=== PATIENT | female | born 1965 | race Caucasian/White ===

== ENCOUNTER 2018-10-03 15:57 | Inpatient (IN) | payer MEDICARE, MEDICAID ==
[~2018-10-03] VITALS: Ht 177.8 cm; Wt 107.5 kg
--- NOTE | 2018-10-03 16:27 | NUR ---
PT BIBPA FROM SNF FOR BLE CELLULITISL PT AAOX4, PT ON MONITOR, VSS, NAD NOTED ,PENDING ER PROVIDER KIP
[2018-10-03 18:10] LABS: ALANINE AMINOTRANSFERASE 20 U/L (12-78); ALBUMIN 2.6 g/dL (3.4-5.0); ALKALINE PHOSPHATASE 191 U/L (46-116); ASPARTATE AMINOTRANSFERASE 14 U/L (15-37); BILIRUBIN,DIRECT 0.1 mg/dL (0.0-0.2); BILIRUBIN,TOTAL 0.3 mg/dL (0.2-1.0); CALCIUM, SERUM 9.1 mg/dL (8.5-10.1); CARBON DIOXIDE 28 mmol/L (21-32); CHLORIDE 103 mmol/L (98-107); CREATININE 2.4 mg/dL (0.6-1.3); GLUCOSE 51 mg/dL (74-106); POTASSIUM 4.2 mmol/L (3.5-5.1); SODIUM SERUM 137 mmol/L (136-145); TOTAL PROTEIN, SERUM 7.7 g/dL (6.4-8.2); UREA NITROGEN, BLOOD 66 mg/dL (7-18)
[2018-10-03] MEDS ORDERED: PIPERACILLIN /TAZOBACTAM 2.25 G in IV D5W 50 ML IV ONE (18:30)
[2018-10-03] MEDS ORDERED: VANCOMYCIN 1 GM in IV D5W 250 ML IV ONE (18:30)
[2018-10-03 18:53] LABS: BASOPHILS # (AUTO) 0.1 /CMM (0.0-0.2); BASOPHILS % (AUTO) 0.8 % (0.0-2.0); EOSINOPHILS % (AUTO) 3.6 % (0.0-6.0); HEMATOCRIT 36 % (33-45); HEMOGLOBIN 11.4 g/dL (11.5-14.8); LYMPHOCYTES # (AUTO) 1.5 /CMM (0.8-4.8); LYMPHOCYTES % (AUTO) 20.3 % (20.0-44.0); MEAN CORPUSCULAR HGB CONC 32 g/dl (31.0-36.0); MEAN CORPUSCULAR VOLUME 78 fL (82-100); NEUTROPHILS # (AUTO) 4.6 /CMM (1.8-8.9); NEUTROPHILS % (AUTO) 62.3 % (43.0-81.0); PLATELET COUNT (AUTO) 237 /CMM (150-450); RED BLOOD CELL COUNT(AUTO) 4.68 MIL/uL (4.0-5.2); WHITE BLOOD COUNT (AUTO) 7.4 K/uL (4.3-11.0)
[2018-10-03] MEDS ORDERED: IV NS 0.9% 1,000 ML IV PRN (19:32)
[2018-10-03] MEDS ORDERED: MAG HYDROX/AL HYDROX/SIMETH 30 ML UDC PO PRN (20:00)
[2018-10-03] MEDS ORDERED: DEXTROSE 50%-WATER 50 ML DISP.SYRIN IV PRN (20:00)
[2018-10-03] MEDS ORDERED: ZOLPIDEM TARTRATE 5 MG TABLET PO PRN (20:00)
[2018-10-03] MEDS ORDERED: MAGNESIUM HYDROXIDE 30 ML UDC PO PRN (20:00)
[2018-10-03] MEDS ORDERED: ACETAMINOPHEN 325 MG TABLET PO PRN (20:00)
[2018-10-03 20:40] LABS: APPEARANCE,URINE Clear (CLEAR); BILIRUBIN,URINE Negative (NEGATIVE); BLOOD, URINE Trace-intact Ery/uL (NEGATIVE); COLOR,URINE Yellow (YELLOW); KETONES,URINE Negative (NEGATIVE); LEUKOCYTE ESTERASE ,URINE Negative (NEGATIVE); NITRITE, URINE Negative (NEGATIVE); PROTEIN,URINE 100 mg/dl (NEGATIVE); UGLUCOSE Negative (NEGATIVE); UROBILINOGEN,URINE 0.2 EU/dL (0.2)
[2018-10-03 20:44] LABS: BACTERIA,URINE Rare /HPF (None Seen); RBC,URINE 21-50 /HPF (0-2); SQUAMOUS EPITHELIAL CELL,UR Few /HPF (None Seen); WBC,URINE NONE SEEN /HPF (0-3)
[2018-10-03] MEDS ORDERED: FEE PK DOSING 1 MIN EA MC ONE (20:59)
[2018-10-03] MEDS ORDERED: IV D5/ 0.9% NACL 1,000 ML IV PRN (21:00)
[2018-10-03] MEDS ORDERED: CLON1TAB PO (21:03)
[2018-10-03] MEDS ORDERED: GUAI100S9 PO (21:03)
[2018-10-03] MEDS ORDERED: AMOX-430 PO (21:03)
[2018-10-03] MEDS ORDERED: FERR325T23 PO (21:03)
[2018-10-03] MEDS ORDERED: DULO60CA45 PO (21:03)
[2018-10-03] MEDS ORDERED: PANT40TA4 PO (21:03)
[2018-10-03] MEDS ORDERED: PROP40TA7 PO (21:03)
[2018-10-03] MEDS ORDERED: HYDR-4077 PO (21:03)
[2018-10-03] MEDS ORDERED: GABA300C PO (21:03)
[2018-10-03] MEDS ORDERED: DIPH50CA4 PO (21:03)
[2018-10-03] MEDS ORDERED: ACET-73 PO (21:03)
[2018-10-03] MEDS ORDERED: INSU100V27 SQ ×2 (21:03)
[2018-10-03] MEDS ORDERED: DOCU100C36 PO (21:03)
[2018-10-03] MEDS ORDERED: IPRA3AMP23 IH (21:03)
[2018-10-03] MEDS ORDERED: ACET325T53 PO (21:03)
[2018-10-03] MEDS ORDERED: EPOE1VIA7 SQ (21:03)
[2018-10-03] MEDS ORDERED: VIT1TABL44 PO (21:03)
[2018-10-03] MEDS ORDERED: METH10TA2 PO (21:03)
[2018-10-03] MEDS ORDERED: HYDR-4354 PO (21:03)
[2018-10-03] MEDS ORDERED: CLON0.1T PO (21:03)
[2018-10-03] MEDS ORDERED: FURO80TA85 PO (21:03)
[2018-10-03] MEDS ORDERED: ASPI-1169 PO (21:03)
[2018-10-03] MEDS ORDERED: PREG200C PO (21:03)
[2018-10-03] MEDS ORDERED: INSU100V7 SQ (21:03)
--- NOTE | 2018-10-03 21:10 | NUR ---
REPORT GIVEN TO DANUTA GARCIA FOR EARLE
--- NOTE | 2018-10-03 21:50 | NUR ---
DANUTA MS ADMISSION NOTES RECEIVED PATIENT FROM ER [facility]IA [facility]. DX. BILATERAL LOWER EXT. CELLULITIS; ACUTE KIDNEY INJURY. PATIENT IS ALERT AND ORIENTED X3, VERBALLY RESPONSIVE, ABLE TO MAKE NEEDS KNOWN. BREATHING EVEN AND UNLABORED. NO SOB NOTED. TOLERATING ROOM AIR. WITH COMPLAINTS OF PAIN ON BILATERAL LOWER EXT 10/10. WILL GIVE PRN PAIN MEDICATION. SKIN DRY AND WARM TO TOUCH. AFEBRILE. IV ON LEFT FOREARM G#18 INTACT AND PATENT. EXPLAINED THE PROCESS OF ADMISSION. SKIN ASSESSMENT RENDERED - NOTED WITH MULTIPLE WOUNDS AND REDNESS. PICTURES TAKEN AND PLACED IN CHART. ORIENTED TO THE USE OF UNIT AMENITIES. BELONGINGS ACCOUNTED FOR. PATIENT IS AMBULATORY WITH ASSIST. SAFETY MEASURES IN PLACE. CALL LIGHT WITHIN REACH. WILL CONTINUE TO MONITOR.
--- NOTE | 2018-10-03 22:00 | NUR ---
RN MS NOTES SUGGESTED PATIENT TO BE ON BED REST AND USE A BED TO AVOID STRAIN ON LOWER EXTREMITIES. PATIENT REFUSED BED ADAMS. OFFERED A BEDSIDE COMMODE SO THAT PATIENT DOES NOT HAVE TO WALK LONG DISTANCE BUT REFUSED THAT ALSO. WILL CONTINUE TO MONITOR.
[2018-10-03] MEDS: HYDROCODONE/APAP 10/325MG 1 EA TABLET PO PRN (22:04)
[2018-10-03 22:15] VITALS: BP 132/88
[2018-10-03] MEDS: BLOOD SUGAR DIAGNOSTIC 1 EACH STRIP IN SCH (22:36)
[2018-10-03] MEDS: INSULIN REGULAR, HUMAN 100 UNIT/ML 3 ML VIAL SQ PRN (22:38)
[2018-10-04] MEDS ORDERED: PIPERACILLIN /TAZOBACTAM 2.25 G VIAL IV ONE (04:09)
[2018-10-04] MEDS ORDERED: PIPERACILLIN /TAZOBACTAM 2.25 G in IV D5W 50 ML IV SCH (05:00)
[2018-10-04] MEDS: HYDROCODONE/APAP 10/325MG 1 EA TABLET PO PRN ×2 (05:06→10:04)
[2018-10-04] MEDS: BLOOD SUGAR DIAGNOSTIC 1 EACH STRIP IN SCH ×4 (06:30→22:00)
[2018-10-04] MEDS: INSULIN REGULAR, HUMAN 100 UNIT/ML 3 ML VIAL SQ PRN ×4 (06:31→22:16)
--- NOTE | 2018-10-04 06:48 | NUR ---
RN MS CLOSING NOTES PATIENT RESTING IN BED. NO ACUTE CHANGES THROUGHOUT SHIFT. BREATHING EVEN AND UNLABORED. NO SOB NOTED. TOLERATING ROOM AIR. CURRENTLY WITH NO COMPLAINTS OF PAIN OR DISCOMFORT. SKIN DRY AND WARM TO TOUCH. AFEBRILE. IV ON LEFT FOREARM G#18 INTACT AND PATENT. IVF HELD DUE TO BLOOD SUGAR OF 225. SAFETY MEASURES IN PLACE. CALL LIGHT WITHIN REACH. WILL ENDORSE TO ONCOMING NURSE FOR EARLE.
[2018-10-04 07:25] LABS: BASOPHILS % (AUTO) 0.4 % (0.0-2.0); EOSINOPHILS % (AUTO) 2.3 % (0.0-6.0); HEMATOCRIT 34 % (33-45); HEMOGLOBIN 10.7 g/dL (11.5-14.8); LYMPHOCYTES # (AUTO) 1.4 /CMM (0.8-4.8); LYMPHOCYTES % (AUTO) 24.9 % (20.0-44.0); MEAN CORPUSCULAR HGB CONC 31 g/dl (31.0-36.0); MEAN CORPUSCULAR VOLUME 79 fL (82-100); MONOCYTES # (AUTO) 0.7 /CMM (0.1-1.30); NEUTROPHILS # (AUTO) 3.4 /CMM (1.8-8.9); NEUTROPHILS % (AUTO) 60.4 % (43.0-81.0); PLATELET COUNT (AUTO) 181 /CMM (150-450); RED BLOOD CELL COUNT(AUTO) 4.32 MIL/uL (4.0-5.2); WHITE BLOOD COUNT (AUTO) 5.6 K/uL (4.3-11.0)
[2018-10-04 07:40] LABS: THYROID STIMULATING HORMONE 3.296 uIU/mL (0.358-3.74)
--- NOTE | 2018-10-04 07:45 | NUR ---
MS/RN - Assessment Patient in bed awake, A/O x 4, denies pain, no evidence of resp. distress, stable on room air. Saline lock on the LFA is patent, intact, with no complications. Skin assessment done, noted with bilateral lower ext open wounds with dressing in place. Wound nurse triggered. Patient currently on Zosyn and Vancomycin for Cellulitis. Patient independent with bed mobility and ambulatory with assist. Patient with no further episodes of hypoglycemia overnight. Patient is non-compliant with diet. Diabetes education provided. All needs attended. Fall precautions maintained. Plan of care discussed with patient and in agreement.
[2018-10-04 07:46] LABS: CALCIUM, SERUM 8.3 mg/dL (8.5-10.1); CREATININE 2.3 mg/dL (0.6-1.3); PHOSPHORUS 4.1 mg/dL (2.5-4.9); POTASSIUM 4.9 mmol/L (3.5-5.1)
[2018-10-04 08:00] VITALS: BP 158/68
[2018-10-04] MEDS: PIPERACILLIN /TAZOBACTAM 2.25 G in IV D5W 50 ML IV SCH ×2 (12:30→17:15)
[2018-10-04] MEDS: GABAPENTIN 300 MG CAPSULE PO SCH ×2 (13:10→17:05)
[2018-10-04] MEDS: METHADONE HCL 10 MG TABLET PO SCH ×2 (13:10→17:16)
[2018-10-04 13:59] LABS: APPEARANCE,URINE SL CLOUDY (CLEAR); BILIRUBIN,URINE NEGATIVE (NEGATIVE); BLOOD, URINE 1+ Ery/uL (NEGATIVE); COLOR,URINE YELLOW (YELLOW); KETONES,URINE NEGATIVE (NEGATIVE); LEUKOCYTE ESTERASE ,URINE NEGATIVE (NEGATIVE); NITRITE, URINE NEGATIVE (NEGATIVE); PROTEIN,URINE 2+ mg/dl (NEGATIVE); UGLUCOSE NEGATIVE (NEGATIVE); UROBILINOGEN,URINE 0.2 EU/dL (0.2)
[2018-10-04 14:09] LABS: CREATININE, URINE 55.5 MG/DL (30.0-125.0); URINE TOTAL PROTEIN 137.6 mg/dL (0-11.9)
[2018-10-04 14:21] LABS: BACTERIA,URINE Few /HPF (None Seen); SQUAMOUS EPITHELIAL CELL,UR Many /HPF (None Seen)
[2018-10-04 14:22] LABS: WBC,URINE 0-2 /HPF (0-3)
[2018-10-04] MEDS ORDERED: VANCOMYCIN 1 GM in IV D5W 250 ML IV SCH ×5 (15:00→21:00)
[2018-10-04 15:32] LABS: EOSINOPHIL,URINE None Seen
[2018-10-04 16:00] VITALS: BP 145/72
[2018-10-04 16:45] VITALS: BP 120/75
[2018-10-04] MEDS: LACTOBACILLUS RHAMNOSUS GG 1 EACH CAP.SPRINK PO SCH (17:06)
--- NOTE | 2018-10-04 18:28 | NUR ---
MS/RN - Closing notes No new events seen. Patient s/p BLE wound debridement today by Dr. Anthony, wound care done as ordered. Health information records obtained from [facility] per Dr. Looney's request, please see chart. Blood glucose controlled, insulin given per sliding scale coverage. All needs attended. Will continue with current medical management.
--- NOTE | 2018-10-04 19:30 | NUR ---
MS BRIDGE CLUB MANAGER INITIAL NOTES RECEIVED REPORT FROM AM NURSE CHAZ AND SEEN PT IN BED ON SEMI FOWLERS POSITION WITH SIDE RAILS X2 UP . PT COMPLAINING OF PAIN OF HER IV SITE AND FOUND OUT ITS SWOLLEN AND INFILTRATED , REMOVED THE IV SITE AND NEW IV LINE INSERTED ON HER RIGHT FOREARM GAUGE 22 SECURED AND OFFLOAD LEFT ARM ON PILLOWS AND APPLIED COMPRESS . KEPT HER WARM AND COMFORTABLE AT ALL TIMES. ENCOURAGE HER TO USED THE CALL LIGHT SYSTEM IF SHE NEEDS SOME HELPED. BLOOD PRESSURE 188/93 AT THIS TIME . PT STATED SHE USUALLY TAKING BP MEDS BUT NOT YET CONTINUE ORDERED. SPOKE TO THE PT THAT I WILL CALL RESPIRATORY SUPERVISOR MD TO LET THEM KNOW. WILL CONTINUE MONITORING.
[2018-10-04 20:00] VITALS: BP_SYST 183; BP_SYST 188; BP_DIAS 93
--- NOTE | 2018-10-04 20:30 | NUR ---
MANAGER SALES SUPPORT NOTES NOTIFIED GLASS EDGER MD AND GOT ORDERED NOTED AND CARRIED OUT. WAITING FOR PHARMACY FOR VERIFICATION.
[2018-10-04] MEDS: HYDROCODONE/APAP 5/325MG 1 EACH TABLET PO PRN (20:40)
--- NOTE | 2018-10-04 20:40 | NUR ---
MS MAINSPRING FABRICATION SUPERVISOR NOTES HYDRALAZINE 10 MG PO GIVEN FOR HER HIGH BP THEN NORCO TABLET WELL FOR HER LEG LOWER PAIN ORDERED. PT SATED "THANK YOU ". WILL RE- ASSESS LATER.
[2018-10-04] MEDS: hydrALAZINE HCL 10 MG TABLET PO PRN (20:41)
[2018-10-04] MEDS: CEFEPIME 1 GM in IV D5W 50 ML IV SCH (20:55)
[2018-10-04] MEDS: CLINDAMYCIN 900 MG in IV NS 0.9% 50 ML IV SCH (22:00)
[2018-10-05] VITALS: BP 158/84
--- NOTE | 2018-10-05 | NUR ---
MS PRINTER SLOTTER HELPER NOTES PT RESTING COMFORTABLY IN BED WITHOUT ANY ACUTE DISTRESS NOTED AT THIS TIME. BLOOD PRESSURE WITHIN NORMAL LIMIT. KEPT HER WARM AND COMFORTABLE AT ALL TIMES. WILL CONTINUE MONITORING. PLACE CALL LIGHT AT REACH.
[2018-10-05] MEDS: METHADONE HCL 10 MG TABLET PO SCH ×4 (01:09→18:05)
[2018-10-05] MEDS: HYDROCODONE/APAP 5/325MG 1 EACH TABLET PO PRN ×2 (05:14→14:37)
[2018-10-05] MEDS: hydrALAZINE HCL 10 MG TABLET PO PRN (05:17)
[2018-10-05] MEDS: IV NS 0.9% 1,000 ML BAG IV PRN (05:20)
[2018-10-05] MEDS: CLINDAMYCIN 900 MG in IV NS 0.9% 50 ML IV SCH ×3 (05:31→22:38)
[2018-10-05] MEDS: INSULIN REGULAR, HUMAN 100 UNIT/ML 3 ML VIAL SQ PRN ×4 (06:11→22:06)
[2018-10-05] MEDS: BLOOD SUGAR DIAGNOSTIC 1 EACH STRIP IN SCH ×4 (06:12→22:03)
--- NOTE | 2018-10-05 06:19 | NUR ---
MS RADIATION / CHEMISTRY TECHNICIAN NOTES BLOOD SUGAR 305 , NO SIGNS OF HYPER GLYCEMIA NOTED, 8 UNITS OF INSULIN GIVEN ORDERED. NOTICED PT HAD BAG OF CHOCOLATE AT THE BEDSIDE. EDUCATE THE PATIENT REGARDING HER DIET AND THE SIDE EFFECT OF EATING CHOCOLATE BUT PT STATED "IT'S OK YOU GIVEN ME INSULIN SHOT SO IT WILL WENT DOWN. WILL CONTINUE MONITORING.
--- NOTE | 2018-10-05 07:15 | NUR ---
MS/RN - Assessment Patient in bed awake, watching TV, A/O x 4, denies pain, stable on room air. IVF NS at 100 ml/hr infusing well on the RFA with no complications. Will do wound care to bilateral lower ext open wounds. Patient independent with bed mobility and ambulatory with assist. Patient is non-compliant with diet, re-educated regarding diabetes management. All needs attended. Fall precautions maintained. Will continue with current medical management.
--- NOTE | 2018-10-05 07:17 | NUR ---
MS ANNUAL GREENHOUSE MANAGER CLOSING NOTES . PT AWAKE AND ALERT SITING ON HER BED WITH IVF NS AT 100 ML/HR INFUSING ON HER RIGHT FOREARM .NO SIGN OF INFILTRATED NOTED. SLEPT WELL . ALL DUE MEDS GIVEN AND ALL NEEDS MET. KEPT HER WARM AND COMFORTABLE AT ALL TIMES. PLACE CALL LIGHT AT REACH. WILL ENDORSE TO AM NURSE FOR CONTINUITY OF CARE.
[2018-10-05 07:26] LABS: BASOPHILS % (AUTO) 0.5 % (0.0-2.0); EOSINOPHILS % (AUTO) 3.1 % (0.0-6.0); HEMATOCRIT 34 % (33-45); HEMOGLOBIN 10.6 g/dL (11.5-14.8); LYMPHOCYTES # (AUTO) 1.3 /CMM (0.8-4.8); LYMPHOCYTES % (AUTO) 24.7 % (20.0-44.0); MEAN CORPUSCULAR HGB CONC 32 g/dl (31.0-36.0); MEAN CORPUSCULAR VOLUME 78 fL (82-100); MONOCYTES # (AUTO) 0.6 /CMM (0.1-1.30); MONOCYTES % (AUTO) 10.7 % (2.0-12.0); NEUTROPHILS # (AUTO) 3.3 /CMM (1.8-8.9); PLATELET COUNT (AUTO) 186 /CMM (150-450); RED BLOOD CELL COUNT(AUTO) 4.32 MIL/uL (4.0-5.2); WHITE BLOOD COUNT (AUTO) 5.4 K/uL (4.3-11.0)
[2018-10-05 07:30] VITALS: BP 156/79
[2018-10-05 07:34] LABS: ALBUMIN 2.3 g/dL (3.4-5.0); BILIRUBIN,TOTAL 0.3 mg/dL (0.2-1.0); CALCIUM, SERUM 8.4 mg/dL (8.5-10.1); CREATININE 1.9 mg/dL (0.6-1.3); MAGNESIUM 1.8 mg/dL (1.8-2.4); PHOSPHORUS 3.9 mg/dL (2.5-4.9); POTASSIUM 4.4 mmol/L (3.5-5.1); TOTAL PROTEIN, SERUM 6.9 g/dL (6.4-8.2)
[2018-10-05] MEDS: LACTOBACILLUS RHAMNOSUS GG 1 EACH CAP.SPRINK PO SCH ×2 (08:12→16:51)
[2018-10-05] MEDS: GABAPENTIN 300 MG CAPSULE PO SCH ×3 (08:12→16:51)
[2018-10-05] MEDS ORDERED: GUAIFENESIN 300 MG/15 ML UDC PO PRN (10:00)
[2018-10-05] MEDS ORDERED: clonazePAM 1 MG TABLET PO PRN (10:00)
[2018-10-05] MEDS ORDERED: diphenhydrAMINE HCL 50 MG CAPSULE PO PRN (10:00)
[2018-10-05] MEDS ORDERED: CLONIDINE HCL 0.1 MG TABLET PO PRN (10:00)
[2018-10-05] MEDS: INSULIN LISPRO/ASPART 100 UNIT/ML CARTRIDGE SQ SCH ×3 (10:27→17:55)
--- NOTE | 2018-10-05 10:28 | NUR ---
MS/RN - Notes (10:30 insulin dose) Patient was not given 10:30 dose (2 units regular insulin) due to pt ate breakfast at 07:30 am, sliding scale coverage was given that time.
[2018-10-05] MEDS ORDERED: ALBUTEROL FS 2.5 MG/0.5 ML VIAL.NEB NEB PRN (10:30)
[2018-10-05] MEDS: PREGABALIN 100 MG CAPSULE PO SCH ×4 (10:30→16:33)
[2018-10-05] MEDS ORDERED: IPRATROPIUM NEB FS 0.5 MG/2.5 ML AMPUL.NEB NEB PRN (10:30)
[2018-10-05] MEDS: FERROUS SULFATE (325 MG) 325 MG/TAB TABLET PO SCH ×2 (11:00→16:52)
[2018-10-05] MEDS: PANTOPRAZOLE 40 MG TABLET.DR PO SCH (11:00)
[2018-10-05] MEDS: VIT B CMPLX 3/FA/VIT C/BIOTIN 1 TAB TABLET PO SCH (11:00)
[2018-10-05] MEDS: DOCUSATE SODIUM 100 MG CAPSULE PO SCH ×2 (11:00→16:51)
[2018-10-05] MEDS: ASPIRIN 81 MG TAB.CHEW PO SCH ×2 (11:01→16:51)
[2018-10-05] MEDS: hydrALAZINE HCL 50 MG TABLET PO SCH ×3 (11:01→16:51)
[2018-10-05] MEDS: PROPRANOLOL HCL 40 MG TABLET PO SCH ×2 (11:02→16:52)
[2018-10-05] MEDS: FUROSEMIDE 80 MG TABLET PO SCH (11:02)
[2018-10-05 16:00] VITALS: BP 147/76
--- NOTE | 2018-10-05 18:15 | NUR ---
MS/RN - Closing notes No significant change in condition seen, remain afebrile, pain well controlled. Education regarding smoking cessation given. Wound treatment done as ordered. All needs attended. Will continue with current medical management.
--- NOTE | 2018-10-05 19:25 | NUR ---
RN Notes Received patient in bed, alert and oriented x4, on room air and tolerated well. Pain on both lower leg at tolerable level at this time/10. Both lower leg dressing loose, dressing fixed and reinforced. IV access on rifgt fore arm patent and intact. Safety measures and fall precaution observed. All needs attended. Will continue to monitor.
[2018-10-05 20:25] VITALS: BP 154/95
[2018-10-05] MEDS: CEFEPIME 1 GM in IV D5W 50 ML IV SCH (20:32)
[2018-10-05] MEDS: HYDROCODONE/APAP 10/325MG 1 EA TABLET PO PRN (20:38)
--- NOTE | 2018-10-05 20:38 | NUR ---
RN Notes Patient complains of pain on her left and right lower leg, 8/10. [place] 10/325 mg tab given po and tolerated well. Will continue to monitor pt.
[2018-10-05 22:00] VITALS: BP 154/95
[2018-10-05] MEDS: INSULIN GLARGINE, 100 UNIT/ML CARTRIDGE SQ SCH (22:05)
--- NOTE | 2018-10-05 22:16 | NUR ---
RN Notes Patient verbalizing difficulty to sleep, Ambien 5 mg tab given PO. Will continue to monitor.
[2018-10-06] MEDS: METHADONE HCL 10 MG TABLET PO SCH ×4 (01:01→19:11)
[2018-10-06] MEDS: CLINDAMYCIN 900 MG in IV NS 0.9% 50 ML IV SCH ×3 (05:03→21:32)
[2018-10-06] MEDS: HYDROCODONE/APAP 10/325MG 1 EA TABLET PO PRN ×3 (05:50→21:51)
--- NOTE | 2018-10-06 05:52 | NUR ---
RN Notes Patient stable overnight, afebrile. On room air and tolerated well. Kept pain at tolerable level. Denies nausea and vomiting. Kept right lower leg elevated. Fall precaution observed. All needs attended. Will endorse to morning RN for continuity of care.
[2018-10-06] MEDS: BLOOD SUGAR DIAGNOSTIC 1 EACH STRIP IN SCH ×4 (06:51→21:32)
[2018-10-06] MEDS: INSULIN REGULAR, HUMAN 100 UNIT/ML 3 ML VIAL SQ PRN ×4 (06:53→21:49)
--- NOTE | 2018-10-06 07:15 | NUR ---
PT RESTING COMFORTABLY IN BED WITHOUT ANY ACUTE DISTRESS NOTED AT THIS TIME.WILL CONTINUE MONITORING.SAFETY MEASURES OBSERVED. CALL LIGHT WITHIN REACH.
[2018-10-06 07:16] LABS: BASOPHILS % (AUTO) 0.5 % (0.0-2.0); EOSINOPHILS % (AUTO) 3.7 % (0.0-6.0); HEMATOCRIT 35 % (33-45); HEMOGLOBIN 11.1 g/dL (11.5-14.8); LYMPHOCYTES # (AUTO) 1.2 /CMM (0.8-4.8); LYMPHOCYTES % (AUTO) 21.8 % (20.0-44.0); MEAN CORPUSCULAR HGB CONC 32 g/dl (31.0-36.0); MEAN CORPUSCULAR VOLUME 78 fL (82-100); MONOCYTES # (AUTO) 0.6 /CMM (0.1-1.30); MONOCYTES % (AUTO) 11.5 % (2.0-12.0); NEUTROPHILS # (AUTO) 3.5 /CMM (1.8-8.9); NEUTROPHILS % (AUTO) 62.5 % (43.0-81.0); PLATELET COUNT (AUTO) 213 /CMM (150-450); RED BLOOD CELL COUNT(AUTO) 4.55 MIL/uL (4.0-5.2); WHITE BLOOD COUNT (AUTO) 5.6 K/uL (4.3-11.0)
[2018-10-06 07:36] LABS: CALCIUM, SERUM 8.5 mg/dL (8.5-10.1); CREATININE 1.8 mg/dL (0.6-1.3); MAGNESIUM 1.8 mg/dL (1.8-2.4); PHOSPHORUS 5.1 mg/dL (2.5-4.9); POTASSIUM 4.9 mmol/L (3.5-5.1)
[2018-10-06 08:00] VITALS: BP 140/81
[2018-10-06] MEDS: INSULIN LISPRO/ASPART 100 UNIT/ML CARTRIDGE SQ SCH ×3 (08:00→18:00)
[2018-10-06] MEDS ORDERED: POLYVINYL ALCOHOL 15 ML BOTTLE EACHEYE PRN (08:30)
[2018-10-06] MEDS: DULOXETINE HCL 30 MG CAPSULE.DR PO SCH (08:47)
[2018-10-06] MEDS: PANTOPRAZOLE 40 MG TABLET.DR PO SCH (08:48)
[2018-10-06] MEDS: FUROSEMIDE 80 MG TABLET PO SCH (08:48)
[2018-10-06] MEDS: ASPIRIN 81 MG TAB.CHEW PO SCH ×2 (08:48→17:23)
[2018-10-06] MEDS: VIT B CMPLX 3/FA/VIT C/BIOTIN 1 TAB TABLET PO SCH (08:49)
[2018-10-06] MEDS: hydrALAZINE HCL 50 MG TABLET PO SCH ×3 (08:49→17:24)
[2018-10-06] MEDS: GABAPENTIN 300 MG CAPSULE PO SCH ×3 (08:49→17:23)
[2018-10-06] MEDS: DOCUSATE SODIUM 100 MG CAPSULE PO SCH ×2 (08:49→17:23)
[2018-10-06] MEDS: PROPRANOLOL HCL 40 MG TABLET PO SCH ×2 (08:50→17:00)
[2018-10-06] MEDS: LACTOBACILLUS RHAMNOSUS GG 1 EACH CAP.SPRINK PO SCH ×2 (08:50→17:23)
[2018-10-06] MEDS: FERROUS SULFATE (325 MG) 325 MG/TAB TABLET PO SCH ×2 (08:51→17:23)
[2018-10-06] MEDS: PREGABALIN 100 MG CAPSULE PO SCH ×3 (08:53→17:00)
[2018-10-06 11:12] LABS: *SPE A/G RATIO 0.7 (0.7-1.7); *SPE ALBUMIN 2.5 g/dL (2.9-4.4); *SPE ALPHA-1-GLOBULIN 0.3 g/dL (0.0-0.4); *SPE ALPHA-2-GLOBULIN 0.8 g/dL (0.4-1.0); *SPE GLOBULIN, TOTAL 3.6 g/dL (2.2-3.9); *SPE M-SPIKE Not Observed g/dL (Not Observed); *SPEGAMMA GLOBULIN 1.6 g/dL (0.4-1.8)
[2018-10-06 12:12] LABS: PTH, INTACT 66 pg/mL (15-65)
[2018-10-06 16:00] VITALS: BP 156/82
--- NOTE | 2018-10-06 16:00 | NUR ---
PATIENT IS COMPLAINING OF PAIN AND ITCHING IN BOTH EYES. Sandra MARCELO INFORMED.
[2018-10-06] MEDS: TOBRAMYCIN OPHTH 5ML 5 ML BOTTLE EACHEYE SCH ×2 (19:11→22:41)
--- NOTE | 2018-10-06 19:20 | NUR ---
PT RESTING IN BED, NO DISTRESS NOTED, ON ROOM AIR WITH O2 SATURATION 97%. LAST METHADONE DOSE GIVEN AT 1900, EYE DROPS TOBRAMYCIN ADMINISTRATED, WOUND CARE DONE. ALL NEEDS ATTENDED. SAFETY PRECAUTIONS IN PLACE AND CALL LIGHT WITHIN REACH. WILL ENDORSE TO NEXT SHIFT FOR EARLE.
--- NOTE | 2018-10-06 19:58 | NUR ---
MS RN NOTES RECEIVED PATIENT AWAKE IN BED AND WATCHING TV. NO DISTRESS NOTED. CALL LIGHT WITHIN REACH. NO C/O PAIN OR DISCOMFORT. PERIPHERAL LINE SALINE LOCKED PER PATIENT REQUEST. IV LINE INTACT AND PATENT. PLAN OF CARE, SUCH MEDICATION AND WOUND TREATMENT REGIMEN, REDISCUSSED WITH PATIENT AND VERBALIZED GOOD UNDERSTANDING. BED IN LOW LOCK SETTING. ALL BELONGINGS KEPT NEAR BEDSIDE. WILL CONTINUE TO MONITOR.
[2018-10-06 20:00] VITALS: BP 147/79
[2018-10-06] MEDS: CEFEPIME 1 GM in IV D5W 50 ML IV SCH (20:14)
[2018-10-06] MEDS: INSULIN GLARGINE, 100 UNIT/ML CARTRIDGE SQ SCH (21:46)
[2018-10-07] MEDS: METHADONE HCL 10 MG TABLET PO SCH ×5 (00:54→18:18)
[2018-10-07] MEDS: TEMAZEPAM 15 MG CAPSULE PO PRN ×2 (02:11→21:34)
[2018-10-07] MEDS: TOBRAMYCIN OPHTH 5ML 5 ML BOTTLE EACHEYE SCH ×5 (02:11→18:18)
[2018-10-07] MEDS: CLINDAMYCIN 900 MG in IV NS 0.9% 50 ML IV SCH ×2 (05:41→12:32)
[2018-10-07] MEDS: BLOOD SUGAR DIAGNOSTIC 1 EACH STRIP IN SCH ×4 (06:41→22:50)
--- NOTE | 2018-10-07 06:49 | NUR ---
MS RN NOTES PATIENT ASLEEP IN BED WITH NO DISTRESS NOTED. CALL LIGHT WITHIN REACH. ALL DUE MEDS GIVEN ORDERED WITH NO ASE NOTED. PERIPHERAL LINE INTACT AND PATENT. NO C/O PAIN OR DISCOMFORT. BED IN LOW LOCK SETTING. ROOM FREE OF CLUTTER AND BELONGINGS KEPT NEAR BEDSIDE. WILL CONTINUE TO MONITOR.
--- NOTE | 2018-10-07 07:27 | NUR ---
MS RN OPENING NOTE RECEIVED PT IN BED SLEEPING AND EASILY AROUSABLE. PT IS A/O X4, DENIES CHEST PAIN, SOB, N/V. BREATHING IS EVEN AND UNLABORED ON ROOM AIR. PT HAS A RIGHT FA #22G IV WITH ORDERS FOR NS @ 75ML/HR HOWEVER PT IS REFUSING IV FLUIDS AT THIS TIME. RISKS AND BENEFITS EXPLAINED, PT STILL REFUSED. IV SITE IS PATENT, CLEAN DRY AND INTACT WITHOUT SWELLING OR REDNESS. RIGHT AND LEFT LEG DRESSING ARE CLEAN, DRY AND INTACT. ASSISTED PT TO ELEVATE LEGS ON PILLOWS. ALL NEEDS ATTENDED TO. BED IS LOCKED AND IN LOWEST POSITION, SIDE RAILS UP X2, CALL LIGHT AND POSSESSIONS WITHIN REACH.
[2018-10-07] MEDS: PANTOPRAZOLE 40 MG TABLET.DR PO SCH (07:30)
[2018-10-07 07:35] LABS: BASOPHILS % (AUTO) 0.7 % (0.0-2.0); EOSINOPHILS % (AUTO) 4.1 % (0.0-6.0); HEMATOCRIT 34 % (33-45); HEMOGLOBIN 10.8 g/dL (11.5-14.8); LYMPHOCYTES # (AUTO) 1.7 /CMM (0.8-4.8); LYMPHOCYTES % (AUTO) 27.3 % (20.0-44.0); MEAN CORPUSCULAR HGB CONC 32 g/dl (31.0-36.0); MEAN CORPUSCULAR VOLUME 77 fL (82-100); MONOCYTES # (AUTO) 0.8 /CMM (0.1-1.30); MONOCYTES % (AUTO) 13.6 % (2.0-12.0); NEUTROPHILS # (AUTO) 3.3 /CMM (1.8-8.9); NEUTROPHILS % (AUTO) 54.3 % (43.0-81.0); PLATELET COUNT (AUTO) 235 /CMM (150-450); RED BLOOD CELL COUNT(AUTO) 4.43 MIL/uL (4.0-5.2); WHITE BLOOD COUNT (AUTO) 6.1 K/uL (4.3-11.0)
[2018-10-07 07:56] LABS: CALCIUM, SERUM 8.4 mg/dL (8.5-10.1); CREATININE 1.8 mg/dL (0.6-1.3); PHOSPHORUS 5.3 mg/dL (2.5-4.9); POTASSIUM 4.5 mmol/L (3.5-5.1)
[2018-10-07 08:00] VITALS: BP_SYST 113; BP_SYST 127; BP_SYST 137; BP_DIAS 59; BP_DIAS 73
[2018-10-07] MEDS: INSULIN LISPRO/ASPART 100 UNIT/ML CARTRIDGE SQ SCH ×3 (08:00→17:36)
[2018-10-07 08:02] LABS: MAGNESIUM 1.8 mg/dL (1.8-2.4)
[2018-10-07] MEDS: GABAPENTIN 300 MG CAPSULE PO SCH ×3 (08:58→17:26)
[2018-10-07] MEDS: DOCUSATE SODIUM 100 MG CAPSULE PO SCH ×2 (08:58→17:00)
[2018-10-07] MEDS: FUROSEMIDE 80 MG TABLET PO SCH (08:59)
[2018-10-07] MEDS: FERROUS SULFATE (325 MG) 325 MG/TAB TABLET PO SCH ×2 (08:59→17:26)
[2018-10-07] MEDS: PROPRANOLOL HCL 40 MG TABLET PO SCH ×2 (08:59→17:26)
[2018-10-07] MEDS: LACTOBACILLUS RHAMNOSUS GG 1 EACH CAP.SPRINK PO SCH ×2 (08:59→17:25)
[2018-10-07] MEDS: PREGABALIN 100 MG CAPSULE PO SCH ×3 (09:00→17:00)
[2018-10-07] MEDS: hydrALAZINE HCL 50 MG TABLET PO SCH ×3 (09:01→17:26)
[2018-10-07] MEDS: ASPIRIN 81 MG TAB.CHEW PO SCH ×2 (09:01→17:25)
[2018-10-07] MEDS: DULOXETINE HCL 30 MG CAPSULE.DR PO SCH (09:01)
[2018-10-07] MEDS: HYDROCODONE/APAP 10/325MG 1 EA TABLET PO PRN ×3 (09:01→21:01)
[2018-10-07] MEDS: VIT B CMPLX 3/FA/VIT C/BIOTIN 1 TAB TABLET PO SCH (09:01)
--- NOTE | 2018-10-07 09:15 | NUR ---
MS RN PT OFF UNIT PT OFF UNIT FOR SMOKE BREAK VIA WHEELCHAIR. VERIFIED SMOKING CONSENT SIGNED AND PLACED IN CHART. ACCOMPANIED BY NURSE ELEVATOR CONDUCTOR.
--- NOTE | 2018-10-07 09:30 | NUR ---
MS RN PT BACK ON UNIT PT BACK FROM SMOKE BREAK WITH NURSE UNDERWEAR WELTER. ASSISTED BACK TO BED, CALL LIGHT AND POSSESSIONS WITHIN REACH.
[2018-10-07] MEDS: INSULIN REGULAR, HUMAN 100 UNIT/ML 3 ML VIAL SQ PRN ×3 (12:52→21:03)
--- NOTE | 2018-10-07 14:30 | NUR ---
MS RN PT OFF UNIT PT OFF UNIT FOR SMOKE BREAK VIA WHEELCHAIR. ACCOMPANIED BY NURSE FURRIER DESIGNER.
--- NOTE | 2018-10-07 14:45 | NUR ---
MS RN PT BACK ON UNIT PT BACK ON UNIT FROM SMOKE BREAK. ASSISTED BACK TO BED AND AGREEABLE TO WOUND CARE AT THIS TIME.
[2018-10-07] MEDS: ONDANSETRON HCL/PF 4 MG/2 ML VIAL IVP PRN ×2 (15:26→21:34)
[2018-10-07] MEDS ORDERED: PSEUDOEPHEDRINE HCL 30 MG TABLET PO PRN (15:30)
[2018-10-07 16:00] VITALS: BP 120/75
--- NOTE | 2018-10-07 18:25 | NUR ---
MS RN CLOSING NOTE PT IN BED ALERT AND ORIENTED X4. PT DENIES CHEST PAIN, SOB, N/V. BREATHING IS EVEN AND UNLABORED ON ROOM AIR. PT RATES PAIN IN THE LOWER EXTREMITIES 5/10 AT THIS TIME. PT ADMINISTERED METHADONE 20MG @ 1818 ORDERED FOR PAIN CONTROL. PT HAS A RIGHT FA #22G IV WITH ORDERS FOR NS @ 100ML/HR HOWEVER PT IS REFUSING IV FLUIDS AT THIS TIME. RISKS AND BENEFITS EXPLAINED, PT STILL REFUSED. IV SITE IS PATENT, CLEAN DRY AND INTACT WITHOUT SWELLING OR REDNESS. WOUND CARE PROVIDED ORDERED. PT ASSISTED WITH ADLS AND TO TURN AND REPOSITION Q2H FOR DURATION OF THE SHIFT. PT WENT OUT FOR SMOKE BREAK WITH NURSE HOOKER MACHINE TENDER X 2. ALL NEEDS ATTENDED TO. BED IS LOCKED AND IN LOWEST POSITION, SIDE RAILS UP X2, CALL LIGHT AND POSSESSIONS WITHIN REACH. WILL ENDORSE TO WALL MIRROR DEPARTMENT SUPERVISOR NURSE FOR CONTINUITY OF CARE.
[2018-10-07 20:00] VITALS: BP 140/77
--- NOTE | 2018-10-07 20:00 | NUR ---
MS RN NOTES RECEIVED PATIENT AWAKE IN BED WITH NO DISTRESS NOTED. CALL LIGHT WITHIN REACH. NO C/O PAIN OR DISCOMFORT. PERIPHERAL LINE INTACT AND PATENT. BED IN LOW LOCK SETTING. ALL BELONGINGS KEPT NEAR BEDSIDE. WILL CONTINUE TO MONITOR.
[2018-10-07] MEDS: CEFEPIME 1 GM in IV D5W 50 ML IV SCH (20:01)
[2018-10-07] MEDS: INSULIN GLARGINE, 100 UNIT/ML CARTRIDGE SQ SCH (21:03)
[2018-10-07] MEDS ORDERED: CEFTRIAXONE 1GM BAG (ER ONLY) 1 GM/50 ML PIGGYBACK IV SCH (21:30)
[2018-10-07] MEDS ORDERED: CEFTRIAXONE 1 G VIAL ONE ×2 (21:44→21:46)
[2018-10-07] MEDS ORDERED: CEFTRIAXONE 2 G in IV D5W 100 ML IV SCH (22:00)
[2018-10-07] MEDS ORDERED: DAPTOMYCIN 500 MG in IV NS 0.9% 50 ML IV SCH (23:00)
[2018-10-08] MEDS: TOBRAMYCIN OPHTH 5ML 5 ML BOTTLE EACHEYE SCH ×5 (00:14→15:00)
[2018-10-08] MEDS: METHADONE HCL 10 MG TABLET PO SCH ×3 (00:14→12:14)
[2018-10-08] MEDS: IV NS 0.9% 1,000 ML BAG IV PRN ×2 (02:16→09:54)
[2018-10-08] MEDS: HYDROCODONE/APAP 10/325MG 1 EA TABLET PO PRN ×3 (02:17→15:07)
--- NOTE | 2018-10-08 06:47 | NUR ---
MS RN NOTES PATIENT AWAKE IN BED AND WATCHING TV. NO DISTRESS NOTED. CALL LIGHT WITHIN REACH. ALL DUE MEDS GIVEN ORDERED WITH NO ASE NOTED. NO FURTHER C/O PAIN OR DISCOMFORT. PERIPHERAL LINE INTACT AND PATENT. BED IN LOW LOCK SETTING. ALL BELONGINGS KEPT NEAR BEDSIDE. WILL ENDORSE TO ONCOMING SHIFT.
[2018-10-08] MEDS: BLOOD SUGAR DIAGNOSTIC 1 EACH STRIP IN SCH ×2 (07:27→11:51)
[2018-10-08 07:49] LABS: BASOPHILS % (AUTO) 0.5 % (0.0-2.0); EOSINOPHILS % (AUTO) 3.5 % (0.0-6.0); HEMATOCRIT 37 % (33-45); LYMPHOCYTES # (AUTO) 1.5 /CMM (0.8-4.8); LYMPHOCYTES % (AUTO) 24.9 % (20.0-44.0); MEAN CORPUSCULAR HGB CONC 32 g/dl (31.0-36.0); MEAN CORPUSCULAR VOLUME 77 fL (82-100); MONOCYTES # (AUTO) 0.6 /CMM (0.1-1.30); MONOCYTES % (AUTO) 10.4 % (2.0-12.0); NEUTROPHILS # (AUTO) 3.7 /CMM (1.8-8.9); NEUTROPHILS % (AUTO) 60.7 % (43.0-81.0); PLATELET COUNT (AUTO) 258 /CMM (150-450); RED BLOOD CELL COUNT(AUTO) 4.82 MIL/uL (4.0-5.2); WHITE BLOOD COUNT (AUTO) 6.2 K/uL (4.3-11.0)
[2018-10-08 08:00] VITALS: BP 136/68
[2018-10-08] MEDS: INSULIN LISPRO/ASPART 100 UNIT/ML CARTRIDGE SQ SCH ×2 (08:00→12:14)
[2018-10-08 08:06] LABS: CALCIUM, SERUM 8.6 mg/dL (8.5-10.1); CREATININE 1.7 mg/dL (0.6-1.3); PHOSPHORUS 5.5 mg/dL (2.5-4.9); POTASSIUM 4.5 mmol/L (3.5-5.1)
--- NOTE | 2018-10-08 08:15 | NUR ---
MS RN NOTE SPOKE WITH JOHN PAUL IN PHARMACY REGARDING CUBICIN IV. PER JOHN PAUL SHE WILL REVIEW MEDICATION AND SEND UP SHORTLY.
[2018-10-08] MEDS ORDERED: DAPTOMYCIN 500 MG in IV NS 0.9% 50 ML IV SCH (09:00)
[2018-10-08] MEDS: DOCUSATE SODIUM 100 MG CAPSULE PO SCH (09:00)
[2018-10-08] MEDS: PREGABALIN 100 MG CAPSULE PO SCH ×2 (09:00→12:14)
[2018-10-08] MEDS: LACTOBACILLUS RHAMNOSUS GG 1 EACH CAP.SPRINK PO SCH (09:16)
[2018-10-08] MEDS: GABAPENTIN 300 MG CAPSULE PO SCH ×2 (09:16→12:14)
[2018-10-08] MEDS: VIT B CMPLX 3/FA/VIT C/BIOTIN 1 TAB TABLET PO SCH (09:16)
[2018-10-08] MEDS: DULOXETINE HCL 30 MG CAPSULE.DR PO SCH (09:16)
[2018-10-08] MEDS: PANTOPRAZOLE 40 MG TABLET.DR PO SCH (09:16)
[2018-10-08] MEDS: PROPRANOLOL HCL 40 MG TABLET PO SCH (09:16)
[2018-10-08] MEDS: FUROSEMIDE 80 MG TABLET PO SCH (09:16)
[2018-10-08] MEDS: ASPIRIN 81 MG TAB.CHEW PO SCH (09:16)
[2018-10-08] MEDS: hydrALAZINE HCL 50 MG TABLET PO SCH ×2 (09:17→12:14)
[2018-10-08] MEDS: FERROUS SULFATE (325 MG) 325 MG/TAB TABLET PO SCH (09:17)
--- NOTE | 2018-10-08 09:20 | NUR ---
MS TIPTON PT OFF UNIT PT OFF UNIT FOR SMOKE BREAK VIA WHEELCHAIR. ACCOMPANIED BY CRUZITO
--- NOTE | 2018-10-08 09:38 | NUR ---
MS RN PT BACK ON UNIT PT BACK ON UNIT FROM SMOKE BREAK. ASSISTED BACK TO BED. CALL LIGHT AND POSSESSIONS WITHIN REACH.
[2018-10-08 12:14] VITALS: BP 156/77
[2018-10-08] MEDS: INSULIN REGULAR, HUMAN 100 UNIT/ML 3 ML VIAL SQ PRN (12:21)
[2018-10-08] MEDS ORDERED: GABA300C PO (12:37)
[2018-10-08] MEDS ORDERED: DAPT500V2 IV (12:37)
[2018-10-08] MEDS ORDERED: Polyvinyl Alcohol EACHEYE (12:37)
[2018-10-08] MEDS ORDERED: HYDR-3972 PO (15:18)
--- NOTE | 2018-10-08 16:22 | NUR ---
MS RN PT DISCHARGED PT DISCHARGED TO [facility] VIA AMBULANCE IN MEDICALLY STABLE CONDITION. PT IS A/0X4 DENIES CHEST PAIN, SOB, N/V, BREATHING IS EVEN AND UNLABORED ROOM AIR. PT MEDICATED WITH NORCO 10-325MG PO 1507 FOR PAIN IN THE BLE. REPORT GIVEN TO DANUTA RUANO FOR CONTINUITY OF CARE. INFORMED BINDU OF PT DAPTOMYCIN 500MG IV X 10 DAY ORDERED AND TO INCREASE GABAPENTIN FROM 300MG TO 600MG. DISCUSSED WOUND CARE ORDERS. INFORMED BINDU OF PT CONCERN REGARDING GETTING HER PAIN MEDICATION, SPECIFICALLY HER METHADONE 20MG ON TIME THIS EVENING. BINDU VERBALIZED UNDERSTANDING. PT ONLY ALLOWED FOR WOUND DOCUMENTATION OF LOWER EXTREMITIES AND REFUSED WOUND DOCUMENTATION OF GROIN AND BREAST AND ABD FOLDS AND SACRUM ON ADMISSION. THE NURSE EXPLAINED THE RISKS AND BENEFITS, HOWEVER THE PT BECAME TEARY AND STATED SHE WAS ANXIOUS AND EMBARRASSED AND REFUSED AGAIN. PT IS GOING TO [facility] WITH A RIGHT FA #22G IV THAT IS PATENT, CLEAN, DRY AND INTACT AND WITHOUT SWELLING OR REDNESS AT THIS TIME. DISCHARGE PAPERWORK AND EDUCATION PROVIDED PER PROTOCOL. ADLS AND BED BATH PROVIDED BY NURSE GENERAL HARDWARE SALESPERSON THIS AM AND OFFERED AGAIN PRIOR TO TRANSFER TO WHICH THE PT DECLINED. PT ASSISTED TO TURN AND REPOSITIONED Q2H FOR THE DURATION OF THE SHIFT. SPOKE WITH SHANEKA MARCELO NP REGARDING PT CONCERN OF D/C NORCO UPON ADMISSION AND CONCERNS OF INADEQUATE PAIN CONTROL AT SNF. SHANEKA UPDATED D/C AND ORDERS RECEIVE FOR NORCO 5-325MG Q4H NEEDED FOR PAIN. UPDATED DISCHARGE PAPERWORK AND INFORMED PT WHO VERBALIZED UNDERSTANDING AND AGREEMENT WITH THE PLAN OF CARE. WOUND CARE PROVIDED ORDERED PRIOR TO D/C. REPORT GIVEN TO AMBULANCE STAFF FOR TRANSFER PF CARE.
== END 2018-10-08 16:20 | DRG 264 ==
LOC: ER 15:58 → MED 20:37
PROVIDERS: ADMIT Nurse Practitioner Acute Care; ATTEND Nurse Practitioner Acute Care
PROC: 0JBR0ZZ Excision of Left Foot Subcutaneous Tissue and Fascia, Open Approach (ICD-10-PCS; principal; 2018-10-04)
DX: E11.51 Type 2 diabetes mellitus with diabetic peripheral angiopathy without gangrene (principal); N17.0 Acute kidney failure with tubular necrosis; L03.115 Cellulitis of right lower limb; E44.0 Moderate protein-calorie malnutrition; L03.116 Cellulitis of left lower limb; F11.20 Opioid dependence, uncomplicated; I12.9 Hypertensive chronic kidney disease with stage 1 through stage 4 chronic kidney disease, or unspecified chronic kidney disease; E11.649 Type 2 diabetes mellitus with hypoglycemia without coma; N18.9 Chronic kidney disease, unspecified; E11.22 Type 2 diabetes mellitus with diabetic chronic kidney disease; E66.9 Obesity, unspecified; Z68.39 Body mass index [BMI] 39.0-39.9, adult; E11.621 Type 2 diabetes mellitus with foot ulcer; L97.523 Non-pressure chronic ulcer of other part of left foot with necrosis of muscle; E78.5 Hyperlipidemia, unspecified; F32.9 Major depressive disorder, single episode, unspecified; G89.4 Chronic pain syndrome; Z88.2 Allergy status to sulfonamides; Z88.8 Allergy status to other drugs, medicaments and biological substances; I87.2 Venous insufficiency (chronic) (peripheral); I87.8 Other specified disorders of veins; F17.200 Nicotine dependence, unspecified, uncomplicated; Z79.82 Long term (current) use of aspirin; Z79.4 Long term (current) use of insulin; Z79.899 Other long term (current) drug therapy; K59.03 Drug induced constipation; Z96.651 Presence of right artificial knee joint; Z86.718 Personal history of other venous thrombosis and embolism; M19.90 Unspecified osteoarthritis, unspecified site
CPT/HCPCS: 36415; 70450-TC; 71045-TC; 73562; 80048-TC; 80053-TC; 80061-TC; 80076-TC; 80202-TC; 81000-TC; 82550-TC; 82570-TC; 82962-TC; 83605-TC; 83735-TC; 83970; 84100-TC; 84155; 84155-TC; 84165; 84300-TC; 84443-TC; 84484-TC; 85025-TC; 85652-TC; 85730-TC; 87040-TC; 87070-TC; 87081-TC; 87086-TC; 87186-TC; 93971-TC; 97110-TC; 97116-TC; 97530-TC; A4216; A6253; A6402; A6403; G0378; J0692; J0696; J0878; J1815; J2405; J2543; J3370; J3490; J7030; J7042; J7060; J7070

== ENCOUNTER 2022-11-19 16:39 | Inpatient (IN) | payer MEDICARE, OTHER ==
[~2022-11-19] VITALS: Ht 177.8 cm; Wt 104.3 kg
[~2022-11-19 16:39] MED LIST: ACET-73 PO; ASPI-1169 PO; CLON0.1T PO; CLON1TAB PO; DAPT500V2 IV; DIPH50CA4 PO; DOCU100C36 PO; DULO60CA45 PO; EPOE1VIA7 SQ; FERR325T23 PO; FURO80TA85 PO; GABA300C PO; GUAI100S9 PO; HYDR-3972 PO; HYDR-4077 PO; INSU100V27 SQ; INSU100V7 SQ; IPRA3AMP23 IH; METH10TA2 PO; PANT40TA49 PO; PREG200C PO; PROP40TA7 PO; Polyvinyl Alcohol EACHEYE; VIT1TABL44 PO
[2022-11-19] MEDS ORDERED: IV NS 0.9% 1,000 ML BAG IV ONE (18:00)
--- NOTE | 2022-11-19 18:00 | NUR ---
BIBA FROM SNF FOR PAIN ON URINATION. A/O X 3, ABLE TO MAKE NEEDS KNOWN. TOLERATING WELL ON ROOM AIR.
--- NOTE | 2022-11-19 18:48 | NUR ---
URINE SAMPLE OBTAINED
--- NOTE | 2022-11-19 18:49 | NUR ---
BLOOD SAMPLES OBTAINED
[2022-11-19] MEDS ORDERED: PHEN-704 PO (18:51)
[2022-11-19] MEDS ORDERED: MULT-447 PO (18:51)
[2022-11-19] MEDS ORDERED: ATOR40TA PO (18:51)
[2022-11-19] MEDS ORDERED: MELA3TAB41 PO (18:51)
[2022-11-19] MEDS ORDERED: AMIN30LI2 PO (18:51)
[2022-11-19] MEDS ORDERED: CYCL30DR EACHEYE (18:51)
[2022-11-19] MEDS ORDERED: NALO4SPR (18:51)
[2022-11-19] MEDS ORDERED: AMLO-212 PO (18:51)
[2022-11-19] MEDS ORDERED: OXCA300T15 PO (18:51)
[2022-11-19] MEDS ORDERED: OXYC10TA49 PO (18:51)
[2022-11-19] MEDS ORDERED: ONDA4TAB5 PO (18:51)
[2022-11-19] MEDS ORDERED: PSYL3.4P6 PO (18:51)
[2022-11-19] MEDS ORDERED: LORA-259 PO (18:51)
[2022-11-19] MEDS ORDERED: DICL100G26 TP (18:51)
[2022-11-19] MEDS ORDERED: TIZA4TAB5 PO (18:51)
[2022-11-19] MEDS ORDERED: ASPI-1420 PO (18:51)
[2022-11-19] MEDS ORDERED: ACET-868 PO (18:51)
[2022-11-19] MEDS ORDERED: CARV6.252 PO (18:51)
[2022-11-19] MEDS ORDERED: ASCO-495 PO (18:51)
[2022-11-19] MEDS ORDERED: TYL2T PO (18:51)
[2022-11-19] MEDS ORDERED: ERGO500040 PO (18:51)
[2022-11-19] MEDS ORDERED: GABA-532 PO (18:51)
[2022-11-19 19:12] LABS: ALBUMIN 3.1 g/dL (3.4-5.0); BILIRUBIN,DIRECT 0.1 mg/dL (0.0-0.2); BILIRUBIN,TOTAL 0.3 mg/dL (0.2-1.0); CALCIUM, SERUM 9.3 mg/dL (8.5-10.1); CREATININE 1.5 mg/dL (0.6-1.3); POTASSIUM 4.8 mmol/L (3.5-5.1); TOTAL PROTEIN, SERUM 7.7 g/dL (6.4-8.2)
[2022-11-19 19:47] LABS: BASOPHILS % (AUTO) 0.4 % (0.0-2.0); EOSINOPHILS % (AUTO) 4.2 % (0.0-6.0); HEMATOCRIT 33 % (33-45); HEMOGLOBIN 10.8 g/dL (11.5-14.8); LYMPHOCYTES # (AUTO) 0.8 K/uL (0.8-4.8); LYMPHOCYTES % (AUTO) 7.5 % (20.0-44.0); MEAN CORPUSCULAR HGB CONC 32 g/dl (31.0-36.0); MEAN CORPUSCULAR VOLUME 84 fL (82-100); MONOCYTES # (AUTO) 0.8 K/uL (0.1-1.30); MONOCYTES % (AUTO) 6.8 % (2.0-12.0); NEUTROPHILS # (AUTO) 8.9 K/uL (1.8-8.9); NEUTROPHILS % (AUTO) 81.1 % (43.0-81.0); PLATELET COUNT (AUTO) 253 K/uL (150-450); RED BLOOD CELL COUNT(AUTO) 3.97 MIL/uL (4.0-5.2)
[2022-11-19 19:49] LABS: BILIRUBIN,URINE NEGATIVE (NEGATIVE); COLOR,URINE YELLOW (YELLOW); LEUKOCYTE ESTERASE ,URINE NEGATIVE (NEGATIVE); NITRITE, URINE POSITIVE (NEGATIVE); PROTEIN,URINE 3+ mg/dl (NEGATIVE); UGLUCOSE NEGATIVE (NEGATIVE)
[2022-11-19] MEDS ORDERED: KETOROLAC TROMETHAMINE INJ 30 MG/ML VIAL IV ONE (20:00)
[2022-11-19] MEDS ORDERED: CEFTRIAXONE 1GM BAG (ER ONLY) 1 GM/50 ML PIGGYBACK IV ONE (20:00)
[2022-11-19] MEDS ORDERED: CEFTRIAXONE 1GM BAG (ER ONLY) 50 ML IV ONE (20:06)
[2022-11-19] MEDS ORDERED: KETOROLAC TROMETHAMINE INJ 30 MG/ML VIAL ONE (20:06)
[2022-11-19 20:10] LABS: BACTERIA,URINE Few /HPF (None Seen); RBC,URINE 21-50 /HPF (0-2); WBC,URINE 0-2 /HPF (0-3)
[2022-11-19 20:11] LABS: MUCUS,URINE Moderate /LPF (None Seen)
[2022-11-19] MEDS ORDERED: diphenhydrAMINE HCL 50 MG/ML VIAL IV ONE (20:30)
[2022-11-19] MEDS ORDERED: diphenhydrAMINE HCL 50 MG/ML VIAL ONE (20:34)
[2022-11-19] MEDS ORDERED: NALOXONE HCL 4 MG SPRAY NS PRN (22:00)
--- NOTE | 2022-11-19 22:03 | NUR ---
VERBAL ORDER OF NORCO 5-325MG FROM [place]
[2022-11-19] MEDS ORDERED: HYDROCODONE/APAP 5/325MG TABLET ONE (22:06)
[2022-11-19] MEDS ORDERED: MAG HYDROX/AL HYDROX/SIMETH 30 ML UDC PO PRN (22:30)
[2022-11-19] MEDS ORDERED: MAGNESIUM HYDROXIDE 30 ML UDC PO PRN (22:30)
[2022-11-19] MEDS ORDERED: HYDROCODONE/APAP 5/325MG TABLET PO ONE (22:30)
[2022-11-19] MEDS ORDERED: Z GUARD REMEDY 4 OZ OINT TP PRN (22:30)
[2022-11-19] MEDS ORDERED: ONDANSETRON HCL/PF 4 MG/2 ML VIAL IVP PRN (22:30)
[2022-11-19] MEDS ORDERED: DEXTROSE 50%-WATER 50 ML DISP.SYRIN IV PRN (22:30)
[2022-11-19] MEDS ORDERED: ZOLPIDEM TARTRATE 5 MG TABLET PO PRN (22:30)
--- NOTE | 2022-11-19 22:35 | NUR ---
REPORT GIVEN TO NABIL TIPTON FOR EARLE. AWAITING TRANSPORT
[2022-11-19 23:20] VITALS: BP 160/88
--- NOTE | 2022-11-19 23:20 | NUR ---
MS RN ADMITTING NOTES PT ARRIVED TO UNIT VIA GURNEY ASSISTED BY ER STAFF, ABLE TO SCOOT TO ROOM BED. A/O X4, ABLE TO MAKE NEEDS KNOWN, ANXIOUS, SPASTIC. V/S: 98.3 F, 78 HR, 20 RR, 160/88 BP, 96% O2, 113 BLOOD SUGAR, 230 LB. ON RA WITH NO RESPIRATORY DISTRESS NOTED. DENIES SOB OR CHEST PAIN. C/O PAIN IN GENITAL AREA. EXPLAINED TO PT THAT NORCO WAS JUST GIVEN IN ER AND ANOTHER PAIN MED CANT BE GIVEN AT THIS TIME. PT VISIBLY UPSET STATING "I WISH I HADNT TAKEN IT EARLIER". IV ACCESS LAC #20G, PATENT, INTACT, FLUSHING WELL, STARTED ON NS @ 75 ML/HR ORDERED. PT VOIDED DURING ADMISSION PROCESS. SKIN ASSESSMENT PERFORMED, ISSUES NOTED: SCRATCHES/SCABS ON FOREHEAD, R HAND, L KNEE, L FOOT, R FOOT, R POSTERIOR LEG; SACRAL REDNESS; R UPPER LEG TISSUE LOSS COVERED WITH DRESSING. BELONGINGS DOCUMENTED AND PLACED IN CHART. PT ORIENTED TO UNIT AND HOW TO USE CALL LIGHT. GIVEN WATER AND APPROPRIATE FOOD PER DIET. MADE COMFORTABLE. SAFETY PRECAUTIONS PUT IN PLACE: BED LOCKED AND IN LOW POSITION, SIDE RAILS UP X2, BED ALARM ON, CALL LIGHT AND TRAY TABLE WITHIN REACH. WILL CONTINUE TO MONITOR AND ASSIST.
[2022-11-19] MEDS ORDERED: MELATONIN 3 MG TABLET PO PRN (23:30)
[2022-11-19] MEDS ORDERED: ERGOCALCIFEROL (VITAMIN D 2) 50,000 UNIT CAPSULE PO SCH (23:30)
[2022-11-19] MEDS ORDERED: ONDANSETRON 4 MG TAB.RAPDIS PO PRN (23:30)
[2022-11-19] MEDS ORDERED: PSYLLIUM SEED 1 PKT PACKET PO PRN (23:30)
[2022-11-19] MEDS: LORAZEPAM 0.5 MG TABLET PO PRN (23:57)
[2022-11-20] MEDS: TIZANIDINE HCL 4 MG TABLET PO PRN ×3 (00:35→21:40)
[2022-11-20] MEDS: ATORVASTATIN 40 MG TABLET PO SCH ×2 (00:35→21:08)
[2022-11-20 01:30] VITALS: BP 110/65
[2022-11-20] MEDS: IV NS 0.9% 1,000 ML IV PRN (02:36)
[2022-11-20] MEDS: oxyCODONE IR immediate release 5 MG PO PRN ×4 (03:59→23:08)
[2022-11-20 05:53] LABS: BASOPHILS % (AUTO) 0.4 % (0.0-2.0); EOSINOPHILS % (AUTO) 4.1 % (0.0-6.0); HEMATOCRIT 30 % (33-45); HEMOGLOBIN 9.6 g/dL (11.5-14.8); LYMPHOCYTES % (AUTO) 13.3 % (20.0-44.0); MEAN CORPUSCULAR HGB CONC 33 g/dl (31.0-36.0); MEAN CORPUSCULAR VOLUME 84 fL (82-100); MONOCYTES # (AUTO) 0.6 K/uL (0.1-1.30); MONOCYTES % (AUTO) 7.7 % (2.0-12.0); NEUTROPHILS # (AUTO) 5.8 K/uL (1.8-8.9); NEUTROPHILS % (AUTO) 74.5 % (43.0-81.0); PLATELET COUNT (AUTO) 184 K/uL (150-450); RED BLOOD CELL COUNT(AUTO) 3.52 MIL/uL (4.0-5.2); WHITE BLOOD COUNT (AUTO) 7.8 K/uL (4.3-11.0)
[2022-11-20 06:19] LABS: CALCIUM, SERUM 8.5 mg/dL (8.5-10.1); CREATININE 1.4 mg/dL (0.6-1.3); MAGNESIUM 2.1 mg/dL (1.8-2.4); PHOSPHORUS 4.2 mg/dL (2.5-4.9); POTASSIUM 4.2 mmol/L (3.5-5.1)
--- NOTE | 2022-11-20 06:40 | NUR ---
RN NOTE PT REFUSING TO BE CHANGED AND DRESSING TO BE REPLACED AT THIS TIME. WILL ENDORSE. Addendum: 11/20/22 at 0651 by NABIL GREEN RN PT STATES SHE JUST WANTS TO SLEEP FOR NOW.
[2022-11-20] MEDS: BLOOD SUGAR DIAGNOSTIC 1 EACH STRIP IN SCH ×4 (06:47→21:44)
[2022-11-20] MEDS: INSULIN REGULAR, HUMAN 100 UNIT/ML 3 ML VIAL SQ PRN ×4 (06:47→21:42)
--- NOTE | 2022-11-20 07:25 | NUR ---
MS RN CLOSING NOTES PT IN BED SLEEPING AT THIS TIME. A/O X4, ABLE TO MAKE NEEDS KNOWN, ANXIOUS, SPASTIC. STABLE ON RA WITH NO RESPIRATORY DISTRESS NOTED. DENIES SOB OR CHEST PAIN. C/O PAIN IN R LEGS, MUSCLE SPASMS, ANXIETY. IV ACCESS LAC #20G, PATENT, INTACT, FLUSHING WELL, RUNNING ON NS @ 75 ML/HR ORDERED. ALL CARE PROVIDED AND MEDS TOLERATED WELL. SAFETY PRECAUTIONS MAINTAINED: BED LOCKED AND IN LOW POSITION, SIDE RAILS UP X2, BED ALARM ON, CALL LIGHT AND TRAY TABLE WITHIN REACH. WILL ENDORSE EARLE TO DAY SHIFT NURSE.
--- NOTE | 2022-11-20 07:25 | NUR ---
MS RN OPENING NOTES RECEIVED PT IN BED, AWAKE. A/O X 4, ABLE TO MAKE NEEDS KNOWN. NO C/O PAIN/DISCOMFORT AT THIS TIME. ON ROOM AIR, TOLERATING WELL. IV ACCESS ON LAC #20G WITH ONGOING NS @ 75 ML/HR, INFUSING WELL. SAFETY PRECAUTIONS MAINTAINED: BED LOCKED AND IN LOWEST POSITION, SIDE RAILS UP X2, BED ALARM ON, CALL LIGHT AND TRAY TABLE WITHIN REACH. WILL CONTINUE TO MONITOR.
[2022-11-20 08:00] VITALS: BP 136/75
[2022-11-20] MEDS: PHENAZOPYRIDINE HCL 200 MG TABLET PO SCH ×3 (08:27→16:47)
[2022-11-20] MEDS: METHADONE HCL 10 MG TABLET PO SCH ×2 (08:27→20:09)
[2022-11-20] MEDS: FERROUS SULFATE (325 MG) 325 MG/TAB TABLET PO SCH ×2 (08:28→08:35)
[2022-11-20] MEDS: CARVEDILOL 6.25 MG TABLET PO SCH (08:28)
[2022-11-20] MEDS: MULTIVITAMINS,THERAGRAN 1 UDTAB TABLET PO SCH ×2 (08:28→08:35)
[2022-11-20] MEDS: ASCORBIC ACID 500 MG TABLET PO SCH (08:28)
[2022-11-20] MEDS: DOCUSATE SODIUM 100 MG CAPSULE PO SCH ×2 (08:28→16:47)
[2022-11-20] MEDS: ASPIRIN EC 81 MG TABLET.DR PO SCH (08:28)
[2022-11-20] MEDS: GABAPENTIN 300 MG CAPSULE PO SCH ×3 (08:28→16:47)
[2022-11-20] MEDS: AMLODIPINE BESYLATE 5 MG TABLET PO SCH (08:29)
[2022-11-20] MEDS: DULOXETINE HCL 30 MG CAPSULE.DR PO SCH (08:29)
[2022-11-20] MEDS: OXCARBAZEPINE 150 MG TABLET PO SCH ×2 (08:29→20:10)
[2022-11-20] MEDS: PROSOURCE / PROSTAT (PYXIS) 30 ML UDC PO SCH (08:30)
[2022-11-20] MEDS ORDERED: Medication Not On Formulary EA (Cyclosporine (Restasis) 1 DROP) EACHEYE SCH (09:00)
[2022-11-20] MEDS: LORAZEPAM 0.5 MG TABLET PO PRN (09:22)
--- NOTE | 2022-11-20 09:25 | NUR ---
RN NOTES PATIENT IS CRYING AND VERBALIZED SHE WANTS HER ATIVAN, ATIVAN 0.5MG PO PRN GIVEN AT 0922. WILL CONTINUE TO MONITOR.
--- NOTE | 2022-11-20 10:48 | NUR ---
RN NOTES PT VERBALIZED SHE HAS GENERALIZED BODY PAIN WITH SCALE OF 10/10, OXY IR 10MG PO PRN GIVEN AT 1045, WILL CONTINUE TO MONITOR.
[2022-11-20 16:08] VITALS: BP 131/73
[2022-11-20] MEDS ORDERED: IV NS 0.9% 500 ML IV ONE (18:30)
--- NOTE | 2022-11-20 19:12 | NUR ---
MS DANUTA OPENING NOTES PT RESTING IN BED. A/O X 4, ABLE TO MAKE NEEDS KNOWN. NO C/O PAIN/DISCOMFORT AT THIS TIME. ON ROOM AIR, TOLERATING WELL. IV ACCESS ON LAC #20G WITH ONGOING NS @ 75 ML/HR, INFUSING WELL. NEEDS ATTENDED. SAFETY PRECAUTIONS MAINTAINED: BED LOCKED AND IN LOWEST POSITION, SIDE RAILS UP X2, BED ALARM ON, CALL LIGHT AND TRAY TABLE WITHIN REACH. WILL ENDORSE EARLE TO HOME THEATER EXPERT. Addendum: 11/20/22 at 1920 by Olive Roman RN ERROR PLS DISREGARD
--- NOTE | 2022-11-20 19:20 | NUR ---
MS RN CLOSING NOTES PT RESTING IN BED. A/O X 4, ABLE TO MAKE NEEDS KNOWN. NO C/O PAIN/DISCOMFORT AT THIS TIME. ON ROOM AIR, TOLERATING WELL. IV ACCESS ON LAC #20G WITH ONGOING NS @ 75 ML/HR, INFUSING WELL. NEEDS ATTENDED. SAFETY PRECAUTIONS MAINTAINED: BED LOCKED AND IN LOWEST POSITION, SIDE RAILS UP X2, BED ALARM ON, CALL LIGHT AND TRAY TABLE WITHIN REACH. WILL ENDORSE EARLE TO COIN MACHINE OPERATOR.
--- NOTE | 2022-11-20 19:22 | NUR ---
MS RN OPENING NOTES; RECEIVED PT IN BED AWAKED A/O X 4, ABLE TO MAKE NEEDS KNOWN.ON ROOM AIR TOLERATING WELL SAT 98% NO SOB/DISTRESS NOTED,IV ACCESS ON LAC #20G WITH ONGOING NS @ 75 ML/HR, INFUSING WELL.SAFETY PRECAUTIONS MAINTAINED: BED LOCKED AND IN LOWEST POSITION, SIDE RAILS UP X2, BED ALARM ON, CALL LIGHT AND TRAY TABLE WITHIN REACH. WILL CONTINUE TO MONITOR.
[2022-11-20] MEDS: CEFTRIAXONE 1 G in IV D5W 50 ML IV SCH (19:51)
[2022-11-20 20:00] VITALS: BP 145/70
[2022-11-20] MEDS: ENOXAPARIN SODIUM 30 MG/0.3 ML DISP.SYRIN SQ SCH (21:12)
--- NOTE | 2022-11-20 23:11 | NUR ---
RN NOTES; PATIENT COMPLAINED OF GEN,BODY PAIN 9/,PRN OXYCODONE 10MG WAS GIVEN,NO A/R NOTED.
[2022-11-21] MEDS: ACETAMINOPHEN 325 MG TABLET PO PRN ×2 (02:37→22:38)
[2022-11-21] MEDS: LORAZEPAM 0.5 MG TABLET PO PRN (02:37)
[2022-11-21] MEDS: oxyCODONE IR immediate release 5 MG PO PRN (05:52)
--- NOTE | 2022-11-21 05:54 | NUR ---
RN NOTES; PATIENT COMPLAINED OF GEN,BODY PAIN 9/,PRN OXYCODONE 10MG WAS GIVEN,NO A/R NOTED.
--- NOTE | 2022-11-21 06:19 | NUR ---
MS RN CLOSING NOTES; PATIENT IN BED AWAKED A/O X 4, ABLE TO MAKE NEEDS KNOWN.ON ROOM AIR TOLERATING WELL SAT 97% NO SOB/DISTRESS NOTED,IV ACCESS ON LAC #20G WITH ONGOING NS @ 75 ML/HR, INFUSING WELL.DUE MEDS GIVEN ORDER,ALL NEEDS ATTENDED,PT WAS ASKING PAIN MEDS ROUTINELY,SAFETY PRECAUTIONS MAINTAINED: BED LOCKED AND IN LOWEST POSITION, SIDE RAILS UP X2, BED ALARM ON, CALL LIGHT AND TRAY TABLE WITHIN REACH. WILL ENDORSED TO NEXT SHIFT.
[2022-11-21] MEDS: INSULIN REGULAR, HUMAN 100 UNIT/ML 3 ML VIAL SQ PRN ×4 (06:33→21:07)
[2022-11-21 06:35] LABS: BASOPHILS % (AUTO) 0.3 % (0.0-2.0); EOSINOPHILS % (AUTO) 3.8 % (0.0-6.0); HEMATOCRIT 33 % (33-45); HEMOGLOBIN 10.5 g/dL (11.5-14.8); LYMPHOCYTES # (AUTO) 1.1 K/uL (0.8-4.8); LYMPHOCYTES % (AUTO) 12.2 % (20.0-44.0); MEAN CORPUSCULAR HGB CONC 32 g/dl (31.0-36.0); MEAN CORPUSCULAR VOLUME 85 fL (82-100); MONOCYTES # (AUTO) 0.7 K/uL (0.1-1.30); MONOCYTES % (AUTO) 7.7 % (2.0-12.0); NEUTROPHILS # (AUTO) 6.7 K/uL (1.8-8.9); PLATELET COUNT (AUTO) 196 K/uL (150-450); RED BLOOD CELL COUNT(AUTO) 3.85 MIL/uL (4.0-5.2); WHITE BLOOD COUNT (AUTO) 8.9 K/uL (4.3-11.0)
[2022-11-21] MEDS: IV NS 0.9% 1,000 ML IV PRN (06:36)
[2022-11-21] MEDS: BLOOD SUGAR DIAGNOSTIC 1 EACH STRIP IN SCH ×4 (06:43→21:10)
[2022-11-21 07:14] LABS: CALCIUM, SERUM 8.8 mg/dL (8.5-10.1); CREATININE 1.3 mg/dL (0.6-1.3); POTASSIUM 4.4 mmol/L (3.5-5.1)
--- NOTE | 2022-11-21 07:30 | NUR ---
MS RN OPENING NOTES RECEIVED PT IN BED, AWAKE. A/O X 4, ABLE TO MAKE NEEDS KNOWN. ON ROOM AIR, TOLERATING WELL. IV ACCESS ON LAC #20G WITH ONGOING NS @ 75 ML/HR, INFUSING WELL. NEEDS ATTENDED. SAFETY PRECAUTIONS MAINTAINED: BED LOCKED AND IN LOWEST POSITION, SIDE RAILS UP X2, BED ALARM ON, CALL LIGHT AND TRAY TABLE WITHIN REACH. WILL CONTINUE TO MONITOR.
[2022-11-21] MEDS: METHADONE HCL 10 MG TABLET PO SCH ×2 (08:38→20:40)
[2022-11-21] MEDS: DOCUSATE SODIUM 100 MG CAPSULE PO SCH ×3 (08:40→17:04)
[2022-11-21] MEDS: DULOXETINE HCL 30 MG CAPSULE.DR PO SCH (08:40)
[2022-11-21] MEDS: GABAPENTIN 300 MG CAPSULE PO SCH ×3 (08:42→17:04)
[2022-11-21] MEDS: PHENAZOPYRIDINE HCL 200 MG TABLET PO SCH ×3 (08:42→17:04)
[2022-11-21] MEDS: ASPIRIN EC 81 MG TABLET.DR PO SCH (08:43)
[2022-11-21] MEDS: OXCARBAZEPINE 150 MG TABLET PO SCH ×2 (08:43→20:29)
[2022-11-21] MEDS: CARVEDILOL 6.25 MG TABLET PO SCH (08:49)
[2022-11-21] MEDS: AMLODIPINE BESYLATE 5 MG TABLET PO SCH (08:50)
[2022-11-21] MEDS: PROSOURCE / PROSTAT (PYXIS) 30 ML UDC PO SCH (08:57)
[2022-11-21] MEDS: FERROUS SULFATE (325 MG) 325 MG/TAB TABLET PO SCH (08:57)
[2022-11-21] MEDS: MULTIVITAMINS,THERAGRAN 1 UDTAB TABLET PO SCH (08:57)
[2022-11-21] MEDS: ASCORBIC ACID 500 MG TABLET PO SCH (08:58)
[2022-11-21 09:32] VITALS: BP 163/84
[2022-11-21] MEDS: HYDROMORPHONE 1 MG/1 ML DISP.SYRIN IV PRN ×3 (10:16→20:29)
--- NOTE | 2022-11-21 10:18 | NUR ---
RN NOTES PATIENT VERBALIZED THAT HER BOTH LEGS ARE PAINFUL WITH THE SCALE OF 9-10/10 AND WANTS DILAUDID, DILAUDID 1MG/ML IV PRN GIVEN AT 1016. WILL CONTINUE TO MONITOR.
[2022-11-21] MEDS: TIZANIDINE HCL 4 MG TABLET PO PRN (13:37)
--- NOTE | 2022-11-21 13:40 | NUR ---
RN NOTES PATIENT VERBALIZED THAT SHE WANTS HER MUSCLE RELAXANT FOR HER LEGS, TIZANIDINE HCL 4MG PO PRN GIVEN AT 1337, WILL CONTINUE TO MONITOR.
--- NOTE | 2022-11-21 15:05 | NUR ---
RN NOTES PATIENT VERBALIZED THAT SHE IS IN PAIN WITH SCALE OF 9-10/10 AND WANTS DILAUDID, DILAUDID 1MG/ML IV PRN GIVEN AT 1503 AND ENCOURAGED DEEP BREATHING EXERCISE, WILL CONTINUE TO MONITOR.
[2022-11-21 16:27] VITALS: BP 111/68
--- NOTE | 2022-11-21 18:52 | NUR ---
MS RN CLOSING NOTES PT RESTING IN BED, AWAKE. A/O X 4, ABLE TO MAKE NEEDS KNOWN. ON ROOM AIR, TOLERATING WELL. IV ACCESS ON LAC #20G WITH ONGOING NS @ 75 ML/HR, INFUSING WELL. NEEDS ATTENDED. SAFETY PRECAUTIONS MAINTAINED: BED LOCKED AND IN LOWEST POSITION, SIDE RAILS UP X2, BED ALARM ON, CALL LIGHT AND TRAY TABLE WITHIN REACH. WILL ENDORSE EARLE TO ANALYSIS ENGINEER.
--- NOTE | 2022-11-21 19:11 | NUR ---
MS RN OPENING NOTES; RECEIVED PT IN BED AWAKED A/O X 4, ABLE TO MAKE NEEDS KNOWN.ON ROOM AIR TOLERATING WELL SAT 97% NO SOB/DISTRESS NOTED,IV ACCESS ON LAC #20G WITH ONGOING NS @ 75 ML/HR, INFUSING WELL.SAFETY PRECAUTIONS MAINTAINED: BED LOCKED AND IN LOWEST POSITION, SIDE RAILS UP X2, BED ALARM ON, CALL LIGHT AND TRAY TABLE WITHIN REACH. WILL CONTINUE TO MONITOR.
[2022-11-21 20:00] VITALS: BP 159/83
[2022-11-21] MEDS: CEFTRIAXONE 1 G in IV D5W 50 ML IV SCH (20:15)
--- NOTE | 2022-11-21 20:41 | NUR ---
RN NOTES; PATIENT COMPLAINED OF GEN BODY PAIN 05/24.PRN DILAUDID 1MG/ML WAS GIVEN,PT REFUSED SCHEDULE MEDS METHADONE 10MG.
[2022-11-21] MEDS: ATORVASTATIN 40 MG TABLET PO SCH (21:02)
[2022-11-21] MEDS: ENOXAPARIN SODIUM 30 MG/0.3 ML DISP.SYRIN SQ SCH (21:03)
[2022-11-22] MEDS: HYDROMORPHONE 1 MG/1 ML DISP.SYRIN IV PRN ×6 (00:51→22:01)
--- NOTE | 2022-11-22 00:53 | NUR ---
RN NOTES; PATIENT COMPLAINED OF GEN BODY PAIN 10/10,PRN DILAUDID 1MG/ML WAS GIVEN,NO A/R NOTED.
--- NOTE | 2022-11-22 05:40 | NUR ---
RN NOTES; PATIENT COMPLAINED OF GEN BODY PAIN 10/10,PRN DILAUDID 1MG/ML WAS GIVEN,NO A/R NOTED.
--- NOTE | 2022-11-22 06:11 | NUR ---
MS RN CLOSING NOTES; PATIENT IN BED AWAKED A/O X 4, ABLE TO MAKE NEEDS KNOWN.ON ROOM AIR TOLERATING WELL SAT 98.2% NO SOB/DISTRESS NOTED,IV ACCESS ON LAC #20G WITH ONGOING NS @ 75 ML/HR, INFUSING WELL.DUE MEDS GIVEN ORDER,ALL NEEDS ATTENDED,PT WAS ASKING PAIN MEDS ROUTINELY,SAFETY PRECAUTIONS MAINTAINED: BED LOCKED AND IN LOWEST POSITION, SIDE RAILS UP X2, BED ALARM ON, CALL LIGHT AND TRAY TABLE WITHIN REACH. WILL ENDORSED TO NEXT SHIFT.
[2022-11-22] MEDS: INSULIN REGULAR, HUMAN 100 UNIT/ML 3 ML VIAL SQ PRN ×4 (06:36→21:56)
[2022-11-22] MEDS: BLOOD SUGAR DIAGNOSTIC 1 EACH STRIP IN SCH ×4 (06:36→21:55)
[2022-11-22 07:00] VITALS: BP 166/83
--- NOTE | 2022-11-22 07:45 | NUR ---
MS RN OPENING NOTES; RECEIVED PATIENT IN BED ASLEEP, EASILY ROUSED, A/O X 4, ABLE TO MAKE NEEDS KNOWN.ON ROOM WITH NO S/S OF SOB/DISTRESS NOTED. PT C/O OF GENERAL PAIN 10/22 AT THIS TIME, WILL MEDICATE ORDERED. IV ACCESS ON LAC #20G WITH ONGOING NS @ 75 ML/HR, INFUSING WELL. TABLE AND CALL LIGHTY WITHIN EASY REACH, WILL CONT WITH PLAN OF CARE DURING SHIFT.
[2022-11-22] MEDS: ACETAMINOPHEN 325 MG TABLET PO PRN (07:48)
--- NOTE | 2022-11-22 07:55 | NUR ---
RN NOTES: PT GIVEN TYLENOL PER PT REQUEST FOR GENERALIZED PAIN 10/22
[2022-11-22] MEDS: AMLODIPINE BESYLATE 5 MG TABLET PO SCH (08:39)
[2022-11-22] MEDS: PHENAZOPYRIDINE HCL 200 MG TABLET PO SCH ×3 (08:39→16:38)
[2022-11-22] MEDS: OXCARBAZEPINE 150 MG TABLET PO SCH ×2 (08:48→20:07)
[2022-11-22] MEDS: ASPIRIN EC 81 MG TABLET.DR PO SCH (08:48)
[2022-11-22] MEDS: DOCUSATE SODIUM 100 MG CAPSULE PO SCH ×3 (08:48→16:37)
[2022-11-22] MEDS: MULTIVITAMINS,THERAGRAN 1 UDTAB TABLET PO SCH (08:49)
[2022-11-22] MEDS: FERROUS SULFATE (325 MG) 325 MG/TAB TABLET PO SCH (08:49)
[2022-11-22] MEDS: CARVEDILOL 6.25 MG TABLET PO SCH (08:49)
[2022-11-22] MEDS: DULOXETINE HCL 30 MG CAPSULE.DR PO SCH (08:49)
[2022-11-22] MEDS: ASCORBIC ACID 500 MG TABLET PO SCH (08:50)
[2022-11-22] MEDS: GABAPENTIN 300 MG CAPSULE PO SCH ×3 (08:51→16:38)
[2022-11-22] MEDS: METHADONE HCL 10 MG TABLET PO SCH ×2 (08:51→20:08)
[2022-11-22] MEDS: PROSOURCE / PROSTAT (PYXIS) 30 ML UDC PO SCH (09:00)
--- NOTE | 2022-11-22 09:05 | NUR ---
RN NOTES; PT REFUSED PROSTAT AND DOCUSATE, RN EXPLAINED RATIONALE OF PRESCRIBED MEDS, PT STATES " I DON'T NEED THAT" AND STILL REFUSED. RN RETURNED/DISCARDED MEDS PER UNIT PROTOCOL
--- NOTE | 2022-11-22 09:35 | NUR ---
RN NOTES: PT REFUSED BLOOD CX LAB, RN AND LAB STAFF EXPLAINED IMPORTANCE OF LABS, PT ACKNOWLEDGED BUT STILL REFUSED, MADE MD AWARE.
--- NOTE | 2022-11-22 10:45 | NUR ---
WOUND CARE CONSULT: PT PRESENTS WITH SACRAL SCARRING, AREAS OF SCARRING AND DISCOLORATION TO LOWER EXTREMITIES AND OPEN WOUNDS BELOW RT KNEE WITH PURULENT DRAINAGE, ALL PRESENT ON ADMISSION. DR MONTGOMERY CALLED FOR SURGICAL CONSULT. DISCUSSED SKIN PROTECTION WITH NURSING STAFF. MD IN AGREEMENT WITH PLAN OF CARE.
[2022-11-22 16:00] VITALS: BP 136/75
[2022-11-22] MEDS: LORAZEPAM 0.5 MG TABLET PO PRN (16:56)
--- NOTE | 2022-11-22 17:02 | NUR ---
RN NOTES: PT ASKED FOR ATIVAN, WILL MEDICATE ORDERED.
[2022-11-22] MEDS ORDERED: POLYVINYL ALCOHOL 15 ML BOTTLE EACHEYE PRN (17:30)
[2022-11-22] MEDS: IV NS 0.9% 1,000 ML IV PRN (18:08)
--- NOTE | 2022-11-22 18:23 | NUR ---
PHYSICAL SECURITY MANAGER CLOSING NOTE PATIENT IN BED AWAKE A/O X 4, ABLE TO MAKE NEEDS KNOWN.ON ROOM AIR NO S/S OF RESPIRATORY DISTRESS NOTED. IV ACCESS ON LAC #20G IVF INFUSING NS AT 75ML/HR. DUE MEDS GIVEN ORDER,ALL NEEDS ATTENDED, PAIN MANAGEMENT TEACHING IN PROGRESS, PATIENT VERBALIZED UNDERSTANDING, WOUND CARE DONE BY MARKET EDITOR. KEPT PATIENT CLEAN, DRY AND COMFORTABLE. SAFETY PRECAUTIONS MAINTAINED: BED LOCKED AND IN LOWEST POSITION, SIDE RAILS UP X2, BED ALARM ON, CALL LIGHT AND TRAY TABLE WITHIN REACH. WILL ENDORSE TO NEXT SHIFT.
--- NOTE | 2022-11-22 19:30 | NUR ---
MS RN OPENING NOTE RECEIVED PT AWAKE IN BED. A/O X4 AND ABLE TO MAKE NEEDS KNOWN. PT STABLE ON ROOM AIR. NO SOB OR S/S OF RESPIRATORY DISTRESS. BREATHING EVEN AND UNLABORED. IV ACCESS LAC 20G, INTACT AND PATENT, RUNNING NS @ 75 ML/HR. SAFETY PRECAUTIONS IN PLACE. BED IN LOWEST LOCKED POSITION, HOB ELEVATED, SIDE RAILS UP X3, AND CALL LIGHT AND TABLE WITHIN REACH. ALL NEEDS MET AT THIS TIME.
[2022-11-22 20:00] VITALS: BP 145/89
[2022-11-22] MEDS: CEFTRIAXONE 1 G in IV D5W 50 ML IV SCH (20:07)
[2022-11-22] MEDS: ENOXAPARIN SODIUM 30 MG/0.3 ML DISP.SYRIN SQ SCH (20:09)
[2022-11-22] MEDS: ATORVASTATIN 40 MG TABLET PO SCH (22:01)
--- NOTE | 2022-11-22 22:01 | NUR ---
RN NOTE PT COMPLAINED OF PAIN 9/10 OF R LEG/FOOT. ADMINISTERED DILAUDID 1 MG FOR SEVERE PAIN ORDERED. ICE PACK PROVIDED REQUESTED. MADE COMFORTABLE IN BED. WARM BLANKET PROVIDED. ALL NEEDS MET AT THIS TIME.
--- NOTE | 2022-11-22 23:22 | NUR ---
RN NOTE PT STATED SHE HAS NOT GOTTEN A GOD N[employer] SLEEP SINCE ADMISSION AND WOULD LIKE SOMETHING FOR SLEEP. ADMINISTERED AMBIEN 5 MG FOR INSOMNIA ORDERED. MADE COMFORTABLE IN BED. ALL NEEDS MET AT THIS TIME.
[2022-11-23] MEDS: BLOOD SUGAR DIAGNOSTIC 1 EACH STRIP IN SCH ×2 (06:31→12:36)
[2022-11-23] MEDS: INSULIN REGULAR, HUMAN 100 UNIT/ML 3 ML VIAL SQ PRN ×2 (06:34→12:47)
--- NOTE | 2022-11-23 06:41 | NUR ---
MS RN CLOSING NOTE PT RESTING IN BED, VERBALLY RESPONSIVE. A/O X4 AND ABLE TO MAKE NEEDS KNOWN. PT STABLE ON ROOM AIR. NO SOB OR S/S OF RESPIRATORY DISTRESS. BREATHING EVEN AND UNLABORED. IV ACCESS LAC 20G, INTACT AND PATENT, RUNNING NS @ 75 ML/HR. WITH [place], DRAINED 700 CC THIS SHIFT. KEPT CLEAN AND DRY. NO COMPLAINTS OF PAIN OR DISCOMFORT AT THIS TIME. SAFETY PRECAUTIONS IN PLACE AT ALL TIMES. BED IN LOWEST LOCKED POSITION, HOB ELEVATED, SIDE RAILS UP X3, AND CALL LIGHT AND TABLE WITHIN REACH. ALL NEEDS MET AT THIS TIME AND WILL ENDORSE TO ONCOMING NURSE FOR EARLE.
[2022-11-23 07:00] VITALS: BP 150/83
--- NOTE | 2022-11-23 07:40 | NUR ---
MS RN OPENING NOTE PT RESTING IN BED, VERBALLY RESPONSIVE. A/O X4 AND ABLE TO MAKE NEEDS KNOWN. PT STABLE ON ROOM AIR. NO SOB OR S/S OF RESPIRATORY DISTRESS. BREATHING EVEN AND UNLABORED. IV ACCESS LAC 20G, INTACT AND PATENT, RUNNING NS @ 75 ML/HR. SAFETY PRECAUTIONS IN PLACE AT ALL TIMES. BED IN LOWEST LOCKED POSITION, HOB ELEVATED, SIDE RAILS UP X3, AND CALL LIGHT AND TABLE WITHIN REACH. WILL CONTINUE TO MONITOR.
[2022-11-23] MEDS: ASCORBIC ACID 500 MG TABLET PO SCH (09:34)
[2022-11-23] MEDS: PHENAZOPYRIDINE HCL 200 MG TABLET PO SCH ×2 (09:34→12:37)
[2022-11-23] MEDS: FERROUS SULFATE (325 MG) 325 MG/TAB TABLET PO SCH (09:34)
[2022-11-23] MEDS: GABAPENTIN 300 MG CAPSULE PO SCH ×2 (09:34→12:37)
[2022-11-23] MEDS: DOCUSATE SODIUM 100 MG CAPSULE PO SCH (09:34)
[2022-11-23] MEDS: OXCARBAZEPINE 150 MG TABLET PO SCH (09:34)
[2022-11-23] MEDS: DULOXETINE HCL 30 MG CAPSULE.DR PO SCH (09:34)
[2022-11-23] MEDS: MULTIVITAMINS,THERAGRAN 1 UDTAB TABLET PO SCH (09:35)
[2022-11-23] MEDS: CARVEDILOL 6.25 MG TABLET PO SCH (09:35)
[2022-11-23] MEDS: METHADONE HCL 10 MG TABLET PO SCH (09:35)
[2022-11-23 09:36] VITALS: BP 150/83
[2022-11-23] MEDS: AMLODIPINE BESYLATE 5 MG TABLET PO SCH (09:36)
[2022-11-23] MEDS: PROSOURCE / PROSTAT (PYXIS) 30 ML UDC PO SCH (09:36)
[2022-11-23] MEDS: ASPIRIN EC 81 MG TABLET.DR PO SCH (09:40)
[2022-11-23] MEDS ORDERED: CEFT1FRO2 IV (09:52)
[2022-11-23 10:45] LABS: CALCIUM, SERUM 8.8 mg/dL (8.5-10.1); CREATININE 1.1 mg/dL (0.6-1.3); POTASSIUM 4.3 mmol/L (3.5-5.1)
[2022-11-23 11:13] LABS: BASOPHILS % (AUTO) 0.5 % (0.0-2.0); EOSINOPHILS % (AUTO) 3.7 % (0.0-6.0); HEMATOCRIT 36 % (33-45); HEMOGLOBIN 11.4 g/dL (11.5-14.8); LYMPHOCYTES # (AUTO) 0.8 K/uL (0.8-4.8); LYMPHOCYTES % (AUTO) 8.9 % (20.0-44.0); MEAN CORPUSCULAR HGB CONC 32 g/dl (31.0-36.0); MEAN CORPUSCULAR VOLUME 85 fL (82-100); MONOCYTES # (AUTO) 0.7 K/uL (0.1-1.30); MONOCYTES % (AUTO) 7.8 % (2.0-12.0); NEUTROPHILS # (AUTO) 7.2 K/uL (1.8-8.9); NEUTROPHILS % (AUTO) 79.1 % (43.0-81.0); PLATELET COUNT (AUTO) 197 K/uL (150-450); WHITE BLOOD COUNT (AUTO) 9.1 K/uL (4.3-11.0)
[2022-11-23] MEDS: HYDROMORPHONE 1 MG/1 ML DISP.SYRIN IV PRN (12:37)
--- NOTE | 2022-11-23 14:30 | NUR ---
DISCHARGED NOTE DISCHARGED PATIENT TO [facility] IN STABLE CONDITION. A/OX4. NO RESPIRATORY OR CARDIAC DISTRESS NOTED. PATIENT DENIES PAIN OR DISCOMFORT AT TIME OF DC. ALL BELONGINGS ACCOUNTED TO PATIENT. DISCHARGED INSTRUCTION RELAYED TO STAFF OF THE [facility]. IV ACCESS REMOVED, NO BLEEDING OR SWELLING NOTED. PATIENT LEFT THE UNIT VIA GURNEY ACCOMPANIED BY AMBULANCE STAFF. DISCHARGED.
== END 2022-11-23 15:00 | DRG 689 ==
LOC: ER 16:52 → TELE 22:52 → MED 23:14
PROVIDERS: ADMIT Nurse Practitioner Acute Care; ATTEND Internal Medicine
DX: N39.0 Urinary tract infection, site not specified (principal); N17.0 Acute kidney failure with tubular necrosis; E44.1 Mild protein-calorie malnutrition; D68.59 Other primary thrombophilia; I13.0 Hypertensive heart and chronic kidney disease with heart failure and stage 1 through stage 4 chronic kidney disease, or unspecified chronic kidney disease; B96.4 Proteus (mirabilis) (morganii) as the cause of diseases classified elsewhere; J44.9 Chronic obstructive pulmonary disease, unspecified; G89.4 Chronic pain syndrome; E11.42 Type 2 diabetes mellitus with diabetic polyneuropathy; E11.22 Type 2 diabetes mellitus with diabetic chronic kidney disease; E78.5 Hyperlipidemia, unspecified; E88.09 Other disorders of plasma-protein metabolism, not elsewhere classified; F17.210 Nicotine dependence, cigarettes, uncomplicated; E86.1 Hypovolemia; G20 Parkinson's disease; I50.9 Heart failure, unspecified; N18.9 Chronic kidney disease, unspecified; R32 Unspecified urinary incontinence; Z20.822 Contact with and (suspected) exposure to COVID-19; Z79.4 Long term (current) use of insulin; Z79.899 Other long term (current) drug therapy; Z88.2 Allergy status to sulfonamides; E66.9 Obesity, unspecified; E11.65 Type 2 diabetes mellitus with hyperglycemia; Z88.8 Allergy status to other drugs, medicaments and biological substances; Z91.018 Allergy to other foods; T81.89XA Other complications of procedures, not elsewhere classified, initial encounter; Y83.8 Other surgical procedures as the cause of abnormal reaction of the patient, or of later complication, without mention of misadventure at the time of the procedure; Y92.89 Other specified places as the place of occurrence of the external cause
CPT/HCPCS: 36415; 76770-TC; 80048-TC; 80076-TC; 81001; 82962-TC; 83690-TC; 83735-TC; 84100-TC; 85025-TC; 87081-TC; 87086-TC; A4223; C9803; G0378; J0696; J1170; J1200; J1650; J1815; J1885; J7030; J7060

== ENCOUNTER 2023-01-10 16:41 | Emergency (ER) | payer MEDICARE, OTHER ==
[~2023-01-10] VITALS: Ht 177.8 cm; Wt 95.7 kg
[~2023-01-10 16:41] MED LIST changes: -ACET-73 PO; +ACET-868 PO; +AMIN30LI2 PO; +AMLO-212 PO; +ASCO-495 PO; -ASPI-1169 PO; +ASPI-1420 PO; +ATOR40TA PO; +CARV6.252 PO; +CEFT1FRO2 IV; -CLON0.1T PO; -CLON1TAB PO; +CYCL30DR EACHEYE; -DAPT500V2 IV; +DICL100G26 TP; -DIPH50CA4 PO; -EPOE1VIA7 SQ; +ERGO500040 PO; -FURO80TA85 PO; +GABA-532 PO; -GABA300C PO; -GUAI100S9 PO; -HYDR-3972 PO; -HYDR-4077 PO; -IPRA3AMP23 IH; +LORA-259 PO; +MELA3TAB41 PO; +MULT-447 PO; +NALO4SPR; +ONDA4TAB5 PO; +OXCA300T15 PO; +OXYC10TA49 PO; -PANT40TA49 PO; -PREG200C PO; -PROP40TA7 PO; +PSYL3.4P6 PO; -Polyvinyl Alcohol EACHEYE; +TIZA4TAB5 PO; +TYL2T PO; -VIT1TABL44 PO
--- NOTE | 2023-01-10 17:10 | NUR ---
C/O LEFT ANKLE PAIN S/P "TWISTED IT WHILE GETTING UP". from facility hx of DM NOTED A LACERATION ON THE 2ND TOE LT.
--- NOTE | 2023-01-10 17:11 | NUR ---
bld sugar 125
[2023-01-10] MEDS ORDERED: MORPHINE SULFATE INJ 2 MG/ML DISP.SYRIN IV ONE ×2 (17:30→19:30)
[2023-01-10 17:47] LABS: BASOPHILS % (AUTO) 0.5 % (0.0-2.0); EOSINOPHILS % (AUTO) 2.6 % (0.0-6.0); HEMATOCRIT 33 % (33-45); HEMOGLOBIN 10.6 g/dL (11.5-14.8); LYMPHOCYTES % (AUTO) 12.2 % (20.0-44.0); MEAN CORPUSCULAR HGB CONC 32 g/dl (31.0-36.0); MEAN CORPUSCULAR VOLUME 83 fL (82-100); MONOCYTES # (AUTO) 0.6 K/uL (0.1-1.30); NEUTROPHILS # (AUTO) 6.2 K/uL (1.8-8.9); NEUTROPHILS % (AUTO) 76.7 % (43.0-81.0); PLATELET COUNT (AUTO) 235 K/uL (150-450); RED BLOOD CELL COUNT(AUTO) 4.01 MIL/uL (4.0-5.2); WHITE BLOOD COUNT (AUTO) 8.1 K/uL (4.3-11.0)
[2023-01-10] MEDS ORDERED: MORPHINE SULFATE INJ 2 MG/ML DISP.SYRIN ONE (17:55)
[2023-01-10 18:00] LABS: CALCIUM, SERUM 9.3 mg/dL (8.5-10.1); CREATININE 1.6 mg/dL (0.6-1.3); POTASSIUM 4.9 mmol/L (3.5-5.1)
--- NOTE | 2023-01-10 18:22 | NUR ---
iv access done lt wrist 22g.
--- NOTE | 2023-01-10 18:51 | NUR ---
PAGED DR. TATE FOR ORTHO CONSULT. WAITING FOR RESPONSE.
--- NOTE | 2023-01-10 19:09 | NUR ---
DR MALDONADO ON THE PHONE WITH DR TATE, ORTHO
[2023-01-10] MEDS ORDERED: HYDR-3980 PO (19:18)
[2023-01-10] MEDS ORDERED: HYDR-4209 PO (19:21)
--- NOTE | 2023-01-10 19:32 | NUR ---
ATTEMPTED TO CALL [facility] AT TO GIVEN REPORT. NO ANSWER
--- NOTE | 2023-01-10 19:35 | NUR ---
[facility] ETA: 20-30 MIN
[2023-01-10] MEDS ORDERED: MORPHINE SULFATE INJ 4 MG/ML DISP.SYRIN ONE (20:10)
--- NOTE | 2023-01-10 20:16 | NUR ---
PT TRANSPORTED TO FACILITY VIA BLS / [facility]. PT IN NAD, RECEIVED PAIN MEDICATION PRIOR TO TRANSPORT.
--- NOTE | 2023-01-10 20:24 | NUR ---
PT WAS PICKED UP BY [facility] AND TRANSFERRED TO [facility] IN STABLE CONDITION.
--- NOTE | 2023-01-10 20:26 | NUR ---
IV removed. Catheter intact and site benign. Pressure and 4x4 applied to site. No bleeding noted.
[2023-01-10 20:32] VITALS: BP 155/83
== END 2023-01-10 20:26 ==
LOC: ER 17:04
DX: S82.842A Displaced bimalleolar fracture of left lower leg, initial encounter for closed fracture (principal); I12.9 Hypertensive chronic kidney disease with stage 1 through stage 4 chronic kidney disease, or unspecified chronic kidney disease; E11.22 Type 2 diabetes mellitus with diabetic chronic kidney disease; N18.9 Chronic kidney disease, unspecified; Z79.899 Other long term (current) drug therapy; Z79.82 Long term (current) use of aspirin; Z88.1 Allergy status to other antibiotic agents; Z88.8 Allergy status to other drugs, medicaments and biological substances; X58.XXXA Exposure to other specified factors, initial encounter; Y93.89 Activity, other specified; Y92.89 Other specified places as the place of occurrence of the external cause; Y99.8 Other external cause status
CPT/HCPCS: 99284; 96374; 29515; 73610; 73630; 73590; 85025; 80048; 36415; 85730; 82962; 96376; J2270 ×2

== ENCOUNTER 2024-02-24 15:02 | Inpatient (IN) | payer MEDICARE, OTHER ==
[~2024-02-24] VITALS: Ht 177.8 cm; Wt 127.0 kg
[~2024-02-24 15:02] MED LIST changes: +HYDR-4209 PO
[2024-02-24] MEDS: IV NS 0.9% 1,000 ML BAG IV ONE (16:45)
[2024-02-24] MEDS ORDERED: VANCOMYCIN 1 GM /D5W 250 ML PB IV ONE ×2 (16:51→22:08)
[2024-02-24 16:53] LABS: BASOPHILS % (AUTO) 0.5 % (0.0-2.0); EOSINOPHILS # (AUTO) 0.3 K/uL (0.0-0.7); EOSINOPHILS % (AUTO) 3.5 % (0.0-6.0); HEMATOCRIT 35 % (33-45); LYMPHOCYTES # (AUTO) 0.9 K/uL (0.8-4.8); LYMPHOCYTES % (AUTO) 8.9 % (20.0-44.0); MEAN CORPUSCULAR HEMOGLOBIN 28 PG (26.0-33.0); MEAN CORPUSCULAR HGB CONC 31 g/dl (31.0-36.0); MEAN CORPUSCULAR VOLUME 90 fL (82-100); MONOCYTES # (AUTO) 0.7 K/uL (0.1-1.30); MONOCYTES % (AUTO) 6.6 % (2.0-12.0); NEUTROPHILS # (AUTO) 8.1 K/uL (1.8-8.9); NEUTROPHILS % (AUTO) 80.5 % (43.0-81.0); PLATELET COUNT (AUTO) 277 K/uL (150-450); RED BLOOD CELL COUNT(AUTO) 3.93 MIL/uL (4.0-5.2); RED CELL DISTRIBUTION WIDTH 16.2 % (11.5-15.0)
[2024-02-24 17:06] LABS: INR 0.96 (0.91-1.10); PARTIAL THROMBOPLASTIN TIME 25.6 SEC (24.3-34.3); PROTHROMBIN TIME 9.9 SECS (9.2-11.1)
[2024-02-24 17:14] LABS: LACTIC ACID 1.3 mmol/L (0.4-2.0)
[2024-02-24] MEDS: VANCOMYCIN 1 GM in IV D5W 250 ML IV ONE (17:20)
[2024-02-24 17:25] LABS: ALANINE AMINOTRANSFERASE 23 U/L (12-78); ALBUMIN 2.6 g/dL (3.4-5.0); ALKALINE PHOSPHATASE 213 U/L (46-116); ASPARTATE AMINOTRANSFERASE 15 U/L (15-37); BILIRUBIN,DIRECT 0.1 mg/dL (0.0-0.2); BILIRUBIN,TOTAL 0.3 mg/dL (0.2-1.0); CARBON DIOXIDE 26 mmol/L (21-32); CHLORIDE 99 mmol/L (98-107); CREATININE 1.7 mg/dL (0.6-1.3); GLUCOSE 367 mg/dL (74-106); POTASSIUM 5.3 mmol/L (3.5-5.1); SODIUM SERUM 132 mmol/L (136-145); TOTAL PROTEIN, SERUM 7.8 g/dL (6.4-8.2); UREA NITROGEN, BLOOD 45 mg/dL (7-18)
[2024-02-24] MEDS ORDERED: DULO30CA52 PO (17:51)
[2024-02-24] MEDS ORDERED: FLUT1BLS6 IH (17:51)
[2024-02-24] MEDS ORDERED: CRAN425C6 PO (17:51)
[2024-02-24] MEDS ORDERED: NA P133E RC (17:51)
[2024-02-24] MEDS ORDERED: SEMA0.25 SQ (17:51)
[2024-02-24] MEDS ORDERED: FLUV100T3 PO (17:51)
[2024-02-24] MEDS ORDERED: MONT10TA22 PO (17:51)
[2024-02-24] MEDS ORDERED: MAGN400O6 PO (17:51)
[2024-02-24] MEDS ORDERED: ASCO500T21 PO (17:51)
[2024-02-24] MEDS ORDERED: OMEG-162 PO (17:51)
[2024-02-24] MEDS ORDERED: TRUEPLUS GLUCOSE PO (17:51)
[2024-02-24] MEDS ORDERED: BISA10SU11 RC (17:51)
[2024-02-24] MEDS ORDERED: LORA10TA7 PO (17:51)
[2024-02-24] MEDS ORDERED: BUPR2TAB3 SL (17:51)
[2024-02-24] MEDS ORDERED: CHOL200059 PO (17:51)
[2024-02-24] MEDS ORDERED: SENN8.6T19 PO (17:51)
[2024-02-24] MEDS ORDERED: BALS60OI TP (17:51)
[2024-02-24] MEDS ORDERED: GABA-536 PO (17:51)
[2024-02-24] MEDS ORDERED: POLY119P3 PO (17:51)
[2024-02-24] MEDS ORDERED: ACET-2030 PO (17:51)
[2024-02-24] MEDS ORDERED: PRED5DRO16 LEFTEYE (17:51)
[2024-02-24] MEDS ORDERED: FELO5TAB45 PO (17:51)
[2024-02-24] MEDS ORDERED: INSULIN REGULAR, HUMAN 100 UNIT/ML 10 ML VIAL ONE (18:09)
[2024-02-24] MEDS ORDERED: SODIUM POLYSTYRENE SULFONATE 15 G/60 ML BOTTLE ONE (18:09)
[2024-02-24] MEDS: SODIUM POLYSTYRENE SULFONATE 15 G/60 ML BOTTLE PO ONE (18:19)
[2024-02-24] MEDS: INSULIN REGULAR, HUMAN 100 UNIT/ML 10 ML VIAL IV ONE (18:20)
[2024-02-24] MEDS ORDERED: DEXTROSE 50%-WATER 50 ML DISP.SYRIN IV PRN (20:30)
[2024-02-24] MEDS ORDERED: Z GUARD REMEDY 4 OZ OINT TP PRN (20:30)
[2024-02-24] MEDS ORDERED: NA PHOS,M-B/NA PHOS,DI-BA 1 EA ENEMA RC PRN (20:30)
[2024-02-24] MEDS ORDERED: BISACODYL SUPP (10 MG) 10 MG/SUPP.RECT SUPP.RECT RC PRN (20:30)
[2024-02-24] MEDS ORDERED: ZOLPIDEM TARTRATE 5 MG TABLET PO PRN (20:30)
[2024-02-24] MEDS ORDERED: MAG HYDROX/AL HYDROX/SIMETH 30 ML UDC PO PRN (20:30)
[2024-02-24] MEDS ORDERED: VANCOMYCIN HCL 1.25 GM in IV D5W 250 ML IV SCH (21:00)
[2024-02-24] MEDS: MONTELUKAST SODIUM (10MG) 10 MG TABLET PO SCH (22:31)
[2024-02-24] MEDS: ATORVASTATIN 40 MG TABLET PO SCH (22:31)
[2024-02-24] MEDS: ONDANSETRON HCL/PF 4 MG/2 ML VIAL IVP PRN (22:31)
[2024-02-24] MEDS: BLOOD SUGAR DIAGNOSTIC 1 EACH STRIP IN SCH (22:31)
[2024-02-24] MEDS: ENOXAPARIN SODIUM 40 MG/0.4 ML DISP.SYRIN SQ SCH (22:33)
[2024-02-24] MEDS: INSULIN GLARGINE, 100 UNIT/ML CARTRIDGE SQ SCH (22:59)
[2024-02-24] MEDS: IV NS 0.9% 1,000 ML IV PRN (23:14)
[2024-02-24] MEDS: HYDROCODONE/APAP 5/325MG TABLET PO PRN (23:53)
[2024-02-25] MEDS: INSULIN REGULAR, HUMAN 100 UNIT/ML 3 ML VIAL SQ PRN (06:35)
[2024-02-25 06:54] LABS: BASOPHILS % (AUTO) 0.3 % (0.0-2.0); EOSINOPHILS # (AUTO) 0.2 K/uL (0.0-0.7); EOSINOPHILS % (AUTO) 2.9 % (0.0-6.0); HEMATOCRIT 29 % (33-45); HEMOGLOBIN 9.6 g/dL (11.5-14.8); LYMPHOCYTES % (AUTO) 11.7 % (20.0-44.0); MEAN CORPUSCULAR HEMOGLOBIN 29 PG (26.0-33.0); MEAN CORPUSCULAR HGB CONC 33 g/dl (31.0-36.0); MEAN CORPUSCULAR VOLUME 88 fL (82-100); MONOCYTES # (AUTO) 0.7 K/uL (0.1-1.30); MONOCYTES % (AUTO) 8.6 % (2.0-12.0); NEUTROPHILS # (AUTO) 6.3 K/uL (1.8-8.9); NEUTROPHILS % (AUTO) 76.5 % (43.0-81.0); PLATELET COUNT (AUTO) 229 K/uL (150-450); RED BLOOD CELL COUNT(AUTO) 3.31 MIL/uL (4.0-5.2); RED CELL DISTRIBUTION WIDTH 15.3 % (11.5-15.0); WHITE BLOOD COUNT (AUTO) 8.2 K/uL (4.3-11.0)
[2024-02-25 07:24] LABS: CALCIUM, SERUM 8.3 mg/dL (8.5-10.1); CREATININE 1.3 mg/dL (0.6-1.3); PHOSPHORUS 4.3 mg/dL (2.5-4.9); POTASSIUM 4.9 mmol/L (3.5-5.1)
[2024-02-25 08:00] VITALS: BP 151/90; TEMP 98.8; O2SAT 99
[2024-02-25] MEDS: CHOLECALCIFEROL 1,000 UNIT TABLET (VIT D3) PO SCH (08:07)
[2024-02-25] MEDS: FERROUS SULFATE (325 MG) 325 MG/TAB TABLET PO SCH (08:07)
[2024-02-25] MEDS: ASCORBIC ACID 500 MG TABLET PO SCH (08:08)
[2024-02-25] MEDS: LORATADINE 10 MG TABLET PO SCH (08:08)
[2024-02-25] MEDS: PANTOPRAZOLE 40 MG TABLET.DR PO SCH (08:08)
[2024-02-25] MEDS: DOCUSATE SODIUM 100 MG CAPSULE PO SCH (08:08)
[2024-02-25] MEDS: GABAPENTIN 400 MG CAPSULE PO SCH (08:08)
[2024-02-25] MEDS: SENNOSIDES 8.6 MG TABLET PO SCH (08:08)
[2024-02-25] MEDS: OXCARBAZEPINE 150 MG TABLET PO SCH (08:08)
[2024-02-25] MEDS: ASPIRIN EC 81 MG TABLET.DR PO SCH (08:08)
[2024-02-25] MEDS: DULOXETINE HCL 30 MG CAPSULE.DR PO SCH (08:08)
[2024-02-25] MEDS: CARVEDILOL 6.25 MG TABLET PO SCH (08:11)
[2024-02-25] MEDS: FLUVOXAMINE MALEATE 50 MG TABLET PO SCH (08:13)
[2024-02-25] MEDS: prednisoLONE ACET 1% OPHT DROP 5 ML BOTTLE LEFTEYE SCH (08:13)
[2024-02-25] MEDS: FLUTICASONE/VILANTEROL 1 EACH BLST.W.DEV IH SCH (08:13)
[2024-02-25 08:23] LABS: THYROID STIMULATING HORMONE 4.95 uIU/mL (0.358-3.74)
[2024-02-25 16:00] VITALS: BP 153/79; TEMP 98.2; O2SAT 98
[2024-02-25 20:00] VITALS: BP 130/102; TEMP 98.4; O2SAT 98
[2024-02-25] MEDS: VANCOMYCIN HCL 1.25 GM in IV D5W 250 ML IV SCH (21:39)
[2024-02-26 07:27] LABS: CALCIUM, SERUM 8.1 mg/dL (8.5-10.1); CREATININE 1.3 mg/dL (0.6-1.3); POTASSIUM 4.6 mmol/L (3.5-5.1)
[2024-02-26 08:20] VITALS: BP 173/87; TEMP 98.2; O2SAT 95
[2024-02-26 08:36] VITALS: BP 154/97; TEMP 98.9; O2SAT 97
[2024-02-26 16:26] VITALS: BP 143/84; TEMP 98.3; O2SAT 97
[2024-02-26] MEDS: ARGININE/GLUTAMINE/CALCIUM BMB 1 EACH POWD.PACK PO SCH (17:29)
[2024-02-26] MEDS: ACETAMINOPHEN 325 MG TABLET PO PRN (23:58)
[2024-02-27] MEDS: MAGNESIUM HYDROXIDE 30 ML UDC PO PRN (05:06)
[2024-02-27 07:20] LABS: BASOPHILS % (AUTO) 0.4 % (0.0-2.0); EOSINOPHILS # (AUTO) 0.2 K/uL (0.0-0.7); EOSINOPHILS % (AUTO) 2.5 % (0.0-6.0); HEMATOCRIT 31 % (33-45); HEMOGLOBIN 10.4 g/dL (11.5-14.8); LYMPHOCYTES # (AUTO) 0.7 K/uL (0.8-4.8); LYMPHOCYTES % (AUTO) 7.9 % (20.0-44.0); MEAN CORPUSCULAR HEMOGLOBIN 29 PG (26.0-33.0); MEAN CORPUSCULAR HGB CONC 33 g/dl (31.0-36.0); MEAN CORPUSCULAR VOLUME 87 fL (82-100); MONOCYTES # (AUTO) 0.7 K/uL (0.1-1.30); MONOCYTES % (AUTO) 7.6 % (2.0-12.0); NEUTROPHILS # (AUTO) 7.4 K/uL (1.8-8.9); NEUTROPHILS % (AUTO) 81.6 % (43.0-81.0); PLATELET COUNT (AUTO) 230 K/uL (150-450); RED CELL DISTRIBUTION WIDTH 15.3 % (11.5-15.0); WHITE BLOOD COUNT (AUTO) 9.1 K/uL (4.3-11.0)
[2024-02-27 07:26] LABS: ALBUMIN 2.3 g/dL (3.4-5.0); BILIRUBIN,TOTAL 0.4 mg/dL (0.2-1.0); CALCIUM, SERUM 8.9 mg/dL (8.5-10.1); CREATININE 1.2 mg/dL (0.6-1.3); PHOSPHORUS 3.1 mg/dL (2.5-4.9); POTASSIUM 4.5 mmol/L (3.5-5.1); TOTAL PROTEIN, SERUM 7.1 g/dL (6.4-8.2)
[2024-02-27 08:28] VITALS: BP 180/84; TEMP 98.4; O2SAT 100
[2024-02-27 10:00] VITALS: BP 180/84; TEMP 98.4; O2SAT 100
[2024-02-27] MEDS ORDERED: clonazePAM 1 MG TABLET PO PRN (11:30)
[2024-02-27] MEDS: ONDANSETRON HCL/PF 4 MG/2 ML VIAL IV ONE (11:51)
[2024-02-27] MEDS ORDERED: POLYVINYL ALCOHOL 15 ML BOTTLE EACHEYE PRN (12:00)
[2024-02-27] MEDS ORDERED: BUPRENORPHINE HCL 2 MG TAB.SUBL SL SCH (13:00)
[2024-02-27 16:04] VITALS: BP 138/65; TEMP 98; O2SAT 96
[2024-02-27 16:08] VITALS: BP 138/65; TEMP 98; O2SAT 96
[2024-02-27] MEDS: BUPRENORPHINE HCL 2 MG TAB.SUBL SL SCH (18:26)
[2024-02-27 20:00] VITALS: BP 149/74; TEMP 98.2; O2SAT 95
[2024-02-28 07:42] VITALS: O2SAT 97
[2024-02-28 07:49] LABS: CALCIUM, SERUM 8.2 mg/dL (8.5-10.1); CREATININE 1.2 mg/dL (0.6-1.3); POTASSIUM 4.6 mmol/L (3.5-5.1)
[2024-02-28 08:00] VITALS: BP 150/102; TEMP 98.2; O2SAT 97
[2024-02-28] MEDS: THERAHONEY GEL 1.5 OZ TUBE TP SCH (09:59)
[2024-02-28] MEDS ORDERED: LACTULOSE 10 G/15 ML UDC (PYXIS) PO PRN (14:30)
[2024-02-28] MEDS: SORBITOL SOLUTION 70% 30 ML SOLUTION PO SCH (15:10)
[2024-02-28 16:00] VITALS: BP 157/76; TEMP 98.2; O2SAT 94
[2024-02-28] MEDS: BUPRENORPHINE HCL 2 MG TAB.SUBL SL SCH (18:00)
[2024-02-28 20:00] VITALS: BP 137/81; TEMP 98.2; O2SAT 99
[2024-02-29 07:00] VITALS: BP 176/81; TEMP 97.5; O2SAT 100
[2024-02-29 07:10] LABS: CALCIUM, SERUM 8.6 mg/dL (8.5-10.1); CREATININE 1.3 mg/dL (0.6-1.3); POTASSIUM 4.9 mmol/L (3.5-5.1)
[2024-02-29] MEDS ORDERED: COLL30OI TP (10:39)
[2024-02-29] MEDS ORDERED: SORB30SO2 PO (10:39)
[2024-02-29 12:02] VITALS: BP 158/77
[2024-02-29] MEDS: hydrALAZINE HCL 10 MG TABLET PO ONE (12:07)
[2024-02-29] MEDS: LOSARTAN POTASSIUM 50 MG TABLET PO SCH (12:08)
[2024-02-29] MEDS ORDERED: BUPRENORPHINE HCL 2 MG TAB.SUBL SL ONE (12:59)
[2024-02-29 15:11] VITALS: BP 160/74; O2SAT 100
[2024-02-29 16:00] VITALS: BP 182/74; TEMP 98.4; O2SAT 98
[2024-02-29] MEDS: hydrALAZINE HCL IV 20 MG VIAL IV ONE (17:03)
[2024-02-29 18:32] VITALS: BP 145/69; O2SAT 97
== END 2024-02-29 18:43 | DRG 571 ==
LOC: ER 15:04 → MED 18:10
PROVIDERS: ATTEND Nurse Practitioner Acute Care
PROC: 0JB90ZZ Excision of Buttock Subcutaneous Tissue and Fascia, Open Approach (ICD-10-PCS; principal; 2024-02-29)
PROC: 0QBJ0ZZ Excision of Right Fibula, Open Approach (ICD-10-PCS; 2024-02-29)
DX: L89.323 Pressure ulcer of left buttock, stage 3 (principal); D68.59 Other primary thrombophilia; E44.1 Mild protein-calorie malnutrition; Z68.41 Body mass index [BMI] 40.0-44.9, adult; N17.9 Acute kidney failure, unspecified; N18.30 Chronic kidney disease, stage 3 unspecified; J44.9 Chronic obstructive pulmonary disease, unspecified; I12.9 Hypertensive chronic kidney disease with stage 1 through stage 4 chronic kidney disease, or unspecified chronic kidney disease; S81.801A Unspecified open wound, right lower leg, initial encounter; E11.22 Type 2 diabetes mellitus with diabetic chronic kidney disease; L89.313 Pressure ulcer of right buttock, stage 3; E11.42 Type 2 diabetes mellitus with diabetic polyneuropathy; G20.A1 Parkinson's disease without dyskinesia, without mention of fluctuations; Z91.199 Patient's noncompliance with other medical treatment and regimen due to unspecified reason; E78.5 Hyperlipidemia, unspecified; Z88.2 Allergy status to sulfonamides; Z88.8 Allergy status to other drugs, medicaments and biological substances; Z91.018 Allergy to other foods; Z79.51 Long term (current) use of inhaled steroids; Z79.85 Long-term (current) use of injectable non-insulin antidiabetic drugs; Z79.899 Other long term (current) drug therapy; Z79.82 Long term (current) use of aspirin; Z79.4 Long term (current) use of insulin; E66.01 Morbid (severe) obesity due to excess calories; E87.5 Hyperkalemia; E88.09 Other disorders of plasma-protein metabolism, not elsewhere classified; G89.4 Chronic pain syndrome; F17.200 Nicotine dependence, unspecified, uncomplicated; K59.00 Constipation, unspecified; S81.812A Laceration without foreign body, left lower leg, initial encounter; X58.XXXA Exposure to other specified factors, initial encounter; Y92.9 Unspecified place or not applicable; V89.2XXS Person injured in unspecified motor-vehicle accident, traffic, sequela; Z74.01 Bed confinement status; Z86.14 Personal history of Methicillin resistant Staphylococcus aureus infection; F41.9 Anxiety disorder, unspecified; F32.A Depression, unspecified; Z87.19 Personal history of other diseases of the digestive system; Z74.09 Other reduced mobility; F19.21 Other psychoactive substance dependence, in remission
CPT/HCPCS: 36415; 71045-TC; 80048-TC; 80053-TC; 80061-TC; 80076-TC; 80202-TC; 82962-TC; 83605-TC; 83735-TC; 84100-TC; 84443-TC; 84484-TC; 85025-TC; 85730-TC; 87040-TC; 87081-TC; 94799-TC; 97112-TC; 97530-TC; A4223; A6253; A6403; A6407; G0378; J0360; J1650; J1815; J2405; J3370; J7030; J7060

== ENCOUNTER 2024-05-15 23:01 | Emergency (ER) | payer MEDICARE, OTHER ==
[~2024-05-15] VITALS: Ht 167.6 cm; Wt 90.7 kg
[~2024-05-15 23:01] MED LIST changes: +ACET-2030 PO; -AMLO-212 PO; -ASCO-495 PO; +ASCO500T21 PO; +BALS60OI TP; +BISA10SU11 RC; +BUPR2TAB3 SL; -CEFT1FRO2 IV; +CHOL200059 PO; +COLL30OI TP; +CRAN425C6 PO; -DICL100G26 TP; +DULO30CA52 PO; -DULO60CA45 PO; -ERGO500040 PO; +FELO5TAB45 PO; +FLUT1BLS6 IH; +FLUV100T3 PO; -GABA-532 PO; +GABA-536 PO; -HYDR-4209 PO; -LORA-259 PO; +LORA10TA7 PO; +MAGN400O6 PO; -METH10TA2 PO; +MONT10TA22 PO; +NA P133E RC; +OMEG-162 PO; -OXYC10TA49 PO; +POLY119P3 PO; +PRED5DRO16 LEFTEYE; -PSYL3.4P6 PO; +SEMA0.25 SQ; +SENN8.6T19 PO; +SORB30SO2 PO; -TIZA4TAB5 PO; +TRUEPLUS GLUCOSE PO; -TYL2T PO
[2024-05-16] MEDS: LIDOCAINE HCL/PF 1% 30 ML VIAL TP ONE
[2024-05-16] MEDS: TDAP [DIPH/PERTUSSIS/TET] 0.5 ML VIAL IM ONE
[2024-05-16] MEDS ORDERED: TDAP [DIPH/PERTUSSIS/TET] 0.5 ML VIAL IM ONE (00:54)
[2024-05-16] MEDS ORDERED: LIDOCAINE HCL/MPF 1% 30 ML VIAL IJ ONE (00:54)
[2024-05-16 05:23] VITALS: BP 128/71; TEMP 98; O2SAT 99
== END 2024-05-16 05:23 | disposition home or self-care (01) ==
LOC: ER 23:15
DX: S91.115A Laceration without foreign body of left lesser toe(s) without damage to nail, initial encounter (principal); E11.22 Type 2 diabetes mellitus with diabetic chronic kidney disease; F17.200 Nicotine dependence, unspecified, uncomplicated; I12.9 Hypertensive chronic kidney disease with stage 1 through stage 4 chronic kidney disease, or unspecified chronic kidney disease; E11.40 Type 2 diabetes mellitus with diabetic neuropathy, unspecified; G40.909 Epilepsy, unspecified, not intractable, without status epilepticus; G20.A1 Parkinson's disease without dyskinesia, without mention of fluctuations; G89.29 Other chronic pain; F32.A Depression, unspecified; J44.9 Chronic obstructive pulmonary disease, unspecified; Z88.2 Allergy status to sulfonamides; Z79.82 Long term (current) use of aspirin; W06.XXXA Fall from bed, initial encounter
CPT/HCPCS: 12001; 73660; 90471; 90715; 99283; J3490

== ENCOUNTER 2024-06-16 20:39 | Inpatient (IN) | payer MEDICARE, OTHER ==
[~2024-06-16] VITALS: Ht 177.8 cm; Wt 99.8 kg
[2024-06-16] MEDS ORDERED: METOCLOPRAMIDE HCL 10 MG/2 ML VIAL ONE (21:43)
[2024-06-16] MEDS: IV NS 0.9% 1,000 ML BAG IV ONE (21:58)
[2024-06-16] MEDS: ONDANSETRON HCL/PF 4 MG/2 ML VIAL IV ONE (21:58)
[2024-06-16] MEDS ORDERED: ONDANSETRON HCL/PF 4 MG/2 ML VIAL ONE ×2 (21:59)
[2024-06-16] MEDS ORDERED: METOCLOPRAMIDE HCL 10 MG/2 ML VIAL IV ONE (22:00)
[2024-06-16 22:01] LABS: BASOPHILS # (AUTO) 0.1 K/uL (0.0-0.2); BASOPHILS % (AUTO) 1.1 % (0.0-2.0); EOSINOPHILS # (AUTO) 0.3 K/uL (0.0-0.7); EOSINOPHILS % (AUTO) 3.3 % (0.0-6.0); HEMATOCRIT 41 % (33-45); HEMOGLOBIN 13.3 g/dL (11.5-14.8); LYMPHOCYTES % (AUTO) 12.5 % (20.0-44.0); MEAN CORPUSCULAR HEMOGLOBIN 27 PG (26.0-33.0); MEAN CORPUSCULAR HGB CONC 32 g/dl (31.0-36.0); MEAN CORPUSCULAR VOLUME 84 fL (82-100); MONOCYTES # (AUTO) 0.7 K/uL (0.1-1.30); MONOCYTES % (AUTO) 8.1 % (2.0-12.0); PLATELET COUNT (AUTO) 281 K/uL (150-450); RED CELL DISTRIBUTION WIDTH 17.7 % (11.5-15.0)
[2024-06-16 22:15] LABS: BILIRUBIN,DIRECT 0.1 mg/dL (0.0-0.2); BILIRUBIN,TOTAL 0.4 mg/dL (0.2-1.0); CALCIUM, SERUM 9.6 mg/dL (8.5-10.1); CREATININE 2.3 mg/dL (0.6-1.3); POTASSIUM 4.3 mmol/L (3.5-5.1); TOTAL PROTEIN, SERUM 8.6 g/dL (6.4-8.2)
[2024-06-16] MEDS: IV NS 0.9% 500 ML BAG IV ONE (23:59)
[2024-06-17 01:03] LABS: APPEARANCE,URINE CLOUDY (CLEAR); BILIRUBIN,URINE NEGATIVE (NEGATIVE); BLOOD, URINE 1+ Ery/uL (NEGATIVE); COLOR,URINE YELLOW (YELLOW); KETONES,URINE NEGATIVE (NEGATIVE); LEUKOCYTE ESTERASE ,URINE 2+ (NEGATIVE); NITRITE, URINE NEGATIVE (NEGATIVE); PROTEIN,URINE 3+ mg/dl (NEGATIVE); UGLUCOSE 2+ mg/dL (NEGATIVE); UROBILINOGEN,URINE 0.2 EU/dL (0.2)
[2024-06-17 01:19] LABS: ADD URINE CULTURE YES; BACTERIA,URINE 1+ /HPF (None Seen); MUCUS,URINE Many /LPF (None Seen); WBC,URINE TOO NUMEROUS TO COUN /HPF (0-3)
[2024-06-17 01:22] LABS: CALCIUM, SERUM 8.6 mg/dL (8.5-10.1); CREATININE 2.3 mg/dL (0.6-1.3); POTASSIUM 3.2 mmol/L (3.5-5.1)
[2024-06-17] MEDS: CEFTRIAXONE 1GM BAG (ER ONLY) 1 GM/50 ML PIGGYBACK IV ONE (01:41)
[2024-06-17] MEDS ORDERED: NA PHOS,M-B/NA PHOS,DI-BA 1 EA ENEMA RC PRN (02:00)
[2024-06-17] MEDS ORDERED: ACETAMINOPHEN 325 MG TABLET PO PRN (02:00)
[2024-06-17] MEDS ORDERED: MAG HYDROX/AL HYDROX/SIMETH 30 ML UDC PO PRN (02:00)
[2024-06-17] MEDS ORDERED: METOCLOPRAMIDE HCL 10 MG/2 ML VIAL IV PRN (02:00)
[2024-06-17] MEDS ORDERED: BISACODYL SUPP (10 MG) 10 MG/SUPP.RECT SUPP.RECT RC PRN (02:00)
[2024-06-17] MEDS ORDERED: DEXTROSE 50%-WATER 50 ML DISP.SYRIN IV PRN (02:00)
[2024-06-17] MEDS ORDERED: Z GUARD REMEDY 4 OZ OINT TP PRN (02:00)
[2024-06-17 03:10] VITALS: BP 153/83; TEMP 97.9; O2SAT 95
[2024-06-17] MEDS: BUPRENORPHINE HCL 2 MG TAB.SUBL SL SCH ×2 (04:14→22:37)
[2024-06-17] MEDS: ONDANSETRON HCL/PF 4 MG/2 ML VIAL IVP PRN (06:00)
[2024-06-17] MEDS: BLOOD SUGAR DIAGNOSTIC 1 EACH STRIP IN SCH (07:00)
[2024-06-17] MEDS: INSULIN REGULAR, HUMAN 100 UNIT/ML 3 ML VIAL SQ PRN (07:01)
[2024-06-17 07:27] LABS: CALCIUM, SERUM 9.4 mg/dL (8.5-10.1); CREATININE 2.3 mg/dL (0.6-1.3); MAGNESIUM 2.3 mg/dL (1.8-2.4); PHOSPHORUS 4.8 mg/dL (2.5-4.9); POTASSIUM 3.3 mmol/L (3.5-5.1)
[2024-06-17 08:00] VITALS: BP 152/85; TEMP 97.5; O2SAT 98
[2024-06-17] MEDS ORDERED: BUDE10.2 IH (08:05)
[2024-06-17] MEDS ORDERED: ALBU8.5H8 IH (08:05)
[2024-06-17] MEDS ORDERED: [UNRECOGNIZED DRUG - OTHER] PO (08:05)
[2024-06-17] MEDS ORDERED: LEVE750T10 PO (08:05)
[2024-06-17] MEDS ORDERED: L. A1TAB10 PO (08:05)
[2024-06-17] MEDS ORDERED: PANT40TA2 PO (08:05)
[2024-06-17] MEDS ORDERED: BROM1.7D9 EACHEYE (08:05)
[2024-06-17] MEDS ORDERED: NORT25CA PO (08:05)
[2024-06-17] MEDS ORDERED: CHOL100043 PO (08:05)
[2024-06-17] MEDS ORDERED: ALLO100T PO (08:05)
[2024-06-17] MEDS ORDERED: SENN8.6T19 PO (08:05)
[2024-06-17] MEDS ORDERED: TIOT18CA3 IH (08:05)
[2024-06-17] MEDS ORDERED: BISA-79 PO (08:05)
[2024-06-17] MEDS ORDERED: BUPR2TAB3 SL (08:05)
[2024-06-17] MEDS ORDERED: EMPA25TA PO (08:05)
[2024-06-17] MEDS ORDERED: FURO-144 PO (08:05)
[2024-06-17] MEDS: ASPIRIN EC 81 MG TABLET.DR PO SCH (08:19)
[2024-06-17] MEDS: ASCORBIC ACID 500 MG TABLET PO SCH (08:19)
[2024-06-17] MEDS: LORATADINE 10 MG TABLET PO SCH (08:19)
[2024-06-17] MEDS: GABAPENTIN 400 MG CAPSULE PO SCH (08:19)
[2024-06-17] MEDS: PANTOPRAZOLE 40 MG VIAL IV SCH (08:19)
[2024-06-17] MEDS: OXCARBAZEPINE 150 MG TABLET PO SCH (08:20)
[2024-06-17] MEDS: CHOLECALCIFEROL 1,000 UNIT TABLET (VIT D3) PO SCH (08:21)
[2024-06-17] MEDS: MULTIVIT W/MINERALS 1 TAB TABLET PO SCH (08:21)
[2024-06-17] MEDS: DULOXETINE HCL 30 MG CAPSULE.DR PO SCH (08:21)
[2024-06-17] MEDS: FLUVOXAMINE MALEATE 50 MG TABLET PO SCH (08:22)
[2024-06-17] MEDS: DOCUSATE SODIUM 100 MG CAPSULE PO SCH (08:23)
[2024-06-17] MEDS: FERROUS SULFATE (325 MG) 325 MG/TAB TABLET PO SCH (08:23)
[2024-06-17] MEDS: SENNOSIDES 8.6 MG TABLET PO SCH (08:23)
[2024-06-17] MEDS: POLYETHYLENE GLYCOL 3350 17 GM POWD.PACK PO SCH (08:23)
[2024-06-17] MEDS: PROSOURCE / PROSTAT (PYXIS) 30 ML UDC PO SCH (08:23)
[2024-06-17] MEDS: CARVEDILOL 6.25 MG TABLET PO SCH (08:25)
[2024-06-17] MEDS ORDERED: FISH OIL PO SCH (09:00)
[2024-06-17] MEDS ORDERED: OMEGA PO SCH (09:00)
[2024-06-17] MEDS ORDERED: Medication Not On Formulary EA (Fluticasone/Umeclidin/Vilanter (Trelegy Ellipta 100-62.5 IH SCH (09:00)
[2024-06-17] MEDS ORDERED: FELODIPINE 2.5 MG TAB.SR.24H PO SCH ×2 (09:00)
[2024-06-17] MEDS ORDERED: [UNRECOGNIZED DRUG - OTHER] PO SCH (09:00)
[2024-06-17] MEDS ORDERED: EPA PO SCH (09:00)
[2024-06-17] MEDS ORDERED: DHA PO SCH (09:00)
[2024-06-17] MEDS ORDERED: Medication Not On Formulary EA (Cranberry Extract (Cranberry) 425 MG) PO SCH (09:00)
[2024-06-17] MEDS: IV NS 0.9% 1,000 ML IV ONE (10:08)
[2024-06-17] MEDS: POTASSIUM CHLORIDE 10 MEQ TABLET.SA PO ONE (10:08)
[2024-06-17] MEDS: THERAHONEY GEL 1.5 OZ TUBE TP SCH (11:26)
[2024-06-17] MEDS ORDERED: Medication Not On Formulary EA (Bromfenac Sodium 1 DROP) EACHEYE SCH (12:30)
[2024-06-17] MEDS ORDERED: CHOLECALCIFEROL 1,000 UNIT TABLET (VIT D3) PO SCH (12:30)
[2024-06-17] MEDS ORDERED: BISACODYL (5 MG) 5 MG TABLET.DR PO PRN (12:30)
[2024-06-17] MEDS: LEVETIRACETAM (250 MG) 250 MG TABLET PO SCH (12:47)
[2024-06-17] MEDS: ACIDOPHILUS/BULGARICUS 1 EACH TAB.CHEW PO SCH (12:47)
[2024-06-17] MEDS: ALLOPURINOL 100 MG TABLET PO SCH (12:49)
[2024-06-17] MEDS ORDERED: GABAPENTIN 400 MG CAPSULE PO SCH (13:00)
[2024-06-17] MEDS ORDERED: ALBUTEROL FS 2.5 MG/0.5 ML VIAL.NEB IH PRN (13:00)
[2024-06-17] MEDS: AMLODIPINE BESYLATE 5 MG TABLET PO SCH (13:30)
[2024-06-17] MEDS: DICLOFENAC 0.1% OPTH DROPS 5 ML BOTTLE OP SCH (14:27)
[2024-06-17 16:00] VITALS: BP 120/62; TEMP 98.8; O2SAT 95
[2024-06-17 20:00] VITALS: BP 135/76; TEMP 98.1; O2SAT 98
[2024-06-17] MEDS: CEFTRIAXONE 1 G in IV D5W 50 ML IV SCH (20:44)
[2024-06-17] MEDS: ATORVASTATIN 40 MG TABLET PO SCH (21:28)
[2024-06-17] MEDS: MONTELUKAST SODIUM (10MG) 10 MG TABLET PO SCH (21:29)
[2024-06-17] MEDS: NORTRIPTYLINE HCL 25 MG CAPSULE PO SCH (21:29)
[2024-06-17] MEDS: INSULIN GLARGINE, 100 UNIT/ML CARTRIDGE SQ SCH (21:35)
[2024-06-17] MEDS ORDERED: SENNOSIDES 8.6 MG TABLET PO PRN (22:00)
[2024-06-17 23:00] VITALS: O2SAT 98
[2024-06-17] MEDS: IPRATROPIUM NEB FS 0.5 MG/2.5 ML AMPUL.NEB IH SCH (23:00)
[2024-06-17 23:10] VITALS: O2SAT 97
[2024-06-18] VITALS (13 sets, daily range): BP systolic 120–164; BP diastolic 66–88; TEMP 97.9–98.4; O2SAT 94–100
[2024-06-18 06:36] LABS: BASOPHILS % (AUTO) 0.8 % (0.0-2.0); EOSINOPHILS # (AUTO) 0.3 K/uL (0.0-0.7); HEMATOCRIT 36 % (33-45); HEMOGLOBIN 11.7 g/dL (11.5-14.8); LYMPHOCYTES # (AUTO) 0.7 K/uL (0.8-4.8); LYMPHOCYTES % (AUTO) 11.8 % (20.0-44.0); MEAN CORPUSCULAR HEMOGLOBIN 28 PG (26.0-33.0); MEAN CORPUSCULAR HGB CONC 32 g/dl (31.0-36.0); MEAN CORPUSCULAR VOLUME 85 fL (82-100); MONOCYTES # (AUTO) 0.7 K/uL (0.1-1.30); MONOCYTES % (AUTO) 11.1 % (2.0-12.0); NEUTROPHILS # (AUTO) 4.2 K/uL (1.8-8.9); NEUTROPHILS % (AUTO) 71.3 % (43.0-81.0); PLATELET COUNT (AUTO) 201 K/uL (150-450); RED BLOOD CELL COUNT(AUTO) 4.22 MIL/uL (4.0-5.2); RED CELL DISTRIBUTION WIDTH 17.7 % (11.5-15.0); WHITE BLOOD COUNT (AUTO) 5.9 K/uL (4.3-11.0)
[2024-06-18 07:02] LABS: ALBUMIN 2.6 g/dL (3.4-5.0); BILIRUBIN,TOTAL 0.2 mg/dL (0.2-1.0); CALCIUM, SERUM 8.7 mg/dL (8.5-10.1); MAGNESIUM 2.2 mg/dL (1.8-2.4); PHOSPHORUS 4.5 mg/dL (2.5-4.9); POTASSIUM 3.8 mmol/L (3.5-5.1); TOTAL PROTEIN, SERUM 7.3 g/dL (6.4-8.2)
[2024-06-18] MEDS: PANTOPRAZOLE 40 MG TABLET.DR PO SCH (08:56)
[2024-06-18] MEDS: GABAPENTIN 400 MG CAPSULE PO SCH (08:56)
[2024-06-18] MEDS: CHOLECALCIFEROL 1,000 UNIT TABLET (VIT D3) PO SCH (08:57)
[2024-06-18] MEDS ORDERED: BUPRENORPHINE HCL 2 MG TAB.SUBL SL SCH (09:00)
[2024-06-18] MEDS: ACETAMINOPHEN 325 MG TABLET PO PRN (13:04)
[2024-06-18] MEDS: POLYVINYL ALCOHOL 15 ML BOTTLE EACHEYE SCH (20:07)
[2024-06-19] VITALS (11 sets, daily range): BP systolic 127–150; BP diastolic 72–89; TEMP 98.2–99.3; O2SAT 88–100
[2024-06-19 08:06] LABS: PTH, INTACT 49 pg/mL (15-65)
[2024-06-19 10:05] LABS: BASOPHILS % (AUTO) 0.5 % (0.0-2.0); EOSINOPHILS # (AUTO) 0.4 K/uL (0.0-0.7); EOSINOPHILS % (AUTO) 5.4 % (0.0-6.0); HEMATOCRIT 36 % (33-45); HEMOGLOBIN 11.6 g/dL (11.5-14.8); LYMPHOCYTES # (AUTO) 0.6 K/uL (0.8-4.8); LYMPHOCYTES % (AUTO) 8.1 % (20.0-44.0); MEAN CORPUSCULAR HEMOGLOBIN 27 PG (26.0-33.0); MEAN CORPUSCULAR HGB CONC 32 g/dl (31.0-36.0); MEAN CORPUSCULAR VOLUME 86 fL (82-100); MONOCYTES # (AUTO) 0.5 K/uL (0.1-1.30); MONOCYTES % (AUTO) 7.3 % (2.0-12.0); NEUTROPHILS # (AUTO) 5.7 K/uL (1.8-8.9); NEUTROPHILS % (AUTO) 78.7 % (43.0-81.0); PLATELET COUNT (AUTO) 205 K/uL (150-450); RED BLOOD CELL COUNT(AUTO) 4.22 MIL/uL (4.0-5.2); RED CELL DISTRIBUTION WIDTH 17.3 % (11.5-15.0); WHITE BLOOD COUNT (AUTO) 7.2 K/uL (4.3-11.0)
[2024-06-19 10:30] LABS: CALCIUM, SERUM 9.3 mg/dL (8.5-10.1); CREATININE 1.7 mg/dL (0.6-1.3); MAGNESIUM 2.2 mg/dL (1.8-2.4); PHOSPHORUS 4.1 mg/dL (2.5-4.9); POTASSIUM 4.2 mmol/L (3.5-5.1)
[2024-06-19] MEDS: IPRATROPIUM NEB FS 0.5 MG/2.5 ML AMPUL.NEB NEB SCH (16:35)
[2024-06-19] MEDS: ALBUTEROL FS 2.5 MG/0.5 ML VIAL.NEB NEB SCH (16:35)
[2024-06-20] VITALS (11 sets, daily range): BP systolic 137–169; BP diastolic 66–92; TEMP 97.7–98.2; O2SAT 94–100
[2024-06-20] MEDS: methylPREDNISolone SOD SUCC 125 MG/2ML VIAL IV ONE (04:46)
[2024-06-20 07:03] LABS: BASOPHILS % (AUTO) 0.4 % (0.0-2.0); EOSINOPHILS # (AUTO) 0.3 K/uL (0.0-0.7); EOSINOPHILS % (AUTO) 4.8 % (0.0-6.0); HEMATOCRIT 33 % (33-45); HEMOGLOBIN 10.5 g/dL (11.5-14.8); LYMPHOCYTES # (AUTO) 0.6 K/uL (0.8-4.8); LYMPHOCYTES % (AUTO) 8.9 % (20.0-44.0); MEAN CORPUSCULAR HEMOGLOBIN 27 PG (26.0-33.0); MEAN CORPUSCULAR HGB CONC 32 g/dl (31.0-36.0); MEAN CORPUSCULAR VOLUME 86 fL (82-100); MONOCYTES # (AUTO) 0.4 K/uL (0.1-1.30); MONOCYTES % (AUTO) 5.4 % (2.0-12.0); NEUTROPHILS # (AUTO) 5.4 K/uL (1.8-8.9); NEUTROPHILS % (AUTO) 80.5 % (43.0-81.0); PLATELET COUNT (AUTO) 192 K/uL (150-450); RED BLOOD CELL COUNT(AUTO) 3.84 MIL/uL (4.0-5.2); RED CELL DISTRIBUTION WIDTH 17.3 % (11.5-15.0); WHITE BLOOD COUNT (AUTO) 6.7 K/uL (4.3-11.0)
[2024-06-20 07:21] LABS: CALCIUM, SERUM 9.1 mg/dL (8.5-10.1); CREATININE 1.7 mg/dL (0.6-1.3); POTASSIUM 4.1 mmol/L (3.5-5.1)
[2024-06-20] MEDS ORDERED: BUPIVACAINE 0.5 % PF 150 MG/30 ML VIAL ONE (09:38)
[2024-06-20] MEDS ORDERED: BACITRACIN ZINC OINT PACKET 1 EA PACKET TP ONE (09:38)
[2024-06-20] MEDS ORDERED: LIDOCAINE 1%-EPI 1:100,000 20 ML VIAL ONE (09:39)
[2024-06-20] MEDS ORDERED: VANCOMYCIN 1 GM VIAL ONE (09:39)
[2024-06-20] MEDS ORDERED: LIDOCAINE 1% INJ 50 ML MDV IJ ONE (09:39)
[2024-06-20] MEDS ORDERED: INSULIN REGULAR, HUMAN 100 UNIT/ML 10 ML VIAL ONE (10:01)
[2024-06-20] MEDS ORDERED: FENTANYL PF 100MCG/2ML AMPUL ONE (10:03)
[2024-06-20] MEDS: ACETYLCYSTEINE 10% SOLN 400 MG/4 ML VIAL NEB SCH (11:00)
[2024-06-20] MEDS: ARGININE/GLUTAMINE/CALCIUM BMB 1 EACH POWD.PACK PO SCH (16:49)
[2024-06-21] VITALS (12 sets, daily range): BP systolic 101–143; BP diastolic 64–82; TEMP 98.1–98.4; O2SAT 96–100
[2024-06-21 05:09] LABS: *SPE A/G RATIO 0.7 (0.7-1.7); *SPE ALBUMIN 2.7 g/dL (2.9-4.4); *SPE ALPHA-1-GLOBULIN 0.2 g/dL (0.0-0.4); *SPE BETA GLOBULIN 1.1 g/dL (0.7-1.3); *SPE GLOBULIN, TOTAL 3.7 g/dL (2.2-3.9); *SPE M-SPIKE Not Observed g/dL (Not Observed); *SPE PROTEIN TOTAL 6.4 g/dL (6.0-8.5); *SPEGAMMA GLOBULIN 1.3 g/dL (0.4-1.8)
[2024-06-21 06:44] LABS: CALCIUM, SERUM 9.1 mg/dL (8.5-10.1); CREATININE 1.5 mg/dL (0.6-1.3); POTASSIUM 3.7 mmol/L (3.5-5.1)
[2024-06-21 07:43] LABS: BASOPHILS % (AUTO) 0.4 % (0.0-2.0); EOSINOPHILS # (AUTO) 0.1 K/uL (0.0-0.7); EOSINOPHILS % (AUTO) 1.8 % (0.0-6.0); HEMATOCRIT 33 % (33-45); HEMOGLOBIN 10.7 g/dL (11.5-14.8); LYMPHOCYTES # (AUTO) 0.8 K/uL (0.8-4.8); LYMPHOCYTES % (AUTO) 11.8 % (20.0-44.0); MEAN CORPUSCULAR HEMOGLOBIN 28 PG (26.0-33.0); MEAN CORPUSCULAR HGB CONC 32 g/dl (31.0-36.0); MEAN CORPUSCULAR VOLUME 85 fL (82-100); MONOCYTES # (AUTO) 0.6 K/uL (0.1-1.30); MONOCYTES % (AUTO) 9.7 % (2.0-12.0); NEUTROPHILS # (AUTO) 4.9 K/uL (1.8-8.9); NEUTROPHILS % (AUTO) 76.3 % (43.0-81.0); PLATELET COUNT (AUTO) 203 K/uL (150-450); RED CELL DISTRIBUTION WIDTH 17.1 % (11.5-15.0); WHITE BLOOD COUNT (AUTO) 6.5 K/uL (4.3-11.0)
[2024-06-22] VITALS (14 sets, daily range): BP systolic 123–134; BP diastolic 68–80; TEMP 97.7–98.2; O2SAT 96–100
[2024-06-22 06:39] LABS: BASOPHILS % (AUTO) 0.7 % (0.0-2.0); EOSINOPHILS # (AUTO) 0.3 K/uL (0.0-0.7); EOSINOPHILS % (AUTO) 4.9 % (0.0-6.0); HEMATOCRIT 33 % (33-45); HEMOGLOBIN 10.7 g/dL (11.5-14.8); LYMPHOCYTES # (AUTO) 0.9 K/uL (0.8-4.8); LYMPHOCYTES % (AUTO) 13.2 % (20.0-44.0); MEAN CORPUSCULAR HEMOGLOBIN 28 PG (26.0-33.0); MEAN CORPUSCULAR HGB CONC 32 g/dl (31.0-36.0); MEAN CORPUSCULAR VOLUME 86 fL (82-100); MONOCYTES # (AUTO) 0.7 K/uL (0.1-1.30); MONOCYTES % (AUTO) 10.7 % (2.0-12.0); NEUTROPHILS # (AUTO) 4.6 K/uL (1.8-8.9); NEUTROPHILS % (AUTO) 70.5 % (43.0-81.0); PLATELET COUNT (AUTO) 193 K/uL (150-450); RED BLOOD CELL COUNT(AUTO) 3.89 MIL/uL (4.0-5.2); RED CELL DISTRIBUTION WIDTH 17.5 % (11.5-15.0); WHITE BLOOD COUNT (AUTO) 6.5 K/uL (4.3-11.0)
[2024-06-22 06:44] LABS: CALCIUM, SERUM 9.1 mg/dL (8.5-10.1); CREATININE 1.7 mg/dL (0.6-1.3); MAGNESIUM 1.9 mg/dL (1.8-2.4); PHOSPHORUS 3.6 mg/dL (2.5-4.9)
[2024-06-23] VITALS (12 sets, daily range): BP systolic 117–148; BP diastolic 77–96; TEMP 98.1–98.6; O2SAT 94–100
[2024-06-23 06:23] LABS: BASOPHILS % (AUTO) 0.4 % (0.0-2.0); EOSINOPHILS # (AUTO) 0.4 K/uL (0.0-0.7); EOSINOPHILS % (AUTO) 5.4 % (0.0-6.0); HEMATOCRIT 31 % (33-45); HEMOGLOBIN 10.1 g/dL (11.5-14.8); LYMPHOCYTES # (AUTO) 0.7 K/uL (0.8-4.8); LYMPHOCYTES % (AUTO) 9.4 % (20.0-44.0); MEAN CORPUSCULAR HEMOGLOBIN 28 PG (26.0-33.0); MEAN CORPUSCULAR HGB CONC 32 g/dl (31.0-36.0); MEAN CORPUSCULAR VOLUME 86 fL (82-100); MONOCYTES # (AUTO) 0.8 K/uL (0.1-1.30); MONOCYTES % (AUTO) 10.8 % (2.0-12.0); NEUTROPHILS # (AUTO) 5.3 K/uL (1.8-8.9); PLATELET COUNT (AUTO) 198 K/uL (150-450); RED BLOOD CELL COUNT(AUTO) 3.64 MIL/uL (4.0-5.2); RED CELL DISTRIBUTION WIDTH 16.9 % (11.5-15.0); WHITE BLOOD COUNT (AUTO) 7.1 K/uL (4.3-11.0)
[2024-06-23 06:37] LABS: CALCIUM, SERUM 8.8 mg/dL (8.5-10.1); CREATININE 1.8 mg/dL (0.6-1.3); MAGNESIUM 1.8 mg/dL (1.8-2.4); PHOSPHORUS 3.4 mg/dL (2.5-4.9)
[2024-06-24] VITALS (14 sets, daily range): BP systolic 104–117; BP diastolic 63–76; TEMP 98–98.7; O2SAT 90–99
[2024-06-24 08:38] LABS: CALCIUM, SERUM 8.8 mg/dL (8.5-10.1); CREATININE 1.9 mg/dL (0.6-1.3); POTASSIUM 4.4 mmol/L (3.5-5.1)
[2024-06-25] VITALS (22 sets, daily range): BP systolic 110–135; BP diastolic 54–78; TEMP 97.6–99.7; O2SAT 96–100
[2024-06-25 06:39] LABS: BASOPHILS % (AUTO) 0.4 % (0.0-2.0); EOSINOPHILS # (AUTO) 0.3 K/uL (0.0-0.7); EOSINOPHILS % (AUTO) 4.3 % (0.0-6.0); HEMATOCRIT 32 % (33-45); HEMOGLOBIN 10.3 g/dL (11.5-14.8); LYMPHOCYTES # (AUTO) 0.9 K/uL (0.8-4.8); MEAN CORPUSCULAR HEMOGLOBIN 28 PG (26.0-33.0); MEAN CORPUSCULAR HGB CONC 32 g/dl (31.0-36.0); MEAN CORPUSCULAR VOLUME 88 fL (82-100); MONOCYTES # (AUTO) 0.7 K/uL (0.1-1.30); MONOCYTES % (AUTO) 10.3 % (2.0-12.0); NEUTROPHILS # (AUTO) 5.3 K/uL (1.8-8.9); PLATELET COUNT (AUTO) 201 K/uL (150-450); RED BLOOD CELL COUNT(AUTO) 3.63 MIL/uL (4.0-5.2); RED CELL DISTRIBUTION WIDTH 16.7 % (11.5-15.0); WHITE BLOOD COUNT (AUTO) 7.3 K/uL (4.3-11.0)
[2024-06-25 06:47] LABS: CREATININE 2.1 mg/dL (0.6-1.3); MAGNESIUM 1.6 mg/dL (1.8-2.4); PHOSPHORUS 3.5 mg/dL (2.5-4.9); POTASSIUM 4.1 mmol/L (3.5-5.1)
[2024-06-25] MEDS ORDERED: BUPIVACAINE 0.5 % PF 150 MG/30 ML VIAL ONE (08:06)
[2024-06-25] MEDS ORDERED: FENTANYL PF 250MCG/5ML AMPUL ONE (08:52)
[2024-06-25] MEDS ORDERED: HYDROMORPHONE INJ 2 MG/ML DISP.SYRIN ONE (08:52)
[2024-06-25] MEDS ORDERED: VANCOMYCIN 1 GM VIAL ONE (10:03)
[2024-06-25] MEDS ORDERED: ROPIVACAINE HCL 0.5% 5 MG/ML 30ML VIAL ONE (10:13)
[2024-06-25] MEDS ORDERED: IV NS 0.9% 1,000 ML IV PRN (10:30)
[2024-06-25] MEDS: Magnesium 1GM/D5W 100ML PREMIX 100 ML IV SCH (12:08)
[2024-06-25] MEDS: HYDROCODONE/APAP 10/325MG TABLET PO PRN (12:29)
[2024-06-25] MEDS: IV D5/0.45 NACL W/20 MEQ KCL 1L IV PRN (12:35)
[2024-06-25] MEDS: MORPHINE SULFATE INJ 2 MG/ML DISP.SYRIN IV PRN (15:05)
[2024-06-25 15:43] LABS: APPEARANCE,URINE TURBID (CLEAR); BILIRUBIN,URINE NEGATIVE (NEGATIVE); BLOOD, URINE TRACE-INTA Ery/uL (NEGATIVE); COLOR,URINE YELLOW (YELLOW); KETONES,URINE NEGATIVE (NEGATIVE); LEUKOCYTE ESTERASE ,URINE 2+ (NEGATIVE); NITRITE, URINE NEGATIVE (NEGATIVE); PROTEIN,URINE 2+ mg/dl (NEGATIVE); UGLUCOSE TRACE mg/dL (NEGATIVE); UROBILINOGEN,URINE 0.2 EU/dL (0.2)
[2024-06-25 16:00] LABS: CREATININE, URINE 74.8 MG/DL (30.0-125.0)
[2024-06-25 16:06] LABS: ADD URINE CULTURE YES; BACTERIA,URINE 1+ /HPF (None Seen); WBC,URINE 21-50 /HPF (0-3); YEAST,URINE Moderate /HPF (None Seen)
[2024-06-25] MEDS: ANCEF 1 GM/50 ML D5W IV SCH (16:29)
[2024-06-25 18:15] LABS: EOSINOPHIL,URINE Rare
[2024-06-26] VITALS (15 sets, daily range): BP systolic 124–125; BP diastolic 65–73; TEMP 98.1–99; O2SAT 96–100
[2024-06-26] MEDS ORDERED: IV PREMIX D5 1/2NS + KCL 1,000 ML IV ONE (04:16)
[2024-06-26 07:41] LABS: BASOPHILS % (AUTO) 0.4 % (0.0-2.0); EOSINOPHILS # (AUTO) 0.1 K/uL (0.0-0.7); EOSINOPHILS % (AUTO) 0.9 % (0.0-6.0); HEMATOCRIT 27 % (33-45); HEMOGLOBIN 8.7 g/dL (11.5-14.8); LYMPHOCYTES # (AUTO) 0.6 K/uL (0.8-4.8); LYMPHOCYTES % (AUTO) 7.8 % (20.0-44.0); MEAN CORPUSCULAR HEMOGLOBIN 29 PG (26.0-33.0); MEAN CORPUSCULAR HGB CONC 33 g/dl (31.0-36.0); MEAN CORPUSCULAR VOLUME 87 fL (82-100); MONOCYTES # (AUTO) 1.2 K/uL (0.1-1.30); MONOCYTES % (AUTO) 15.2 % (2.0-12.0); NEUTROPHILS # (AUTO) 5.8 K/uL (1.8-8.9); NEUTROPHILS % (AUTO) 75.7 % (43.0-81.0); PLATELET COUNT (AUTO) 197 K/uL (150-450); RED BLOOD CELL COUNT(AUTO) 3.07 MIL/uL (4.0-5.2); RED CELL DISTRIBUTION WIDTH 17.3 % (11.5-15.0); WHITE BLOOD COUNT (AUTO) 7.7 K/uL (4.3-11.0)
[2024-06-26 07:58] LABS: CALCIUM, SERUM 8.2 mg/dL (8.5-10.1); CREATININE 1.9 mg/dL (0.6-1.3); PHOSPHORUS 3.1 mg/dL (2.5-4.9); POTASSIUM 4.5 mmol/L (3.5-5.1)
[2024-06-26] MEDS: ALBUTEROL FS 2.5 MG/3 ML VIAL.NEB NEB PRN (08:31)
[2024-06-26 09:03] LABS: ANISOCYTOSIS 2+; BASOPHILS % (MANUAL) 0 % (0.0-2.0); EOSINOPHILS % (MANUAL) 1 % (0-4); LYMPHOCYTES % (MANUAL) 12 % (16-48); MONOCYTES % (MANUAL) 13 % (0-11.0); NEUTROPHILS % (MANUAL) 74 (42-76); PLATELET ESTIMATE ADEQUATE
[2024-06-26] MEDS ORDERED: IV D5/0.45 NACL W/20 MEQ KCL 1L IV SCH (10:15)
[2024-06-26] MEDS: IV D5/0.45 NACL W/20 MEQ KCL 1L IV SCH (12:00)
[2024-06-26 18:08] LABS: APPEARANCE,URINE TURBID (CLEAR); BILIRUBIN,URINE NEGATIVE (NEGATIVE); BLOOD, URINE 1+ Ery/uL (NEGATIVE); COLOR,URINE YELLOW (YELLOW); KETONES,URINE NEGATIVE (NEGATIVE); LEUKOCYTE ESTERASE ,URINE 2+ (NEGATIVE); NITRITE, URINE NEGATIVE (NEGATIVE); PROTEIN,URINE 2+ mg/dl (NEGATIVE); UGLUCOSE NEGATIVE (NEGATIVE); UROBILINOGEN,URINE 0.2 EU/dL (0.2)
[2024-06-26 18:18] LABS: CREATININE, URINE 99.1 MG/DL (30.0-125.0); URINE TOTAL PROTEIN 283.2 mg/dL (0-11.9)
[2024-06-26 18:35] LABS: ADD URINE CULTURE YES; BACTERIA,URINE 1+ /HPF (None Seen); WBC,URINE 81-100 /HPF (0-3); YEAST,URINE Moderate /HPF (None Seen)
[2024-06-26 19:24] LABS: EOSINOPHIL,URINE Rare
[2024-06-27] VITALS (15 sets, daily range): BP systolic 111–128; BP diastolic 52–78; TEMP 97.9–98.4; O2SAT 92–100
[2024-06-27] MEDS: SOD FERRIC GLUC 125 MG in IV NS 0.9% 100 ML IV SCH (14:35)
[2024-06-27 15:23] LABS: BASOPHILS % (AUTO) 0.3 % (0.0-2.0); EOSINOPHILS # (AUTO) 0.2 K/uL (0.0-0.7); EOSINOPHILS % (AUTO) 3.2 % (0.0-6.0); HEMATOCRIT 24 % (33-45); HEMOGLOBIN 7.7 g/dL (11.5-14.8); LYMPHOCYTES # (AUTO) 0.7 K/uL (0.8-4.8); LYMPHOCYTES % (AUTO) 9.3 % (20.0-44.0); MEAN CORPUSCULAR HEMOGLOBIN 28 PG (26.0-33.0); MEAN CORPUSCULAR HGB CONC 32 g/dl (31.0-36.0); MEAN CORPUSCULAR VOLUME 87 fL (82-100); MONOCYTES % (AUTO) 13.6 % (2.0-12.0); NEUTROPHILS # (AUTO) 5.4 K/uL (1.8-8.9); NEUTROPHILS % (AUTO) 73.6 % (43.0-81.0); PLATELET COUNT (AUTO) 178 K/uL (150-450); RED BLOOD CELL COUNT(AUTO) 2.73 MIL/uL (4.0-5.2); RED CELL DISTRIBUTION WIDTH 17.6 % (11.5-15.0); WHITE BLOOD COUNT (AUTO) 7.4 K/uL (4.3-11.0)
[2024-06-27 15:31] LABS: CALCIUM, SERUM 8.4 mg/dL (8.5-10.1); CREATININE 1.8 mg/dL (0.6-1.3); POTASSIUM 4.7 mmol/L (3.5-5.1)
[2024-06-28] VITALS (8 sets, daily range): BP systolic 108–115; BP diastolic 65–69; TEMP 97.9; O2SAT 94–99
[2024-06-28 06:47] LABS: BASOPHILS % (AUTO) 0.4 % (0.0-2.0); EOSINOPHILS # (AUTO) 0.3 K/uL (0.0-0.7); EOSINOPHILS % (AUTO) 4.1 % (0.0-6.0); HEMATOCRIT 25 % (33-45); LYMPHOCYTES # (AUTO) 0.9 K/uL (0.8-4.8); LYMPHOCYTES % (AUTO) 10.7 % (20.0-44.0); MEAN CORPUSCULAR HEMOGLOBIN 28 PG (26.0-33.0); MEAN CORPUSCULAR HGB CONC 32 g/dl (31.0-36.0); MEAN CORPUSCULAR VOLUME 87 fL (82-100); MONOCYTES # (AUTO) 1.2 K/uL (0.1-1.30); MONOCYTES % (AUTO) 14.5 % (2.0-12.0); NEUTROPHILS # (AUTO) 5.6 K/uL (1.8-8.9); NEUTROPHILS % (AUTO) 70.3 % (43.0-81.0); PLATELET COUNT (AUTO) 204 K/uL (150-450); RED BLOOD CELL COUNT(AUTO) 2.89 MIL/uL (4.0-5.2); RED CELL DISTRIBUTION WIDTH 17.5 % (11.5-15.0)
[2024-06-28 07:19] LABS: CALCIUM, SERUM 9.1 mg/dL (8.5-10.1); CREATININE 1.9 mg/dL (0.6-1.3); POTASSIUM 4.2 mmol/L (3.5-5.1)
[2024-06-28] MEDS ORDERED: CIPR500T5 PO (15:14)
== END 2024-06-28 18:00 | DRG 466 ==
LOC: ER 20:45 → MED 06-17 02:42
PROVIDERS: ADMIT Nurse Practitioner Acute Care
PROC: 0Y6S0Z0 Detachment at Left 2nd Toe, Complete, Open Approach (ICD-10-PCS; principal; 2024-06-20)
PROC: 0QBR0ZZ Excision of Left Toe Phalanx, Open Approach (ICD-10-PCS; 2024-06-20)
PROC: 05H933Z Insertion of Infusion Device into Right Brachial Vein, Percutaneous Approach (ICD-10-PCS; 2024-06-20)
PROC: 0SPC0JZ Removal of Synthetic Substitute from Right Knee Joint, Open Approach (ICD-10-PCS; 2024-06-25)
PROC: 0SRC0EZ Replacement of Right Knee Joint with Articulating Spacer, Open Approach (ICD-10-PCS; 2024-06-25)
DX: T84.53XA Infection and inflammatory reaction due to internal right knee prosthesis, initial encounter (principal); N17.0 Acute kidney failure with tubular necrosis; N39.0 Urinary tract infection, site not specified; E44.1 Mild protein-calorie malnutrition; D68.59 Other primary thrombophilia; I13.0 Hypertensive heart and chronic kidney disease with heart failure and stage 1 through stage 4 chronic kidney disease, or unspecified chronic kidney disease; M86.172 Other acute osteomyelitis, left ankle and foot; E87.6 Hypokalemia; E11.22 Type 2 diabetes mellitus with diabetic chronic kidney disease; N18.30 Chronic kidney disease, stage 3 unspecified; S98.142A Partial traumatic amputation of one left lesser toe, initial encounter; X58.XXXA Exposure to other specified factors, initial encounter; Y92.89 Other specified places as the place of occurrence of the external cause; I50.9 Heart failure, unspecified; E11.51 Type 2 diabetes mellitus with diabetic peripheral angiopathy without gangrene; E11.42 Type 2 diabetes mellitus with diabetic polyneuropathy; Z96.651 Presence of right artificial knee joint; Z90.49 Acquired absence of other specified parts of digestive tract; Z86.73 Personal history of transient ischemic attack (TIA), and cerebral infarction without residual deficits; M89.8X9 Other specified disorders of bone, unspecified site; G40.909 Epilepsy, unspecified, not intractable, without status epilepticus; G20.A1 Parkinson's disease without dyskinesia, without mention of fluctuations; J44.9 Chronic obstructive pulmonary disease, unspecified; Z98.890 Other specified postprocedural states; F32.A Depression, unspecified; Z89.422 Acquired absence of other left toe(s); Z89.421 Acquired absence of other right toe(s); Z88.2 Allergy status to sulfonamides; Z88.8 Allergy status to other drugs, medicaments and biological substances; Z91.018 Allergy to other foods; Z79.51 Long term (current) use of inhaled steroids; Z79.85 Long-term (current) use of injectable non-insulin antidiabetic drugs; Z79.82 Long term (current) use of aspirin; Z79.4 Long term (current) use of insulin; Z79.899 Other long term (current) drug therapy; E78.5 Hyperlipidemia, unspecified; F17.200 Nicotine dependence, unspecified, uncomplicated; G89.4 Chronic pain syndrome; K59.00 Constipation, unspecified; B96.89 Other specified bacterial agents as the cause of diseases classified elsewhere; K76.0 Fatty (change of) liver, not elsewhere classified; E88.09 Other disorders of plasma-protein metabolism, not elsewhere classified; S31.829A Unspecified open wound of left buttock, initial encounter; S31.819A Unspecified open wound of right buttock, initial encounter; Y92.9 Unspecified place or not applicable; D63.8 Anemia in other chronic diseases classified elsewhere; Z74.09 Other reduced mobility; L90.5 Scar conditions and fibrosis of skin; J45.909 Unspecified asthma, uncomplicated; M10.9 Gout, unspecified; K44.9 Diaphragmatic hernia without obstruction or gangrene; F41.9 Anxiety disorder, unspecified; K59.09 Other constipation; E66.01 Morbid (severe) obesity due to excess calories; Z68.31 Body mass index [BMI] 31.0-31.9, adult; E11.69 Type 2 diabetes mellitus with other specified complication; B96.1 Klebsiella pneumoniae [K. pneumoniae] as the cause of diseases classified elsewhere
CPT/HCPCS: 36415; 71045-TC; 71250-TC; 73564-TC; 73630-TC; 76770-TC; 80048-TC; 80053-TC; 80076-TC; 81001; 82550-TC; 82553; 82570-TC; 82962-TC; 83690-TC; 83735-TC; 83880; 83970; 84100-TC; 84155; 84165; 84300-TC; 85025-TC; 87081-TC; 87086-TC; 88305-TC; 88311-TC; 93307-TC; 94760-TC; 94761-TC; 94762-TC; 94799-TC; 97110-TC; 97112-TC; 97530-TC; A4217; A4223; A6209; A6253; A6403; A6407; C1713; G0378; J0690; J0696; J1100; J1171; J1815; J2270; J2405; J2470; J2704; J2765; J2795; J2916; J2919; J3010; J3370; J3475; J3480; J3490; J7030; J7040; J7060; L1830

== ENCOUNTER 2024-07-25 21:42 | Inpatient (IN) | payer MEDICARE, OTHER ==
[~2024-07-25] VITALS: Ht 172.7 cm; Wt 99.8 kg
[~2024-07-25 21:42] MED LIST changes: -ACET-2030 PO; +ALBU8.5H8 IH; +ALLO100T PO; -BALS60OI TP; +BISA-79 PO; +BROM1.7D9 EACHEYE; +BUDE10.2 IH; +CHOL100043 PO; -CHOL200059 PO; +CIPR500T5 PO; -COLL30OI TP; +EMPA25TA PO; -FLUT1BLS6 IH; -FLUV100T3 PO; +FURO-144 PO; +L. A1TAB10 PO; +LEVE750T10 PO; -LORA10TA7 PO; -MAGN400O6 PO; -MELA3TAB41 PO; -NA P133E RC; +NORT25CA PO; +PANT40TA2 PO; -PRED5DRO16 LEFTEYE; -SORB30SO2 PO; +TIOT18CA3 IH; +[UNRECOGNIZED DRUG - OTHER] PO
[2024-07-25 23:21] LABS: BASOPHILS % (AUTO) 0.4 % (0.0-2.0); EOSINOPHILS # (AUTO) 0.4 K/uL (0.0-0.7); HEMATOCRIT 30 % (33-45); HEMOGLOBIN 9.7 g/dL (11.5-14.8); LYMPHOCYTES # (AUTO) 1.2 K/uL (0.8-4.8); LYMPHOCYTES % (AUTO) 13.6 % (20.0-44.0); MEAN CORPUSCULAR HEMOGLOBIN 28 PG (26.0-33.0); MEAN CORPUSCULAR HGB CONC 33 g/dl (31.0-36.0); MEAN CORPUSCULAR VOLUME 86 fL (82-100); MONOCYTES # (AUTO) 0.9 K/uL (0.1-1.30); MONOCYTES % (AUTO) 9.7 % (2.0-12.0); NEUTROPHILS # (AUTO) 6.3 K/uL (1.8-8.9); NEUTROPHILS % (AUTO) 71.3 % (43.0-81.0); PLATELET COUNT (AUTO) 322 K/uL (150-450); RED BLOOD CELL COUNT(AUTO) 3.48 MIL/uL (4.0-5.2); RED CELL DISTRIBUTION WIDTH 17.9 % (11.5-15.0); WHITE BLOOD COUNT (AUTO) 8.8 K/uL (4.3-11.0)
[2024-07-25] MEDS: VANCOMYCIN 1 GM in IV D5W 250 ML IV ONE (23:30)
[2024-07-25 23:47] LABS: INR 1.01 (0.91-1.10); PARTIAL THROMBOPLASTIN TIME 26.5 SEC (24.3-34.3); PROTHROMBIN TIME 10.7 SECS (9.2-11.1)
[2024-07-25 23:55] LABS: CREATININE 2.6 mg/dL (0.6-1.3); POTASSIUM 3.9 mmol/L (3.5-5.1)
[2024-07-25 23:59] LABS: ALBUMIN 2.3 g/dL (3.4-5.0); BILIRUBIN,DIRECT 0.1 mg/dL (0.0-0.2); BILIRUBIN,TOTAL 0.2 mg/dL (0.2-1.0); TOTAL PROTEIN, SERUM 7.6 g/dL (6.4-8.2)
[2024-07-26 00:08] LABS: LACTIC ACID 0.9 mmol/L (0.4-2.0)
[2024-07-26] MEDS ORDERED: VANCOMYCIN 1 GM /D5W 250 ML PB IV ONE (00:39)
[2024-07-26] MEDS: IV NS 0.9% 1,000 ML BAG IV ONE (00:41)
[2024-07-26] MEDS ORDERED: Z GUARD REMEDY 4 OZ OINT TP PRN (01:00)
[2024-07-26] MEDS ORDERED: ONDANSETRON HCL/PF 4 MG/2 ML VIAL IVP PRN (01:00)
[2024-07-26] MEDS ORDERED: ACETAMINOPHEN 325 MG TABLET PO PRN (01:00)
[2024-07-26] MEDS: PANTOPRAZOLE 40 MG TABLET.DR PO SCH (07:30)
[2024-07-26] MEDS ORDERED: MAGN400O6 PO (08:43)
[2024-07-26] MEDS ORDERED: METH-649 PO (08:43)
[2024-07-26] MEDS ORDERED: NUTR1PAC14 PO (08:43)
[2024-07-26] MEDS ORDERED: NA P133E RC (08:43)
[2024-07-26] MEDS ORDERED: AMLO-212 PO (08:43)
[2024-07-26] MEDS ORDERED: ACET-637 PO (08:43)
[2024-07-26] MEDS ORDERED: ACET1OOV6 HHN (08:43)
[2024-07-26] MEDS ORDERED: MAG-151 PO (08:43)
[2024-07-26] MEDS ORDERED: POLY15DR31 EACHEYE (08:43)
[2024-07-26] MEDS ORDERED: GUAI5LIQ10 PO (08:43)
[2024-07-26] MEDS ORDERED: PANTOPRAZOLE 40 MG TABLET.DR PO ONE (09:12)
[2024-07-26 10:09] LABS: BASOPHILS % (AUTO) 0.2 % (0.0-2.0); EOSINOPHILS # (AUTO) 0.4 K/uL (0.0-0.7); EOSINOPHILS % (AUTO) 4.3 % (0.0-6.0); HEMATOCRIT 31 % (33-45); HEMOGLOBIN 9.9 g/dL (11.5-14.8); LYMPHOCYTES # (AUTO) 0.7 K/uL (0.8-4.8); LYMPHOCYTES % (AUTO) 7.9 % (20.0-44.0); MEAN CORPUSCULAR HEMOGLOBIN 28 PG (26.0-33.0); MEAN CORPUSCULAR HGB CONC 32 g/dl (31.0-36.0); MEAN CORPUSCULAR VOLUME 87 fL (82-100); MONOCYTES # (AUTO) 0.7 K/uL (0.1-1.30); MONOCYTES % (AUTO) 7.9 % (2.0-12.0); NEUTROPHILS # (AUTO) 7.5 K/uL (1.8-8.9); NEUTROPHILS % (AUTO) 79.7 % (43.0-81.0); PLATELET COUNT (AUTO) 329 K/uL (150-450); RED BLOOD CELL COUNT(AUTO) 3.58 MIL/uL (4.0-5.2); RED CELL DISTRIBUTION WIDTH 17.9 % (11.5-15.0); WHITE BLOOD COUNT (AUTO) 9.5 K/uL (4.3-11.0)
[2024-07-26 10:20] LABS: ALBUMIN 2.4 g/dL (3.4-5.0); MAGNESIUM 1.9 mg/dL (1.8-2.4); POTASSIUM 3.7 mmol/L (3.5-5.1)
[2024-07-26] MEDS: VANCOMYCIN HCL 1.25 GM in IV D5W 250 ML IV SCH (12:19)
[2024-07-26] MEDS: ARGININE/GLUTAMINE/CALCIUM BMB 1 EACH POWD.PACK PO SCH (13:00)
[2024-07-26] MEDS ORDERED: METHOCARBAMOL (750MG) 750 MG TABLET PO PRN (13:00)
[2024-07-26] MEDS ORDERED: ACETYLCYSTEINE 10% SOLN 400 MG/4 ML VIAL HHN PRN (13:00)
[2024-07-26] MEDS ORDERED: DEXTROSE 50%-WATER 50 ML DISP.SYRIN IV PRN (13:00)
[2024-07-26] MEDS ORDERED: ALBUTEROL FS 2.5 MG/3 ML VIAL.NEB NEB PRN (13:00)
[2024-07-26 13:09] LABS: EOSINOPHILS % (MANUAL) 4 % (0-4); LYMPHOCYTES % (MANUAL) 10 % (16-48); METAMYELOCYTES % 1 % (0-0); MONOCYTES % (MANUAL) 6 % (0-11.0); MYELOCYTES % 1 % (0-0); NEUTROPHILS % (MANUAL) 78 (42-76)
[2024-07-26 13:10] LABS: ANISOCYTOSIS 1+; PLATELET ESTIMATE ADEQUATE
[2024-07-26] MEDS: IPRATROPIUM NEB FS 0.5 MG/2.5 ML AMPUL.NEB NEB SCH (13:30)
[2024-07-26] MEDS ORDERED: GUAIFENESIN/D-METHORPHAN HB 5 ML UDC PO PRN (13:30)
[2024-07-26] MEDS: ALBUTEROL FS 2.5 MG/3 ML VIAL.NEB NEB SCH (13:30)
[2024-07-26] MEDS: FERROUS SULFATE (325 MG) 325 MG/TAB TABLET PO SCH (13:45)
[2024-07-26] MEDS: ASPIRIN EC 81 MG TABLET.DR PO SCH (13:45)
[2024-07-26] MEDS: OXCARBAZEPINE 150 MG TABLET PO SCH (13:46)
[2024-07-26] MEDS: FUROSEMIDE 40 MG TABLET PO SCH (13:46)
[2024-07-26] MEDS: GABAPENTIN 400 MG CAPSULE PO SCH (13:46)
[2024-07-26] MEDS: DOCUSATE SODIUM 100 MG CAPSULE PO SCH (13:46)
[2024-07-26] MEDS: MULTIVIT W/MINERALS 1 TAB TABLET PO SCH (13:46)
[2024-07-26] MEDS: ACIDOPHILUS/BULGARICUS 1 EACH TAB.CHEW PO SCH (13:47)
[2024-07-26] MEDS: ALLOPURINOL 100 MG TABLET PO SCH (13:47)
[2024-07-26] MEDS: AMLODIPINE BESYLATE 5 MG TABLET PO SCH (13:47)
[2024-07-26] MEDS: ASCORBIC ACID 500 MG TABLET PO SCH (13:47)
[2024-07-26] MEDS: LEVETIRACETAM (250 MG) 250 MG TABLET PO SCH (13:48)
[2024-07-26] MEDS: DULOXETINE HCL 30 MG CAPSULE.DR PO SCH (13:48)
[2024-07-26] MEDS: BUPRENORPHINE HCL 2 MG TAB.SUBL SL SCH (13:50)
[2024-07-26] MEDS: EMPAGLIFLOZIN 25 MG TABLET PO SCH (14:21)
[2024-07-26] MEDS: CARVEDILOL 6.25 MG TABLET PO SCH (17:13)
[2024-07-26] MEDS: BLOOD SUGAR DIAGNOSTIC 1 EACH STRIP IN SCH (17:37)
[2024-07-26] MEDS: INSULIN REGULAR, HUMAN 100 UNIT/ML 3 ML VIAL SQ PRN (17:50)
[2024-07-26 20:00] VITALS: BP 135/71; TEMP 98.6; O2SAT 97
[2024-07-26] MEDS: ATORVASTATIN 40 MG TABLET PO SCH (21:44)
[2024-07-26] MEDS: NORTRIPTYLINE HCL 25 MG CAPSULE PO SCH (21:44)
[2024-07-26] MEDS: MONTELUKAST SODIUM (10MG) 10 MG TABLET PO SCH (21:45)
[2024-07-26] MEDS: SENNOSIDES 8.6 MG TABLET PO SCH (21:45)
[2024-07-26] MEDS: INSULIN GLARGINE, 100 UNIT/ML CARTRIDGE SQ SCH (21:53)
[2024-07-27 07:08] LABS: BASOPHILS % (AUTO) 0.4 % (0.0-2.0); EOSINOPHILS # (AUTO) 0.4 K/uL (0.0-0.7); EOSINOPHILS % (AUTO) 5.7 % (0.0-6.0); HEMATOCRIT 29 % (33-45); HEMOGLOBIN 9.2 g/dL (11.5-14.8); LYMPHOCYTES # (AUTO) 1.2 K/uL (0.8-4.8); LYMPHOCYTES % (AUTO) 16.7 % (20.0-44.0); MEAN CORPUSCULAR HEMOGLOBIN 27 PG (26.0-33.0); MEAN CORPUSCULAR HGB CONC 32 g/dl (31.0-36.0); MEAN CORPUSCULAR VOLUME 86 fL (82-100); MONOCYTES # (AUTO) 0.9 K/uL (0.1-1.30); NEUTROPHILS # (AUTO) 4.8 K/uL (1.8-8.9); NEUTROPHILS % (AUTO) 65.2 % (43.0-81.0); PLATELET COUNT (AUTO) 288 K/uL (150-450); RED BLOOD CELL COUNT(AUTO) 3.38 MIL/uL (4.0-5.2); RED CELL DISTRIBUTION WIDTH 17.9 % (11.5-15.0); WHITE BLOOD COUNT (AUTO) 7.4 K/uL (4.3-11.0)
[2024-07-27 07:30] LABS: ALBUMIN 2.2 g/dL (3.4-5.0); BILIRUBIN,TOTAL 0.3 mg/dL (0.2-1.0); CREATININE 1.9 mg/dL (0.6-1.3); MAGNESIUM 1.9 mg/dL (1.8-2.4); POTASSIUM 3.6 mmol/L (3.5-5.1); TOTAL PROTEIN, SERUM 6.9 g/dL (6.4-8.2)
[2024-07-27] MEDS ORDERED: PANTOPRAZOLE 40 MG TABLET.DR PO SCH (07:30)
[2024-07-27 08:00] VITALS: BP 121/65; TEMP 98.1; O2SAT 100
[2024-07-27] MEDS: FELODIPINE 2.5 MG TAB.SR.24H PO SCH (09:00)
[2024-07-27] MEDS: BUDESONIDE RESPULE INH 0.5 MG/2 ML AMPUL.NEB NEB SCH (09:00)
[2024-07-27] MEDS: CHOLECALCIFEROL 1,000 UNIT TABLET (VIT D3) PO SCH (09:08)
[2024-07-27] MEDS: VANCOMYCIN 1 GM in IV D5W 250ml IV SCH (12:37)
[2024-07-27 16:00] VITALS: BP 124/79; TEMP 97.9; O2SAT 92
[2024-07-27 19:41] VITALS: O2SAT 92
[2024-07-27 19:57] VITALS: O2SAT 96
[2024-07-27 20:34] VITALS: BP 129/79; TEMP 98.6; O2SAT 94
[2024-07-28] VITALS (14 sets, daily range): BP systolic 140; BP diastolic 90; TEMP 98.2; O2SAT 94–98
[2024-07-28 08:10] LABS: BASOPHILS % (AUTO) 0.5 % (0.0-2.0); EOSINOPHILS # (AUTO) 0.3 K/uL (0.0-0.7); EOSINOPHILS % (AUTO) 3.2 % (0.0-6.0); HEMATOCRIT 32 % (33-45); HEMOGLOBIN 10.1 g/dL (11.5-14.8); LYMPHOCYTES # (AUTO) 1.3 K/uL (0.8-4.8); LYMPHOCYTES % (AUTO) 13.5 % (20.0-44.0); MEAN CORPUSCULAR HEMOGLOBIN 28 PG (26.0-33.0); MEAN CORPUSCULAR HGB CONC 32 g/dl (31.0-36.0); MEAN CORPUSCULAR VOLUME 88 fL (82-100); MONOCYTES # (AUTO) 1.1 K/uL (0.1-1.30); MONOCYTES % (AUTO) 11.1 % (2.0-12.0); NEUTROPHILS # (AUTO) 6.9 K/uL (1.8-8.9); NEUTROPHILS % (AUTO) 71.7 % (43.0-81.0); PLATELET COUNT (AUTO) 321 K/uL (150-450); RED BLOOD CELL COUNT(AUTO) 3.67 MIL/uL (4.0-5.2); RED CELL DISTRIBUTION WIDTH 17.9 % (11.5-15.0); WHITE BLOOD COUNT (AUTO) 9.6 K/uL (4.3-11.0)
[2024-07-28 08:51] LABS: CALCIUM, SERUM 9.1 mg/dL (8.5-10.1); CREATININE 2.1 mg/dL (0.6-1.3); PHOSPHORUS 5.3 mg/dL (2.5-4.9); POTASSIUM 3.9 mmol/L (3.5-5.1)
[2024-07-28] MEDS: BUDESONIDE RESPULE INH 0.5 MG/2 ML AMPUL.NEB NEB SCH (10:52)
[2024-07-28 11:08] LABS: PTH, INTACT 39 pg/mL (15-65)
[2024-07-28] MEDS ORDERED: BUDESONIDE RESPULE INH 0.5 MG/2 ML AMPUL.NEB NEB SCH (17:00)
[2024-07-28] MEDS: IV NS 0.9% 1,000 ML IV PRN (18:22)
[2024-07-29] VITALS (14 sets, daily range): BP systolic 107–140; BP diastolic 69–90; TEMP 97.5–98.6; O2SAT 94–100
[2024-07-29 08:54] LABS: BASOPHILS % (AUTO) 0.4 % (0.0-2.0); EOSINOPHILS # (AUTO) 0.3 K/uL (0.0-0.7); HEMATOCRIT 28 % (33-45); HEMOGLOBIN 9.2 g/dL (11.5-14.8); LYMPHOCYTES # (AUTO) 1.2 K/uL (0.8-4.8); LYMPHOCYTES % (AUTO) 13.8 % (20.0-44.0); MEAN CORPUSCULAR HEMOGLOBIN 28 PG (26.0-33.0); MEAN CORPUSCULAR HGB CONC 33 g/dl (31.0-36.0); MEAN CORPUSCULAR VOLUME 85 fL (82-100); MONOCYTES % (AUTO) 12.5 % (2.0-12.0); NEUTROPHILS # (AUTO) 5.8 K/uL (1.8-8.9); NEUTROPHILS % (AUTO) 69.3 % (43.0-81.0); PLATELET COUNT (AUTO) 267 K/uL (150-450); RED BLOOD CELL COUNT(AUTO) 3.25 MIL/uL (4.0-5.2); RED CELL DISTRIBUTION WIDTH 17.7 % (11.5-15.0); WHITE BLOOD COUNT (AUTO) 8.4 K/uL (4.3-11.0)
[2024-07-29 09:03] LABS: CREATININE 2.1 mg/dL (0.6-1.3); PHOSPHORUS 5.5 mg/dL (2.5-4.9); POTASSIUM 3.6 mmol/L (3.5-5.1)
[2024-07-29] MEDS: VANCOMYCIN 1 GM in IV D5W 250ml IV SCH (12:00)
[2024-07-29] MEDS: FELODIPINE 2.5 MG TAB.SR.24H PO SCH (12:06)
[2024-07-30] VITALS (13 sets, daily range): BP systolic 123–140; BP diastolic 66–77; TEMP 97.9–99.3; O2SAT 96–100
[2024-07-30] MEDS: VANCOMYCIN 1 GM in IV D5W 250ml IV SCH (00:28)
[2024-07-30 07:37] LABS: BASOPHILS % (AUTO) 0.3 % (0.0-2.0); EOSINOPHILS # (AUTO) 0.3 K/uL (0.0-0.7); EOSINOPHILS % (AUTO) 3.8 % (0.0-6.0); HEMATOCRIT 28 % (33-45); LYMPHOCYTES % (AUTO) 11.6 % (20.0-44.0); MEAN CORPUSCULAR HEMOGLOBIN 28 PG (26.0-33.0); MEAN CORPUSCULAR HGB CONC 32 g/dl (31.0-36.0); MEAN CORPUSCULAR VOLUME 86 fL (82-100); MONOCYTES # (AUTO) 0.9 K/uL (0.1-1.30); MONOCYTES % (AUTO) 10.5 % (2.0-12.0); NEUTROPHILS # (AUTO) 6.7 K/uL (1.8-8.9); NEUTROPHILS % (AUTO) 73.8 % (43.0-81.0); PLATELET COUNT (AUTO) 271 K/uL (150-450); RED BLOOD CELL COUNT(AUTO) 3.25 MIL/uL (4.0-5.2)
[2024-07-30 08:17] LABS: CALCIUM, SERUM 8.8 mg/dL (8.5-10.1); CREATININE 2.3 mg/dL (0.6-1.3); PHOSPHORUS 5.6 mg/dL (2.5-4.9); POTASSIUM 3.7 mmol/L (3.5-5.1)
[2024-07-31] VITALS (14 sets, daily range): BP systolic 118–147; BP diastolic 68–87; TEMP 97.3–98.4; O2SAT 94–100
[2024-07-31 06:08] LABS: *SPE A/G RATIO 0.8 (0.7-1.7); *SPE ALBUMIN 2.5 g/dL (2.9-4.4); *SPE ALPHA-1-GLOBULIN 0.3 g/dL (0.0-0.4); *SPE GLOBULIN, TOTAL 3.2 g/dL (2.2-3.9); *SPE M-SPIKE Not Observed g/dL (Not Observed); *SPE PROTEIN TOTAL 5.7 g/dL (6.0-8.5); *SPEGAMMA GLOBULIN 0.8 g/dL (0.4-1.8)
[2024-07-31 06:57] LABS: CALCIUM, SERUM 8.9 mg/dL (8.5-10.1); CREATININE 2.1 mg/dL (0.6-1.3); POTASSIUM 3.2 mmol/L (3.5-5.1)
[2024-07-31] MEDS: FUROSEMIDE 40 MG TABLET PO SCH (08:17)
[2024-07-31] MEDS: POTASSIUM CHLORIDE 10 MEQ TABLET.SA PO ONE (10:18)
[2024-08-01] VITALS (11 sets, daily range): BP systolic 100–128; BP diastolic 57–69; TEMP 98.1–98.6; O2SAT 95–99
[2024-08-01 07:13] LABS: CALCIUM, SERUM 9.1 mg/dL (8.5-10.1); CREATININE 2.1 mg/dL (0.6-1.3); POTASSIUM 3.6 mmol/L (3.5-5.1)
[2024-08-01 08:07] LABS: BASOPHILS % (AUTO) 0.3 % (0.0-2.0); EOSINOPHILS # (AUTO) 0.2 K/uL (0.0-0.7); EOSINOPHILS % (AUTO) 3.1 % (0.0-6.0); HEMATOCRIT 26 % (33-45); HEMOGLOBIN 8.4 g/dL (11.5-14.8); LYMPHOCYTES # (AUTO) 0.9 K/uL (0.8-4.8); LYMPHOCYTES % (AUTO) 11.9 % (20.0-44.0); MEAN CORPUSCULAR HEMOGLOBIN 28 PG (26.0-33.0); MEAN CORPUSCULAR HGB CONC 32 g/dl (31.0-36.0); MEAN CORPUSCULAR VOLUME 86 fL (82-100); MONOCYTES # (AUTO) 0.8 K/uL (0.1-1.30); NEUTROPHILS # (AUTO) 5.6 K/uL (1.8-8.9); NEUTROPHILS % (AUTO) 73.7 % (43.0-81.0); PLATELET COUNT (AUTO) 218 K/uL (150-450); RED BLOOD CELL COUNT(AUTO) 3.04 MIL/uL (4.0-5.2); RED CELL DISTRIBUTION WIDTH 17.9 % (11.5-15.0); WHITE BLOOD COUNT (AUTO) 7.7 K/uL (4.3-11.0)
[2024-08-02] VITALS (12 sets, daily range): BP systolic 119–125; BP diastolic 63–72; TEMP 97.9–98.4; O2SAT 95–98
[2024-08-02 07:24] LABS: CREATININE 2.4 mg/dL (0.6-1.3); MAGNESIUM 2.3 mg/dL (1.8-2.4); PHOSPHORUS 5.4 mg/dL (2.5-4.9); POTASSIUM 3.5 mmol/L (3.5-5.1)
[2024-08-02 07:38] LABS: CALCIUM, SERUM 9.4 mg/dL (8.5-10.1)
[2024-08-03] VITALS (12 sets, daily range): BP systolic 116–121; BP diastolic 54–69; TEMP 97.7–99.1; O2SAT 94–100
[2024-08-03 06:49] LABS: BASOPHILS % (AUTO) 0.3 % (0.0-2.0); EOSINOPHILS # (AUTO) 0.2 K/uL (0.0-0.7); EOSINOPHILS % (AUTO) 3.2 % (0.0-6.0); HEMATOCRIT 25 % (33-45); HEMOGLOBIN 8.2 g/dL (11.5-14.8); LYMPHOCYTES % (AUTO) 13.4 % (20.0-44.0); MEAN CORPUSCULAR HEMOGLOBIN 28 PG (26.0-33.0); MEAN CORPUSCULAR HGB CONC 32 g/dl (31.0-36.0); MEAN CORPUSCULAR VOLUME 86 fL (82-100); MONOCYTES # (AUTO) 0.7 K/uL (0.1-1.30); MONOCYTES % (AUTO) 8.9 % (2.0-12.0); NEUTROPHILS # (AUTO) 5.6 K/uL (1.8-8.9); NEUTROPHILS % (AUTO) 74.2 % (43.0-81.0); PLATELET COUNT (AUTO) 217 K/uL (150-450); RED BLOOD CELL COUNT(AUTO) 2.96 MIL/uL (4.0-5.2); RED CELL DISTRIBUTION WIDTH 17.2 % (11.5-15.0); WHITE BLOOD COUNT (AUTO) 7.5 K/uL (4.3-11.0)
[2024-08-03 08:00] LABS: CALCIUM, SERUM 9.2 mg/dL (8.5-10.1); CREATININE 2.6 mg/dL (0.6-1.3); POTASSIUM 3.6 mmol/L (3.5-5.1)
[2024-08-03] MEDS: VANCOMYCIN 1 GM in IV D5W 250ml IV SCH (12:32)
[2024-08-04] VITALS (12 sets, daily range): BP systolic 110–139; BP diastolic 60–83; TEMP 98.1–99; O2SAT 94–100
[2024-08-04 07:29] LABS: BASOPHILS % (AUTO) 0.4 % (0.0-2.0); EOSINOPHILS # (AUTO) 0.2 K/uL (0.0-0.7); HEMATOCRIT 25 % (33-45); HEMOGLOBIN 8.1 g/dL (11.5-14.8); LYMPHOCYTES # (AUTO) 0.9 K/uL (0.8-4.8); LYMPHOCYTES % (AUTO) 12.2 % (20.0-44.0); MEAN CORPUSCULAR HEMOGLOBIN 28 PG (26.0-33.0); MEAN CORPUSCULAR HGB CONC 33 g/dl (31.0-36.0); MEAN CORPUSCULAR VOLUME 85 fL (82-100); MONOCYTES # (AUTO) 0.6 K/uL (0.1-1.30); MONOCYTES % (AUTO) 7.5 % (2.0-12.0); NEUTROPHILS # (AUTO) 5.8 K/uL (1.8-8.9); NEUTROPHILS % (AUTO) 76.9 % (43.0-81.0); PLATELET COUNT (AUTO) 258 K/uL (150-450); RED BLOOD CELL COUNT(AUTO) 2.95 MIL/uL (4.0-5.2); RED CELL DISTRIBUTION WIDTH 17.7 % (11.5-15.0); WHITE BLOOD COUNT (AUTO) 7.6 K/uL (4.3-11.0)
[2024-08-04 07:51] LABS: CALCIUM, SERUM 9.1 mg/dL (8.5-10.1); CREATININE 2.4 mg/dL (0.6-1.3); MAGNESIUM 2.3 mg/dL (1.8-2.4); POTASSIUM 3.5 mmol/L (3.5-5.1)
[2024-08-05] VITALS (12 sets, daily range): BP systolic 133–145; BP diastolic 70–80; TEMP 98.2–98.8; O2SAT 94–98
[2024-08-05 07:10] LABS: CALCIUM, SERUM 9.9 mg/dL (8.5-10.1); CREATININE 2.6 mg/dL (0.6-1.3); MAGNESIUM 2.5 mg/dL (1.8-2.4); PHOSPHORUS 5.7 mg/dL (2.5-4.9); POTASSIUM 3.9 mmol/L (3.5-5.1)
[2024-08-05 07:13] LABS: BASOPHILS % (AUTO) 0.2 % (0.0-2.0); EOSINOPHILS % (AUTO) 0.2 % (0.0-6.0); HEMATOCRIT 29 % (33-45); HEMOGLOBIN 9.4 g/dL (11.5-14.8); LYMPHOCYTES % (AUTO) 4.2 % (20.0-44.0); MEAN CORPUSCULAR HEMOGLOBIN 27 PG (26.0-33.0); MEAN CORPUSCULAR HGB CONC 32 g/dl (31.0-36.0); MEAN CORPUSCULAR VOLUME 86 fL (82-100); MONOCYTES % (AUTO) 4.9 % (2.0-12.0); NEUTROPHILS % (AUTO) 90.5 % (43.0-81.0); PLATELET COUNT (AUTO) 310 K/uL (150-450); RED BLOOD CELL COUNT(AUTO) 3.43 MIL/uL (4.0-5.2); RED CELL DISTRIBUTION WIDTH 17.5 % (11.5-15.0); WHITE BLOOD COUNT (AUTO) 13.9 K/uL (4.3-11.0)
[2024-08-05 07:14] LABS: LYMPHOCYTES # (AUTO) 0.6 K/uL (0.8-4.8); MONOCYTES # (AUTO) 0.7 K/uL (0.1-1.30); NEUTROPHILS # (AUTO) 12.6 K/uL (1.8-8.9)
[2024-08-05] MEDS ORDERED: CEFEPIME 1 GM VIAL ONE (22:54)
[2024-08-05] MEDS: CEFEPIME 1 GM in IV D5W 50 ML IV SCH (23:54)
[2024-08-06] VITALS (13 sets, daily range): BP systolic 103–120; BP diastolic 53–68; TEMP 97.5–98.2; O2SAT 95–100
[2024-08-06 08:09] LABS: INR 1.04 (0.91-1.10); PARTIAL THROMBOPLASTIN TIME 30.2 SEC (24.3-34.3)
[2024-08-06 08:14] LABS: CALCIUM, SERUM 9.6 mg/dL (8.5-10.1); CREATININE 2.5 mg/dL (0.6-1.3); POTASSIUM 3.4 mmol/L (3.5-5.1)
[2024-08-06] MEDS ORDERED: POLYMYXIN B SULFATE 0 UNITS ONE (08:20)
[2024-08-06] MEDS ORDERED: VANCOMYCIN 1 GM VIAL ONE (08:21)
[2024-08-06] MEDS ORDERED: ANESTHESIA TRAY IN PYXIS 1 EA TRAY MC ONE (08:21)
[2024-08-06] MEDS ORDERED: MORPHINE SULFATE INJ 2 MG/ML DISP.SYRIN IV PRN (08:30)
[2024-08-06] MEDS ORDERED: HYDROMORPHONE INJ 2 MG/ML DISP.SYRIN IV PRN (08:30)
[2024-08-06] MEDS ORDERED: FENTANYL PF 100MCG/2ML AMPUL IV PRN (08:30)
[2024-08-06] MEDS ORDERED: ONDANSETRON HCL/PF 4 MG/2 ML VIAL IVP PRN (08:30)
[2024-08-06] MEDS ORDERED: ROCURONIUM BROMIDE 50 MG/5 ML ONE (08:54)
[2024-08-06] MEDS: IV D5/0.45 NACL W/20 MEQ KCL 1L IV SCH (13:10)
[2024-08-06] MEDS: HYDROCODONE/APAP 10/325MG TABLET PO PRN (13:28)
[2024-08-06] MEDS ORDERED: POTASSIUM CL. PREMIX PERIPHER. 50 ML IV SCH (14:00)
[2024-08-07] VITALS (13 sets, daily range): BP systolic 93–130; BP diastolic 59–72; TEMP 97.7–99.3; O2SAT 91–100
[2024-08-07 06:58] LABS: BASOPHILS % (AUTO) 0.3 % (0.0-2.0); EOSINOPHILS # (AUTO) 0.2 K/uL (0.0-0.7); EOSINOPHILS % (AUTO) 1.4 % (0.0-6.0); HEMATOCRIT 23 % (33-45); HEMOGLOBIN 7.2 g/dL (11.5-14.8); LYMPHOCYTES # (AUTO) 0.8 K/uL (0.8-4.8); LYMPHOCYTES % (AUTO) 6.1 % (20.0-44.0); MEAN CORPUSCULAR HEMOGLOBIN 27 PG (26.0-33.0); MEAN CORPUSCULAR HGB CONC 32 g/dl (31.0-36.0); MEAN CORPUSCULAR VOLUME 87 fL (82-100); MONOCYTES % (AUTO) 7.9 % (2.0-12.0); NEUTROPHILS # (AUTO) 10.5 K/uL (1.8-8.9); NEUTROPHILS % (AUTO) 84.3 % (43.0-81.0); PLATELET COUNT (AUTO) 292 K/uL (150-450); RED BLOOD CELL COUNT(AUTO) 2.62 MIL/uL (4.0-5.2); RED CELL DISTRIBUTION WIDTH 17.8 % (11.5-15.0); WHITE BLOOD COUNT (AUTO) 12.4 K/uL (4.3-11.0)
[2024-08-07 07:49] LABS: ALBUMIN 2.1 g/dL (3.4-5.0); BILIRUBIN,TOTAL 0.1 mg/dL (0.2-1.0); CALCIUM, SERUM 9.1 mg/dL (8.5-10.1); CREATININE 2.3 mg/dL (0.6-1.3); MAGNESIUM 2.4 mg/dL (1.8-2.4); PHOSPHORUS 3.8 mg/dL (2.5-4.9); POTASSIUM 4.3 mmol/L (3.5-5.1); TOTAL PROTEIN, SERUM 6.6 g/dL (6.4-8.2)
[2024-08-07] MEDS: BISACODYL SUPP (10 MG) 10 MG/SUPP.RECT SUPP.RECT RC PRN (08:52)
[2024-08-08] VITALS (15 sets, daily range): BP systolic 105–124; BP diastolic 64–83; TEMP 98.4–99.1; O2SAT 92–99
[2024-08-08 07:54] LABS: CALCIUM, SERUM 8.8 mg/dL (8.5-10.1); CREATININE 2.4 mg/dL (0.6-1.3); POTASSIUM 3.9 mmol/L (3.5-5.1)
[2024-08-09] VITALS (21 sets, daily range): BP systolic 96–108; BP diastolic 60–89; TEMP 98.1–98.9; O2SAT 95–100
[2024-08-09 06:41] LABS: CALCIUM, SERUM 9.2 mg/dL (8.5-10.1); CREATININE 2.7 mg/dL (0.6-1.3); POTASSIUM 4.1 mmol/L (3.5-5.1)
[2024-08-09 06:42] LABS: BASOPHILS % (AUTO) 0.5 % (0.0-2.0); EOSINOPHILS # (AUTO) 0.2 K/uL (0.0-0.7); EOSINOPHILS % (AUTO) 2.9 % (0.0-6.0); HEMATOCRIT 21 % (33-45); MEAN CORPUSCULAR HEMOGLOBIN 28 PG (26.0-33.0); MEAN CORPUSCULAR HGB CONC 32 g/dl (31.0-36.0); MEAN CORPUSCULAR VOLUME 87 fL (82-100); MONOCYTES % (AUTO) 12.8 % (2.0-12.0); NEUTROPHILS # (AUTO) 5.8 K/uL (1.8-8.9); NEUTROPHILS % (AUTO) 71.8 % (43.0-81.0); PLATELET COUNT (AUTO) 265 K/uL (150-450); RED CELL DISTRIBUTION WIDTH 18.2 % (11.5-15.0)
[2024-08-09 08:04] LABS: HEMOGLOBIN 6.7 g/dL (11.5-14.8)
[2024-08-09 10:04] LABS: EOSINOPHILS % (MANUAL) 2 % (0-4); LYMPHOCYTES % (MANUAL) 16 % (16-48); MONOCYTES % (MANUAL) 9 % (0-11.0); NEUTROPHILS % (MANUAL) 73 (42-76); PLATELET ESTIMATE ADEQUATE
[2024-08-09 10:05] LABS: ANISOCYTOSIS 1+; HYPOCHROMASIA 1+
[2024-08-09] MEDS: POLYVINYL ALCOHOL 15 ML BOTTLE EACHEYE PRN (11:00)
[2024-08-09] MEDS: POLYETHYLENE GLYCOL 3350 17 GM POWD.PACK PO PRN (11:00)
[2024-08-09] MEDS ORDERED: DAPTOMYCIN 500 MG in IV NS 0.9% 50 ML IV SCH (23:00)
[2024-08-09] MEDS: DAPTOMYCIN 500 MG in IV NS 0.9% 50 ML IV SCH (23:06)
[2024-08-10] VITALS (16 sets, daily range): BP systolic 114–161; BP diastolic 67–99; TEMP 98.2–98.4; O2SAT 94–100
[2024-08-10] MEDS: MORPHINE SULFATE INJ 4 MG/ML DISP.SYRIN IV PRN (05:43)
[2024-08-10 06:34] LABS: BASOPHILS % (AUTO) 0.7 % (0.0-2.0); EOSINOPHILS # (AUTO) 0.3 K/uL (0.0-0.7); EOSINOPHILS % (AUTO) 4.6 % (0.0-6.0); HEMATOCRIT 24 % (33-45); HEMOGLOBIN 7.6 g/dL (11.5-14.8); MEAN CORPUSCULAR HEMOGLOBIN 28 PG (26.0-33.0); MEAN CORPUSCULAR HGB CONC 32 g/dl (31.0-36.0); MEAN CORPUSCULAR VOLUME 87 fL (82-100); MONOCYTES # (AUTO) 0.8 K/uL (0.1-1.30); MONOCYTES % (AUTO) 11.8 % (2.0-12.0); NEUTROPHILS # (AUTO) 4.7 K/uL (1.8-8.9); NEUTROPHILS % (AUTO) 68.9 % (43.0-81.0); PLATELET COUNT (AUTO) 290 K/uL (150-450); RED BLOOD CELL COUNT(AUTO) 2.74 MIL/uL (4.0-5.2); RED CELL DISTRIBUTION WIDTH 17.4 % (11.5-15.0); WHITE BLOOD COUNT (AUTO) 6.8 K/uL (4.3-11.0)
[2024-08-10 06:39] LABS: CALCIUM, SERUM 9.1 mg/dL (8.5-10.1); CREATININE 3.1 mg/dL (0.6-1.3); POTASSIUM 4.1 mmol/L (3.5-5.1)
[2024-08-10] MEDS: IV NS 0.9% 1,000 ML IV PRN (08:10)
[2024-08-10] MEDS: DAPTOMYCIN 500 MG in IV NS 0.9% 50 ML IV SCH (09:14)
[2024-08-11] VITALS (12 sets, daily range): BP systolic 114–123; BP diastolic 64–99; TEMP 97.8–98.2; O2SAT 92–100
[2024-08-11 08:13] LABS: BASOPHILS % (AUTO) 0.6 % (0.0-2.0); EOSINOPHILS # (AUTO) 0.3 K/uL (0.0-0.7); EOSINOPHILS % (AUTO) 4.7 % (0.0-6.0); HEMATOCRIT 23 % (33-45); HEMOGLOBIN 7.6 g/dL (11.5-14.8); LYMPHOCYTES # (AUTO) 0.9 K/uL (0.8-4.8); LYMPHOCYTES % (AUTO) 14.7 % (20.0-44.0); MEAN CORPUSCULAR HEMOGLOBIN 31 PG (26.0-33.0); MEAN CORPUSCULAR HGB CONC 34 g/dl (31.0-36.0); MEAN CORPUSCULAR VOLUME 91 fL (82-100); MONOCYTES # (AUTO) 0.8 K/uL (0.1-1.30); MONOCYTES % (AUTO) 13.1 % (2.0-12.0); NEUTROPHILS # (AUTO) 4.2 K/uL (1.8-8.9); NEUTROPHILS % (AUTO) 66.9 % (43.0-81.0); PLATELET COUNT (AUTO) 311 K/uL (150-450); RED CELL DISTRIBUTION WIDTH 17.8 % (11.5-15.0); WHITE BLOOD COUNT (AUTO) 6.3 K/uL (4.3-11.0)
[2024-08-11 08:29] LABS: CALCIUM, SERUM 9.2 mg/dL (8.5-10.1); CREATININE 2.3 mg/dL (0.6-1.3)
[2024-08-11 09:13] LABS: IRON, SERUM 25 ug/dl (50-175); TOTAL IRON BINDING CAPACITY 133 ug/dl (250-450)
[2024-08-11 11:55] LABS: ADD URINE CULTURE YES; APPEARANCE,URINE TURBID (CLEAR); BACTERIA,URINE Moderate /HPF (None Seen); BILIRUBIN,URINE NEGATIVE (NEGATIVE); BLOOD, URINE TRACE-INTA Ery/uL (NEGATIVE); COLOR,URINE DARK YELLOW (YELLOW); EOSINOPHIL,URINE None Seen; KETONES,URINE NEGATIVE (NEGATIVE); LEUKOCYTE ESTERASE ,URINE 2+ (NEGATIVE); NITRITE, URINE NEGATIVE (NEGATIVE); PH,URINE 5.5 (5.0-8.0); PROTEIN,URINE 2+ mg/dl (NEGATIVE); SQUAMOUS EPITHELIAL CELL,UR Few /HPF (None Seen); UGLUCOSE 2+ mg/dL (NEGATIVE); UROBILINOGEN,URINE 0.2 EU/dL (0.2); WBC,URINE 51-80 /HPF (0-3)
[2024-08-11 12:06] LABS: CREATININE, URINE 71.8 MG/DL (30.0-125.0); URINE TOTAL PROTEIN 170.2 mg/dL (0-11.9)
[2024-08-12] VITALS (13 sets, daily range): BP systolic 107–139; BP diastolic 65–75; TEMP 97.3–98.2; O2SAT 93–100
[2024-08-12 06:24] LABS: BASOPHILS % (AUTO) 0.6 % (0.0-2.0); EOSINOPHILS # (AUTO) 0.3 K/uL (0.0-0.7); EOSINOPHILS % (AUTO) 4.5 % (0.0-6.0); HEMATOCRIT 22 % (33-45); HEMOGLOBIN 7.2 g/dL (11.5-14.8); LYMPHOCYTES # (AUTO) 0.9 K/uL (0.8-4.8); LYMPHOCYTES % (AUTO) 12.8 % (20.0-44.0); MEAN CORPUSCULAR HEMOGLOBIN 29 PG (26.0-33.0); MEAN CORPUSCULAR HGB CONC 32 g/dl (31.0-36.0); MEAN CORPUSCULAR VOLUME 89 fL (82-100); MONOCYTES # (AUTO) 0.9 K/uL (0.1-1.30); MONOCYTES % (AUTO) 12.6 % (2.0-12.0); NEUTROPHILS # (AUTO) 4.9 K/uL (1.8-8.9); NEUTROPHILS % (AUTO) 69.5 % (43.0-81.0); PLATELET COUNT (AUTO) 361 K/uL (150-450); RED CELL DISTRIBUTION WIDTH 17.7 % (11.5-15.0)
[2024-08-12 07:02] LABS: CREATININE 2.1 mg/dL (0.6-1.3); POTASSIUM 3.9 mmol/L (3.5-5.1)
[2024-08-12 10:21] LABS: BAND % (MANUAL) 1 % (0.0-5.0); BASOPHILS % (MANUAL) 0 % (0.0-2.0); EOSINOPHILS % (MANUAL) 4 % (0-4); LYMPHOCYTES % (MANUAL) 10 % (16-48); MONOCYTES % (MANUAL) 10 % (0-11.0); MYELOCYTES % 2 % (0-0); NEUTROPHILS % (MANUAL) 73 (42-76); PLATELET ESTIMATE ADEQUATE
[2024-08-12 10:22] LABS: ANISOCYTOSIS 1+
[2024-08-13] VITALS (13 sets, daily range): BP systolic 91–119; BP diastolic 44–65; TEMP 97.9–98.4; O2SAT 95–100
[2024-08-13 07:10] LABS: BASOPHILS % (AUTO) 0.6 % (0.0-2.0); EOSINOPHILS # (AUTO) 0.3 K/uL (0.0-0.7); EOSINOPHILS % (AUTO) 3.9 % (0.0-6.0); HEMATOCRIT 21 % (33-45); LYMPHOCYTES # (AUTO) 0.9 K/uL (0.8-4.8); LYMPHOCYTES % (AUTO) 14.3 % (20.0-44.0); MEAN CORPUSCULAR HEMOGLOBIN 29 PG (26.0-33.0); MEAN CORPUSCULAR HGB CONC 32 g/dl (31.0-36.0); MEAN CORPUSCULAR VOLUME 90 fL (82-100); MONOCYTES # (AUTO) 0.9 K/uL (0.1-1.30); MONOCYTES % (AUTO) 14.3 % (2.0-12.0); NEUTROPHILS # (AUTO) 4.3 K/uL (1.8-8.9); NEUTROPHILS % (AUTO) 66.9 % (43.0-81.0); PLATELET COUNT (AUTO) 341 K/uL (150-450); RED BLOOD CELL COUNT(AUTO) 2.35 MIL/uL (4.0-5.2); RED CELL DISTRIBUTION WIDTH 17.7 % (11.5-15.0); WHITE BLOOD COUNT (AUTO) 6.4 K/uL (4.3-11.0)
[2024-08-13 07:13] LABS: ALBUMIN 1.8 g/dL (3.4-5.0); BILIRUBIN,TOTAL 0.2 mg/dL (0.2-1.0); CALCIUM, SERUM 8.5 mg/dL (8.5-10.1); CREATININE 2.2 mg/dL (0.6-1.3); MAGNESIUM 2.2 mg/dL (1.8-2.4); PHOSPHORUS 4.5 mg/dL (2.5-4.9); POTASSIUM 3.7 mmol/L (3.5-5.1); TOTAL PROTEIN, SERUM 6.1 g/dL (6.4-8.2)
[2024-08-13 08:46] LABS: HEMOGLOBIN 6.8 g/dL (11.5-14.8)
[2024-08-14] VITALS (16 sets, daily range): BP systolic 100–124; BP diastolic 49–83; TEMP 95.6–98.8; O2SAT 94–100
[2024-08-14 02:19] LABS: BAND % (MANUAL) 1 % (0.0-5.0); EOSINOPHILS % (MANUAL) 5 % (0-4); LYMPHOCYTES % (MANUAL) 14 % (16-48); MONOCYTES % (MANUAL) 13 % (0-11.0); MYELOCYTES % 2 % (0-0); NEUTROPHILS % (MANUAL) 65 (42-76); PLATELET ESTIMATE ADEQUATE
[2024-08-14 02:20] LABS: ANISOCYTOSIS 1+
== END 2024-08-14 18:45 | DRG 856 ==
LOC: ER 21:47 → MED 07-26 06:03 → UNDOADMIN 07-26 06:03 → TRANSITION 07-26 06:03
PROVIDERS: ADMIT Nurse Practitioner Family
PROC: 0SPC0JZ Removal of Synthetic Substitute from Right Knee Joint, Open Approach (ICD-10-PCS; principal; 2024-08-06)
PROC: 0SRC0EZ Replacement of Right Knee Joint with Articulating Spacer, Open Approach (ICD-10-PCS; 2024-08-06)
PROC: 05HD33Z Insertion of Infusion Device into Right Cephalic Vein, Percutaneous Approach (ICD-10-PCS; 2024-08-08)
PROC: 30233N1 Transfusion of Nonautologous Red Blood Cells into Peripheral Vein, Percutaneous Approach (ICD-10-PCS; 2024-08-09)
DX: T81.41XA Infection following a procedure, superficial incisional surgical site, initial encounter (principal); N17.0 Acute kidney failure with tubular necrosis; D68.59 Other primary thrombophilia; L03.115 Cellulitis of right lower limb; N17.9 Acute kidney failure, unspecified; N18.4 Chronic kidney disease, stage 4 (severe); I12.9 Hypertensive chronic kidney disease with stage 1 through stage 4 chronic kidney disease, or unspecified chronic kidney disease; G89.4 Chronic pain syndrome; E11.22 Type 2 diabetes mellitus with diabetic chronic kidney disease; Y83.8 Other surgical procedures as the cause of abnormal reaction of the patient, or of later complication, without mention of misadventure at the time of the procedure; Y92.129 Unspecified place in nursing home as the place of occurrence of the external cause; G40.909 Epilepsy, unspecified, not intractable, without status epilepticus; G20.A1 Parkinson's disease without dyskinesia, without mention of fluctuations; J44.9 Chronic obstructive pulmonary disease, unspecified; Z86.73 Personal history of transient ischemic attack (TIA), and cerebral infarction without residual deficits; E11.40 Type 2 diabetes mellitus with diabetic neuropathy, unspecified; D64.9 Anemia, unspecified; Z98.890 Other specified postprocedural states; F32.A Depression, unspecified; Z89.422 Acquired absence of other left toe(s); Z89.421 Acquired absence of other right toe(s); Z88.2 Allergy status to sulfonamides; Z88.8 Allergy status to other drugs, medicaments and biological substances; Z91.018 Allergy to other foods; Z79.51 Long term (current) use of inhaled steroids; Z79.84 Long term (current) use of oral hypoglycemic drugs; Z79.899 Other long term (current) drug therapy; Z79.85 Long-term (current) use of injectable non-insulin antidiabetic drugs; Z79.82 Long term (current) use of aspirin; Z79.4 Long term (current) use of insulin; K21.9 Gastro-esophageal reflux disease without esophagitis; K59.00 Constipation, unspecified; F41.9 Anxiety disorder, unspecified; E78.5 Hyperlipidemia, unspecified; E88.09 Other disorders of plasma-protein metabolism, not elsewhere classified; F17.200 Nicotine dependence, unspecified, uncomplicated; Z68.33 Body mass index [BMI] 33.0-33.9, adult; E66.09 Other obesity due to excess calories; E86.9 Volume depletion, unspecified; E88.9 Metabolic disorder, unspecified; Z87.828 Personal history of other (healed) physical injury and trauma
CPT/HCPCS: 36415; 71045-TC; 73564-TC; 73590-TC; 76770-TC; 80048-TC; 80053-TC; 80076-TC; 80202-TC; 81001; 82040-TC; 82550-TC; 82570-TC; 82962-TC; 83540-TC; 83605-TC; 83735-TC; 83970; 84100-TC; 84155; 84165; 84300-TC; 85025-TC; 85610-TC; 85730-TC; 86140-TC; 86850; 86850-TC; 86870; 86880; 86900; 86901; 87040-TC; 94760-TC; 94761-TC; 94762-TC; 94799-TC; A4217; A4223; A6253; A6403; A6407; G0378; J0692; J0878; J1100; J1815; J2270; J2405; J2704; J3010; J3370; J3480; J3490; J7030; J7040; J7050; J7060; P9016

== ENCOUNTER 2024-08-31 12:31 | Inpatient (IN) | payer MEDICARE, OTHER ==
[~2024-08-31] VITALS: Ht 162.6 cm; Wt 115.7 kg
[2024-08-31] VITALS (22 sets, daily range): BP systolic 133–156; BP diastolic 69–80; TEMP 99.9; O2SAT 95–99
[~2024-08-31 12:31] MED LIST changes: +ACET-637 PO; -ACET-868 PO; +ACET1OOV6 HHN; +AMLO-212 PO; -BISA-79 PO; -CIPR500T5 PO; +GUAI5LIQ10 PO; +MAG-151 PO; +MAGN400O6 PO; +METH-649 PO; +NA P133E RC; +NUTR1PAC14 PO; +POLY15DR31 EACHEYE; -[UNRECOGNIZED DRUG - OTHER] PO
[2024-08-31] MEDS: IV NS 0.9% 1,000 ML BAG IV ONE (12:50)
[2024-08-31] MEDS ORDERED: PIPERACI/TAZO 3.375GM/D5W 50ML PB IV ONE (13:02)
[2024-08-31 13:08] LABS: ABG BASE EXCESS -5.8 mmol/L (-2.0-3.0); ABG OXYGEN SATURATION 93.4 % (94.0-98.0); ABG PCO2 37.6 mmHg (32.0-45.0); ABG PH 7.333 (7.350-7.450); ABG PO2 80.6 mmHg (83.0-108.0); ABG TOTAL HEMOGLOBIN 8.1 G/dL (12.0-16.0); COHb 0.3 % (0.5-1.5); MetHb 0.3 % (0.0-1.5); O2Hb 92.8 % (94.0-97.0); SITE, ABG RIGHT RADIAL
[2024-08-31 13:11] LABS: BASOPHILS % (AUTO) 0.3 % (0.0-2.0); HEMATOCRIT 26 % (33-45); HEMOGLOBIN 7.5 g/dL (11.5-14.8); LYMPHOCYTES # (AUTO) 0.6 K/uL (0.8-4.8); LYMPHOCYTES % (AUTO) 3.7 % (20.0-44.0); MEAN CORPUSCULAR HEMOGLOBIN 27 PG (26.0-33.0); MEAN CORPUSCULAR HGB CONC 29 g/dl (31.0-36.0); MEAN CORPUSCULAR VOLUME 94 fL (82-100); MONOCYTES # (AUTO) 0.9 K/uL (0.1-1.30); NEUTROPHILS # (AUTO) 13.9 K/uL (1.8-8.9); PLATELET COUNT (AUTO) 376 K/uL (150-450); RED BLOOD CELL COUNT(AUTO) 2.77 MIL/uL (4.0-5.2); RED CELL DISTRIBUTION WIDTH 19.3 % (11.5-15.0); WHITE BLOOD COUNT (AUTO) 15.5 K/uL (4.3-11.0)
[2024-08-31] MEDS: PIPERACILLIN /TAZOBACTAM 3.375 G in IV D5W 50 ML IV ONE (13:14)
[2024-08-31 13:32] LABS: ALANINE AMINOTRANSFERASE 17 U/L (12-78); ALKALINE PHOSPHATASE 476 U/L (46-116); ASPARTATE AMINOTRANSFERASE 33 U/L (15-37); BILIRUBIN,DIRECT 0.2 mg/dL (0.0-0.2); BILIRUBIN,TOTAL 0.4 mg/dL (0.2-1.0); CALCIUM, SERUM 8.8 mg/dL (8.5-10.1); CARBON DIOXIDE 19 mmol/L (21-32); CHLORIDE 122 mmol/L (98-107); GLUCOSE 216 mg/dL (74-106); POTASSIUM 3.6 mmol/L (3.5-5.1); TOTAL PROTEIN, SERUM 7.3 g/dL (6.4-8.2); UREA NITROGEN, BLOOD 55 mg/dL (7-18)
[2024-08-31 13:34] LABS: INR 1.22 (0.91-1.10); PARTIAL THROMBOPLASTIN TIME 24.6 SEC (24.3-34.3); PROTHROMBIN TIME 12.8 SECS (9.2-11.1)
[2024-08-31 13:35] LABS: LACTIC ACID 0.8 mmol/L (0.4-2.0)
[2024-08-31] MEDS ORDERED: VANCOMYCIN 1 GM /D5W 250 ML PB IV ONE (13:40)
[2024-08-31] MEDS: VANCOMYCIN 1 GM in IV D5W 250 ML IV ONE (13:45)
[2024-08-31] MEDS ORDERED: IPRA3AMP22 IH (13:58)
[2024-08-31] MEDS ORDERED: ALBU2.5V38 IH (13:58)
[2024-08-31] MEDS ORDERED: DAPT500V2 IV (13:58)
[2024-08-31] MEDS ORDERED: BUDE0.5A4 IH (13:58)
[2024-08-31] MEDS ORDERED: ACET-868 PO (13:58)
[2024-08-31] MEDS ORDERED: CALA113P TP (13:58)
[2024-08-31] MEDS ORDERED: DAPA10TA PO (13:58)
[2024-08-31 14:10] LABS: ALBUMIN 1.6 g/dL (3.4-5.0)
[2024-08-31 14:16] LABS: SODIUM SERUM 156 mmol/L (136-145)
[2024-08-31] MEDS ORDERED: ALBUTEROL FS 2.5 MG/3 ML VIAL.NEB IH PRN (15:00)
[2024-08-31] MEDS ORDERED: DAPTOMYCIN 500 MG/VIAL VIAL IV SCH (15:00)
[2024-08-31] MEDS ORDERED: Z GUARD REMEDY 4 OZ OINT TP PRN (15:00)
[2024-08-31 15:58] LABS: APPEARANCE,URINE TURBID (CLEAR); BILIRUBIN,URINE NEGATIVE (NEGATIVE); BLOOD, URINE 1+ Ery/uL (NEGATIVE); COLOR,URINE YELLOW (YELLOW); KETONES,URINE TRACE mg/dL (NEGATIVE); LEUKOCYTE ESTERASE ,URINE 2+ (NEGATIVE); NITRITE, URINE NEGATIVE (NEGATIVE); PROTEIN,URINE 3+ mg/dl (NEGATIVE); UGLUCOSE 3+ mg/dL (NEGATIVE); UROBILINOGEN,URINE 0.2 EU/dL (0.2)
[2024-08-31 16:06] LABS: AMPHETAMINE, URINE NEGATIVE (NEGATIVE); BARBITURATE, URINE NEGATIVE (NEGATIVE); BENZODIAZEPINE, URINE NEGATIVE (NEGATIVE); CANNABINOID, URINE NEGATIVE (NEGATIVE); COCCAINE, URINE NEGATIVE (NEGATIVE); OPIATE, URINE NEGATIVE (NEGATIVE); PHENCYCLIDINE SCREEN,URINE NEGATIVE (NEGATIVE)
[2024-08-31 16:10] LABS: ADD URINE CULTURE YES; BACTERIA,URINE Many /HPF (None Seen); WBC,URINE 51-80 /HPF (0-3)
[2024-08-31 16:11] LABS: YEAST,URINE Moderate /HPF (None Seen)
[2024-08-31] MEDS ORDERED: DOCUSATE SODIUM 100 MG CAPSULE PO SCH (17:00)
[2024-08-31] MEDS ORDERED: METHOCARBAMOL (500MG) 500 MG TABLET PO PRN (18:30)
[2024-08-31] MEDS: ACIDOPHILUS/BULGARICUS 1 EACH TAB.CHEW PO SCH (19:10)
[2024-08-31] MEDS: DOCUSATE SODIUM 100 MG CAPSULE PO SCH (19:10)
[2024-08-31] MEDS: DULOXETINE HCL 30 MG CAPSULE.DR PO SCH (19:10)
[2024-08-31] MEDS: BUPRENORPHINE HCL 2 MG TAB.SUBL SL SCH (19:10)
[2024-08-31] MEDS: ASCORBIC ACID 500 MG TABLET PO SCH (19:10)
[2024-08-31] MEDS: CARVEDILOL 6.25 MG TABLET PO SCH (19:10)
[2024-08-31] MEDS: GABAPENTIN 400 MG CAPSULE PO SCH (19:10)
[2024-08-31] MEDS: BUDESONIDE RESPULE INH 0.5 MG/2 ML AMPUL.NEB IH SCH (19:50)
[2024-08-31] MEDS: LEVETIRACETAM (250 MG) 250 MG TABLET PO SCH (21:00)
[2024-08-31] MEDS: SENNOSIDES 8.6 MG TABLET PO SCH (22:00)
[2024-08-31] MEDS: MONTELUKAST SODIUM (10MG) 10 MG TABLET PO SCH (22:00)
[2024-08-31] MEDS: ATORVASTATIN 40 MG TABLET PO SCH (22:00)
[2024-08-31] MEDS ORDERED: NORTRIPTYLINE HCL 25 MG CAPSULE PO SCH (22:00)
[2024-08-31] MEDS: FLUCONAZOLE IN NS 100 MG in PREMIX 1 EA IV SCH (22:08)
[2024-08-31] MEDS: HEPARIN SODIUM, PORCINE 5000 UNITS/1 ML VIAL SQ SCH (22:18)
[2024-08-31] MEDS: MEROPENEM 500 MG in IV NS 0.9% 50 ML IV SCH (23:09)
[2024-08-31] MEDS: LINEZOLID RTU BAG 600 MG in PREMIX 1 EA IV SCH (23:44)
[2024-09-01] VITALS (24 sets, daily range): BP systolic 146–167; BP diastolic 76–95; TEMP 98.2–99.9; O2SAT 95–99
[2024-09-01 05:04] LABS: BASOPHILS % (AUTO) 0.1 % (0.0-2.0); HEMATOCRIT 24 % (33-45); HEMOGLOBIN 7.3 g/dL (11.5-14.8); LYMPHOCYTES # (AUTO) 0.6 K/uL (0.8-4.8); LYMPHOCYTES % (AUTO) 3.9 % (20.0-44.0); MEAN CORPUSCULAR HEMOGLOBIN 28 PG (26.0-33.0); MEAN CORPUSCULAR HGB CONC 31 g/dl (31.0-36.0); MEAN CORPUSCULAR VOLUME 91 fL (82-100); MONOCYTES # (AUTO) 0.9 K/uL (0.1-1.30); MONOCYTES % (AUTO) 5.7 % (2.0-12.0); NEUTROPHILS # (AUTO) 14.1 K/uL (1.8-8.9); NEUTROPHILS % (AUTO) 90.3 % (43.0-81.0); PLATELET COUNT (AUTO) 363 K/uL (150-450); RED BLOOD CELL COUNT(AUTO) 2.59 MIL/uL (4.0-5.2); RED CELL DISTRIBUTION WIDTH 19.1 % (11.5-15.0); WHITE BLOOD COUNT (AUTO) 15.6 K/uL (4.3-11.0)
[2024-09-01 05:17] LABS: ABG BASE EXCESS -6.3 mmol/L (-2.0-3.0); ABG OXYGEN SATURATION 95.7 % (94.0-98.0); ABG PCO2 39.4 mmHg (32.0-45.0); ABG TOTAL HEMOGLOBIN 8.5 G/dL (12.0-16.0); COHb 0.3 % (0.5-1.5); MetHb 0.2 % (0.0-1.5); O2Hb 95.2 % (94.0-97.0); SITE, ABG RIGHT RADIAL
[2024-09-01 05:23] LABS: CALCIUM, SERUM 9.3 mg/dL (8.5-10.1); MAGNESIUM 2.6 mg/dL (1.8-2.4); PHOSPHORUS 4.5 mg/dL (2.5-4.9); POTASSIUM 3.3 mmol/L (3.5-5.1)
[2024-09-01] MEDS: IV NS 0.9% 1,000 ML IV PRN (05:56)
[2024-09-01] MEDS ORDERED: DEXTROSE 50%-WATER 50 ML DISP.SYRIN IV PRN (06:00)
[2024-09-01] MEDS: BLOOD SUGAR DIAGNOSTIC 1 EACH STRIP IN SCH (06:12)
[2024-09-01] MEDS: INSULIN REGULAR, HUMAN 100 UNIT/ML 3 ML VIAL SQ PRN (06:14)
[2024-09-01] MEDS: PANTOPRAZOLE 40 MG TABLET.DR PO SCH (07:22)
[2024-09-01] MEDS: ASPIRIN EC 81 MG TABLET.DR PO SCH (08:19)
[2024-09-01] MEDS: FERROUS SULFATE (325 MG) 325 MG/TAB TABLET PO SCH (08:23)
[2024-09-01] MEDS: DAPAGLIFLOZIN PROPANEDIOL 10 MG TABLET PO SCH (08:23)
[2024-09-01] MEDS: AMLODIPINE BESYLATE 5 MG TABLET PO SCH (08:24)
[2024-09-01] MEDS: ALLOPURINOL 100 MG TABLET PO SCH (08:25)
[2024-09-01] MEDS: OXCARBAZEPINE 150 MG TABLET PO SCH (08:25)
[2024-09-01] MEDS ORDERED: DAPTOMYCIN 500 MG in IV NS 0.9% 50 ML IV SCH (09:00)
[2024-09-01] MEDS: NITROGLYCERIN 30 GM TUBE TOP SCH (09:03)
[2024-09-01] MEDS ORDERED: NITROGLYCERIN 30 GM TUBE TP SCH (10:00)
[2024-09-01] MEDS: IV D5W 1,000 ML IV ONE (11:52)
[2024-09-01 12:24] LABS: IRON, SERUM 13 ug/dl (50-175); TOTAL IRON BINDING CAPACITY 106 ug/dl (250-450)
[2024-09-01 12:59] LABS: FERRITIN 1375 ng/mL (8-388)
[2024-09-01] MEDS: POTASSIUM CL. PREMIX PERIPHER. 50 ML IV SCH (13:09)
[2024-09-01 17:15] LABS: CREATININE 1.8 mg/dL (0.6-1.3)
[2024-09-01] MEDS: IV 1/2NS 1000 ML 1,000 ML IV PRN (18:45)
[2024-09-01] MEDS: ONDANSETRON HCL/PF 4 MG/2 ML VIAL IVP PRN (18:50)
[2024-09-01 20:08] LABS: CREATININE, URINE 29.4 MG/DL (30.0-125.0)
[2024-09-01] MEDS: NITROGLYCERIN 30 GM TUBE TP SCH (21:33)
[2024-09-01] MEDS: ACETAMINOPHEN 325 MG TABLET PO PRN (21:34)
[2024-09-02] VITALS (7 sets, daily range): BP systolic 149–171; BP diastolic 75–90; TEMP 98.2–100; O2SAT 90–99
[2024-09-02] MEDS: POTASSIUM CL. PREMIX PERIPHER. 50 ML IV SCH (08:56)
[2024-09-02 10:13] LABS: BASOPHILS % (AUTO) 0.1 % (0.0-2.0); EOSINOPHILS # (AUTO) 0.1 K/uL (0.0-0.7); EOSINOPHILS % (AUTO) 0.7 % (0.0-6.0); HEMATOCRIT 28 % (33-45); HEMOGLOBIN 8.2 g/dL (11.5-14.8); LYMPHOCYTES # (AUTO) 0.7 K/uL (0.8-4.8); LYMPHOCYTES % (AUTO) 5.4 % (20.0-44.0); MEAN CORPUSCULAR HEMOGLOBIN 27 PG (26.0-33.0); MEAN CORPUSCULAR HGB CONC 30 g/dl (31.0-36.0); MEAN CORPUSCULAR VOLUME 91 fL (82-100); MONOCYTES # (AUTO) 0.8 K/uL (0.1-1.30); NEUTROPHILS # (AUTO) 11.8 K/uL (1.8-8.9); NEUTROPHILS % (AUTO) 87.8 % (43.0-81.0); PLATELET COUNT (AUTO) 478 K/uL (150-450); RED BLOOD CELL COUNT(AUTO) 3.02 MIL/uL (4.0-5.2); RED CELL DISTRIBUTION WIDTH 19.5 % (11.5-15.0); WHITE BLOOD COUNT (AUTO) 13.4 K/uL (4.3-11.0)
[2024-09-02 10:27] LABS: CALCIUM, SERUM 8.9 mg/dL (8.5-10.1); CREATININE 1.7 mg/dL (0.6-1.3); POTASSIUM 3.2 mmol/L (3.5-5.1)
[2024-09-02] MEDS: IV D5W 1,000 ML IV PRN (11:29)
[2024-09-02 13:00] LABS: LYMPHOCYTES % (MANUAL) 7 % (16-48); MONOCYTES % (MANUAL) 4 % (0-11.0); NEUTROPHILS % (MANUAL) 89 (42-76)
[2024-09-02 13:01] LABS: ANISOCYTOSIS 1+; PLATELET ESTIMATE ADEQUATE
[2024-09-02] MEDS: SOD FERRIC GLUC 125 MG in IV NS 0.9% 100 ML IV SCH (14:50)
[2024-09-03 07:57] VITALS: O2SAT 95
[2024-09-03 08:00] VITALS: BP 164/85; TEMP 98.2; O2SAT 94
[2024-09-03 08:42] LABS: ALBUMIN 1.6 g/dL (3.4-5.0); BILIRUBIN,TOTAL 0.3 mg/dL (0.2-1.0); CALCIUM, SERUM 8.9 mg/dL (8.5-10.1); CREATININE 1.6 mg/dL (0.6-1.3); POTASSIUM 3.6 mmol/L (3.5-5.1); TOTAL PROTEIN, SERUM 7.2 g/dL (6.4-8.2)
[2024-09-03 08:50] LABS: BASOPHILS % (AUTO) 0.3 % (0.0-2.0); EOSINOPHILS # (AUTO) 0.3 K/uL (0.0-0.7); HEMATOCRIT 26 % (33-45); HEMOGLOBIN 7.8 g/dL (11.5-14.8); LYMPHOCYTES # (AUTO) 1.1 K/uL (0.8-4.8); LYMPHOCYTES % (AUTO) 8.5 % (20.0-44.0); MEAN CORPUSCULAR HEMOGLOBIN 27 PG (26.0-33.0); MEAN CORPUSCULAR HGB CONC 29 g/dl (31.0-36.0); MEAN CORPUSCULAR VOLUME 92 fL (82-100); MONOCYTES # (AUTO) 0.7 K/uL (0.1-1.30); MONOCYTES % (AUTO) 5.7 % (2.0-12.0); NEUTROPHILS # (AUTO) 10.8 K/uL (1.8-8.9); NEUTROPHILS % (AUTO) 83.5 % (43.0-81.0); PLATELET COUNT (AUTO) 443 K/uL (150-450); RED BLOOD CELL COUNT(AUTO) 2.87 MIL/uL (4.0-5.2); RED CELL DISTRIBUTION WIDTH 19.6 % (11.5-15.0); WHITE BLOOD COUNT (AUTO) 12.9 K/uL (4.3-11.0)
[2024-09-03 09:53] LABS: BAND % (MANUAL) 2 % (0.0-5.0); EOSINOPHILS % (MANUAL) 1 % (0-4); LYMPHOCYTES % (MANUAL) 8 % (16-48); MONOCYTES % (MANUAL) 7 % (0-11.0); MYELOCYTES % 2 % (0-0)
[2024-09-03 09:54] LABS: ANISOCYTOSIS 2+; NEUTROPHILS % (MANUAL) 80 (42-76); PLATELET ESTIMATE ADEQUATE
[2024-09-03] MEDS: IV D5W 1,000 ML IV ONE (10:36)
[2024-09-03 15:42] LABS: CALCIUM, SERUM 8.5 mg/dL (8.5-10.1); CREATININE 1.6 mg/dL (0.6-1.3); POTASSIUM 3.6 mmol/L (3.5-5.1)
[2024-09-03 16:00] VITALS: BP 148/84; TEMP 98.1; O2SAT 95
[2024-09-03 20:00] VITALS: BP 153/83; TEMP 98.2; O2SAT 94; O2SAT 96
[2024-09-03 20:10] VITALS: O2SAT 96; O2SAT 98
[2024-09-04] VITALS (7 sets, daily range): BP systolic 108–180; BP diastolic 63–89; TEMP 98.1–98.4; O2SAT 94–99
[2024-09-04 07:48] LABS: CALCIUM, SERUM 8.6 mg/dL (8.5-10.1); CREATININE 1.4 mg/dL (0.6-1.3); MAGNESIUM 2.4 mg/dL (1.8-2.4); PHOSPHORUS 2.9 mg/dL (2.5-4.9); POTASSIUM 3.3 mmol/L (3.5-5.1)
[2024-09-04 07:59] LABS: THYROID STIMULATING HORMONE 9.09 uIU/mL (0.358-3.74); URIC ACID 5.6 mg/dL (2.6-7.2)
[2024-09-04] MEDS: POTASSIUM CHLORIDE 20 MEQ TAB.PRT.SR PO SCH (10:31)
[2024-09-05 06:59] LABS: BASOPHILS % (AUTO) 0.3 % (0.0-2.0); EOSINOPHILS # (AUTO) 0.4 K/uL (0.0-0.7); EOSINOPHILS % (AUTO) 4.1 % (0.0-6.0); HEMATOCRIT 25 % (33-45); HEMOGLOBIN 7.6 g/dL (11.5-14.8); LYMPHOCYTES % (AUTO) 9.2 % (20.0-44.0); MEAN CORPUSCULAR HEMOGLOBIN 27 PG (26.0-33.0); MEAN CORPUSCULAR HGB CONC 30 g/dl (31.0-36.0); MEAN CORPUSCULAR VOLUME 89 fL (82-100); MONOCYTES # (AUTO) 0.8 K/uL (0.1-1.30); MONOCYTES % (AUTO) 7.5 % (2.0-12.0); NEUTROPHILS # (AUTO) 8.2 K/uL (1.8-8.9); NEUTROPHILS % (AUTO) 78.9 % (43.0-81.0); PLATELET COUNT (AUTO) 297 K/uL (150-450); RED BLOOD CELL COUNT(AUTO) 2.81 MIL/uL (4.0-5.2); RED CELL DISTRIBUTION WIDTH 18.9 % (11.5-15.0); WHITE BLOOD COUNT (AUTO) 10.3 K/uL (4.3-11.0)
[2024-09-05 07:11] VITALS: O2SAT 95
[2024-09-05 07:21] VITALS: O2SAT 98
[2024-09-05 08:00] VITALS: BP 152/89; TEMP 98.6; O2SAT 97
[2024-09-05 08:29] LABS: CREATININE 1.3 mg/dL (0.6-1.3); PHOSPHORUS 2.9 mg/dL (2.5-4.9); POTASSIUM 3.6 mmol/L (3.5-5.1)
[2024-09-05 08:36] LABS: ALBUMIN 1.4 g/dL (3.4-5.0)
[2024-09-05 10:18] LABS: EOSINOPHILS % (MANUAL) 5 % (0-4); LYMPHOCYTES % (MANUAL) 7 % (16-48); MONOCYTES % (MANUAL) 10 % (0-11.0); MYELOCYTES % 2 % (0-0); PLATELET ESTIMATE ADEQUATE
[2024-09-05 10:19] LABS: ANISOCYTOSIS 1+; BAND % (MANUAL) 1 % (0.0-5.0); NEUTROPHILS % (MANUAL) 75 (42-76)
[2024-09-05] MEDS ORDERED: DAPT500V2 IV (11:07)
[2024-09-05] MEDS ORDERED: MERO500P IV (11:07)
[2024-09-05] MEDS ORDERED: FLUC100P4 IV (11:07)
[2024-09-05 20:00] VITALS: BP 157/91; TEMP 97.9; O2SAT 99
[2024-09-05 20:37] VITALS: O2SAT 99
[2024-09-05 20:48] VITALS: O2SAT 99
[2024-09-05] MEDS: INSULIN GLARGINE, 100 UNIT/ML CARTRIDGE SQ SCH (23:31)
[2024-09-06] VITALS (7 sets, daily range): BP systolic 122–146; BP diastolic 79–108; TEMP 97.9–98.6; O2SAT 96–100
[2024-09-06] MEDS: LINEZOLID 600 MG TABLET PO SCH (22:06)
[2024-09-07 07:56] VITALS: O2SAT 98
[2024-09-07 08:00] VITALS: BP 129/71; TEMP 97.6; O2SAT 100
[2024-09-07 08:06] VITALS: O2SAT 99
[2024-09-07] MEDS: FLUCONAZOLE (100 MG) 100 MG TABLET PO SCH (08:29)
[2024-09-07 08:31] VITALS: BP 129/71
[2024-09-07 09:47] LABS: BASOPHILS % (AUTO) 0.3 % (0.0-2.0); EOSINOPHILS # (AUTO) 0.5 K/uL (0.0-0.7); EOSINOPHILS % (AUTO) 5.5 % (0.0-6.0); HEMATOCRIT 26 % (33-45); HEMOGLOBIN 8.2 g/dL (11.5-14.8); LYMPHOCYTES # (AUTO) 1.1 K/uL (0.8-4.8); LYMPHOCYTES % (AUTO) 11.1 % (20.0-44.0); MEAN CORPUSCULAR HEMOGLOBIN 28 PG (26.0-33.0); MEAN CORPUSCULAR HGB CONC 31 g/dl (31.0-36.0); MEAN CORPUSCULAR VOLUME 89 fL (82-100); MONOCYTES # (AUTO) 0.8 K/uL (0.1-1.30); MONOCYTES % (AUTO) 7.6 % (2.0-12.0); NEUTROPHILS # (AUTO) 7.5 K/uL (1.8-8.9); NEUTROPHILS % (AUTO) 75.5 % (43.0-81.0); PLATELET COUNT (AUTO) 208 K/uL (150-450); RED BLOOD CELL COUNT(AUTO) 2.97 MIL/uL (4.0-5.2); RED CELL DISTRIBUTION WIDTH 18.2 % (11.5-15.0)
[2024-09-07 10:02] LABS: ALBUMIN 1.6 g/dL (3.4-5.0); BILIRUBIN,TOTAL 0.4 mg/dL (0.2-1.0); CALCIUM, SERUM 7.9 mg/dL (8.5-10.1); MAGNESIUM 1.9 mg/dL (1.8-2.4); PHOSPHORUS 3.1 mg/dL (2.5-4.9); POTASSIUM 3.3 mmol/L (3.5-5.1); TOTAL PROTEIN, SERUM 5.8 g/dL (6.4-8.2)
[2024-09-07 11:44] LABS: EOSINOPHILS % (MANUAL) 4 % (0-4); LYMPHOCYTES % (MANUAL) 11 % (16-48); MONOCYTES % (MANUAL) 5 % (0-11.0); MYELOCYTES % 3 % (0-0); NEUTROPHILS % (MANUAL) 77 (42-76)
[2024-09-07 11:45] LABS: ANISOCYTOSIS 1+; PLATELET ESTIMATE ADEQUATE; STOMATOCYTES 1+
== END 2024-09-07 14:51 | DRG 871 ==
LOC: ER 12:35 → ICU 18:05 → MED 09-01 10:45 → TELE 09-01 11:34 → MED 09-01 23:04
PROVIDERS: ADMIT Internal Medicine; ATTEND Nurse Practitioner Family
DX: A41.9 Sepsis, unspecified organism (principal); G93.41 Metabolic encephalopathy; J69.0 Pneumonitis due to inhalation of food and vomit; J96.01 Acute respiratory failure with hypoxia; J44.0 Chronic obstructive pulmonary disease with (acute) lower respiratory infection; E87.20 Acidosis, unspecified; M86.18 Other acute osteomyelitis, other site; N17.9 Acute kidney failure, unspecified; E87.0 Hyperosmolality and hypernatremia; B37.49 Other urogenital candidiasis; I12.9 Hypertensive chronic kidney disease with stage 1 through stage 4 chronic kidney disease, or unspecified chronic kidney disease; Z20.822 Contact with and (suspected) exposure to COVID-19; E11.22 Type 2 diabetes mellitus with diabetic chronic kidney disease; G40.909 Epilepsy, unspecified, not intractable, without status epilepticus; G20.A1 Parkinson's disease without dyskinesia, without mention of fluctuations; F02.80 Dementia in other diseases classified elsewhere, unspecified severity, without behavioral disturbance, psychotic disturbance, mood disturbance, and anxiety; Z86.73 Personal history of transient ischemic attack (TIA), and cerebral infarction without residual deficits; E11.51 Type 2 diabetes mellitus with diabetic peripheral angiopathy without gangrene; E11.42 Type 2 diabetes mellitus with diabetic polyneuropathy; E11.65 Type 2 diabetes mellitus with hyperglycemia; G89.29 Other chronic pain; F32.A Depression, unspecified; Z79.890 Hormone replacement therapy; Z89.422 Acquired absence of other left toe(s); Z89.421 Acquired absence of other right toe(s); Z88.2 Allergy status to sulfonamides; Z79.899 Other long term (current) drug therapy; Z88.8 Allergy status to other drugs, medicaments and biological substances; Z91.018 Allergy to other foods; Z79.51 Long term (current) use of inhaled steroids; Z79.82 Long term (current) use of aspirin; Z79.4 Long term (current) use of insulin; M89.8X9 Other specified disorders of bone, unspecified site; E78.5 Hyperlipidemia, unspecified; E66.9 Obesity, unspecified; K21.9 Gastro-esophageal reflux disease without esophagitis; F41.9 Anxiety disorder, unspecified; F17.200 Nicotine dependence, unspecified, uncomplicated; E87.6 Hypokalemia; E11.69 Type 2 diabetes mellitus with other specified complication; D64.9 Anemia, unspecified; E86.0 Dehydration; Y95 Nosocomial condition; Z74.01 Bed confinement status; B95.2 Enterococcus as the cause of diseases classified elsewhere; N18.30 Chronic kidney disease, stage 3 unspecified
CPT/HCPCS: 36415; 70450-TC; 71045-TC; 80048-TC; 80053-TC; 80076-TC; 81001; 82040-TC; 82570-TC; 82728-TC; 82803-TC; 82962-TC; 83540-TC; 83605-TC; 83735-TC; 84100-TC; 84300-TC; 84443-TC; 84484-TC; 84550-TC; 85025-TC; 85730-TC; 87040-TC; 87081-TC; 87086-TC; 92526; 92611-TC; 93307-TC; 94760-TC; 94799-TC; A4216; A4223; A6253; A6403; G0378; J0878; J1450; J1644; J1815; J2020; J2185; J2405; J2543; J2916; J3370; J3480; J3490; J7030; J7040; J7050; J7060; J7070